=== PATIENT | female | born 1945 | race Caucasian/White ===

== ENCOUNTER → 2024-04-28 | Outpatient (CLI) | payer MEDICARE ==
[2024-04-28 18:48] LABS: Basophils # (A) 0.02 X 10*3/uL (0.00-0.10); Basophils % (A) 0.4 %; Eosinophils # (A) 0.19 X 10*3/uL (0.04-0.35); Eosinophils % (A) 3.5 %; HCT 34.5 % (37.2-46.3); HGB 11.3 g/dL (12.0-15.0); Lymphocytes # (A) 0.94 X 10*3/uL (0.90-5.00); Lymphocytes % (A) 17.5 %; MCH 32.4 pg (27.0-32.0); MCHC 32.8 g/dL (32.0-37.0); MCV 98.9 FL (80.0-97.0); Mean Platelet Volume 9.4 FL (9.5-12.2); Monocytes # (A) 0.69 X 10*3/uL (0.20-1.00); Monocytes % (A) 12.8 %; NRBC Per 100 WBC 0 X 10*3/uL (0.00-0.01); Neutrophils # (A) 3.51 X 10*3/uL (1.80-7.70); Neutrophils % (A) 65.4 %; Platelet Count 290 X 10*3/uL (140-440); RBC 3.49 X 10*6/uL (4.10-5.20); RDW 13.8 % (11.5-14.5); WBC 5.37 X 10*3/uL (4.50-10.00)
[2024-04-28 20:19] LABS: % Iron Saturation 23.92 (12.00-45.00); ALT 13 U/L (8-44); AST 21 U/L (13-35); Albumin 4.3 g/dL (3.8-4.9); Albumin/Globulin Ratio 1.23 Ratio (1.60-3.17); Alkaline Phosphatase 72 U/L (41-126); BUN/Creat Ratio 20.15 Ratio (12.00-20.00); Blood Urea Nitrogen 26.2 mg/dL (9.0-27.0); Calcium 9.9 mg/dL (8.7-10.3); Carbon Dioxide 24.1 mmol/L (21.6-31.8); Chloride 98 mmol/L (96-109); Globulin 3.5 g/dL (1.6-3.3); Glucose 113 mg/dL (70-110); Iron 83 UG/DL (50-170); Potassium 4.3 mmol/L (3.5-5.5); Sodium 135 mmol/L (135-145); Total Bilirubin 0.3 mg/dL (0.3-1.2); Total Iron Binding Capacity 347 UG/DL (228-460); Total Protein 7.8 g/dL (6.2-8.2)
== END | disposition home or self-care (01) ==
LOC: LABWHC1 11:27
PROVIDERS: ATTEND Family Medicine
DX: Z01.812 Encounter for preprocedural laboratory examination (principal); D64.9 Anemia, unspecified; I10 Essential (primary) hypertension
CPT/HCPCS: 36415; 80053; 82607; 82728; 82746; 83540; 83550; 85025

== ENCOUNTER 2024-05-11 15:58 | Inpatient (IN) | payer MEDICARE ==
--- NOTE | 2024-05-11 16:52 | P.HPOR ---
History of Present Illness H&P Date: 05/11/24 This is an 78-year-old female who presented in the office today for evaluation of the left hip after a fall at home today. Patient is status post left total hip arthroplasty with direct anterior approach on 05/07/[address] Ilan Guido. Patient states that she "blacked out" in the restroom earlier today in her home. Patient states that she had discomfort in the hip and could not bear any weight. X-rays done in the office today revealed dislocation of the left total hip arthroplasty. Patient was transported from our office to the emergency room via EMS. Patient's past medical history is significant for hypertension, Sjogren's and breast cancer. Patient denies any numbness, tingling, chest pain, headache or light-headedness. Past Medical History Past Medical History: Cancer, Hypertension Additional Past Medical History / Comment(s): Shogren's disease, breast cancer History of Any Multi-Drug Resistant Organisms: None Reported Past Surgical History: Joint Replacement Additional Past Surgical History / Comment(s): L hip replacement 2024. lumpectomy Past Psychological History: No Psychological Hx Reported Smoking Status: Former smoker Past Alcohol Use History: Occasional Medications and Allergies Allergies Allergy/AdvReac Type Severity Reaction Status Date / Time No Known Allergies Allergy Verified 05/11/24 16:11 Physical Examination On exam patient is resting comfortably in bed in no acute distress. Patient is alert and oriented 3. Left lower extremity: On inspection the left lower extremity is shortened and externally rotated. Skin is intact. The left lower extremity is warm and well perfused. Neurovascular and circulatory status are intact. Exams of the right lower extremity, bilateral upper extremities, head and neck are within normal limits. Assessment and Plan (1) Dislocation of hip, left, closed Status: Acute Code(s): S73.005A - UNSPECIFIED DISLOCATION OF LEFT HIP, INITIAL ENCOUNTER SNOMED Code(s): 758060666 (2) S/P total left hip arthroplasty Status: Acute Code(s): Z96.642 - PRESENCE OF LEFT ARTIFICIAL HIP JOINT SNOMED Code(s): 937313904076 (3) Dislocation of internal left hip prosthesis Status: Acute Code(s): T84.021A - DISLOCATION OF INTERNAL LEFT HIP PROSTHESIS, INIT ENCNTR SNOMED Code(s): 42709735591624280 Plan: 1. Patient is to be NPO after midnight. 2. Continue bedrest and pain control. 3. Appreciate input from internal medicine. 4. Planning for closed reduction, possible open reduction left total hip on 05/12/2024 pending medical clearance and patient consent.
[2024-05-11] MEDS ORDERED: NALOXONE 0.4 MG/ML 1 ML VIAL IV PRN (16:58)
[2024-05-11 17:03] LABS: Basophils % (A) 0 %; Eosinophils % (A) 0 %; HCT 30.9 % (34.0-46.0); HGB 10.1 gm/dL (11.4-16.0); Lymphocytes # (A) 0.5 k/uL (1.0-4.8); Lymphocytes % (A) 5 %; MCH 32.3 pg (25.0-35.0); MCHC 32.8 g/dL (31.0-37.0); MCV 98.5 fL (80.0-100.0); Monocytes # (A) 0.6 k/uL (0-1.0); Monocytes % (A) 7 %; Neutrophils # (A) 7.8 k/uL (1.3-7.7); Neutrophils % (A) 86 %; Platelet Count 343 k/uL (150-450); RBC 3.14 m/uL (3.80-5.40); RDW 12.8 % (11.5-15.5); WBC 9.1 k/uL (3.8-10.6)
--- NOTE | 2024-05-11 17:04 | ED ---
General Adult HPI - General Chief complaint: Fall Stated complaint: Fall-L hip injury Time Seen by Provider: 05/11/24 16:12 Source: patient, EMS Mode of arrival: EMS Limitations: no limitations - History of Present Illness Initial comments: Dictation was produced using [employer] dictation software. please excuse any grammatical, word or spelling errors. Chief Complaint: 78-year-old female presents to the emergency department from Ortho office for left hip dislocation History of Present Illness: Patient is 78-year-old female she fell and dislocated her left hip. Patient states that she must of passed out. She went to Ortho office and was told to come to the ER to be directly admitted for operative hip relocation. Last week she just had her hip replaced by Dr. Guido. The ROS documented in this emergency department record has been reviewed and confirmed by me. Those systems with pertinent positive or negative responses have been documented in the HPI. All other systems are other negative and/or noncontributory. - Related Data Allergies Allergy/AdvReac Type Severity Reaction Status Date / Time No Known Allergies Allergy Verified 05/11/24 16:11 Review of Systems ROS Statement: Those systems with pertinent positive or pertinent negative responses have been documented in the HPI. ROS Other: All systems not noted in ROS Statement are negative. Past Medical History Past Medical History: Cancer, Hypertension Additional Past Medical History / Comment(s): Shogren's disease, breast cancer History of Any Multi-Drug Resistant Organisms: None Reported Past Surgical History: Joint Replacement Additional Past Surgical History / Comment(s): L hip replacement 2024. lumpectomy Past Psychological History: No Psychological Hx Reported Smoking Status: Former smoker Past Alcohol Use History: Occasional General Exam - General Exam Comments Initial Comments: PHYSICAL EXAM: General Impression: Alert and oriented x3, not in acute distress HEENT: Normocephalic atraumatic, extra-ocular movements intact, pupils equal and reactive to light bilaterally, mucous membranes moist. Cardiovascular: Heart regular rate and rhythm Chest: Able to complete full sentences, no retractions, no tachypnea Abdomen: abdomen soft, non-tender, non-distended, no organomegaly Musculoskeletal: Pulses present and equal in all extremities, no peripheral edema short left lower extremity, palpatory tenderness to the left hip Motor: no focal deficits noted Neurological: CN II-XII grossly intact, no focal motor or sensory deficits noted Skin: Intact with no visualized rashes Psych: Normal affect and mood Limitations: no limitations Course Vital Signs 05/11/24 16:07 Temperature 98.4 F Pulse Rate 61 Respiratory 18 Rate Blood Pressure 107/67 O2 Sat by Pulse 98 Oximetry Medical Decision Making - Medical Decision Making Was pt. sent in by a medical professional or institution (, [facility], MAILROOM ASSISTANT, urgent care, hospital, or jail...) When possible be specific @ -No Did you speak to anyone other than the patient for history (EMS, parent, family, police, friend...)? What history was obtained from this source @ -No Did you review nursing and triage notes (agree or disagree)? Why? @ -I reviewed and agree with nursing and triage notes Were old charts reviewed (outside hosp., previous admission, EMS record, old EKG, old radiological studies, urgent care reports/EKG's, jail records)? Report findings @ -No old charts were reviewed Differential Diagnosis (chest pain, altered mental status, abdominal pain women, abdominal pain men, vaginal bleeding, musculoskeletal, weakness, fever, dyspnea, syncope, headache, dizziness, GI bleed, back pain, seizure, CVA, palpatations, mental health)? @ -Differential Syncope: Valvular disease, hypertrophic cardiomyopathy, pulmonary embolism, tamponade, tachycardia, bradycardia, [place], hypovolemia, hemorrhage, dissection, anemia, intracranial hemorrhage, seizure, hypoglycemia, carbon monoxide poisoning, this is not meant to be an all-inclusive list. EKG interpreted by me (3pts min.). @ -None done X-rays interpreted by me (1pt min.). @ -None done CT interpreted by me (1pt min.). @ -None done U/S interpreted by me (1pt. min.). @ -None done What testing was considered but not performed or refused? (CT, X-rays, U/S, labs)? Why? @ -None What meds were considered but not given or refused? Why? @ -None Was smoking cessation discussed for >3mins.? @ -No Were there social determinants of health that impacted care today? How? (Homelessness, low income, unemployed, alcoholism, drug addiction, transportation, low edu. Level, literacy, decrease access to med. care, detention, rehab)? @ -No Was there de-escalation of care discussed even if they declined (Discuss DNR or withdrawal of care, Hospice)? DNR status @ -No What co-morbidities impacted this encounter? (DM, HTN, Smoking, COPD, CAD, Cancer, CVA, ARF, Chemo, Hep., AIDS, mental health diagnosis, sleep apnea, morbid obesity)? @ -None Was patient admitted / discharged? Hospital course, mention meds given and route, prescriptions, significant lab abnormalities, going to OR and other pertinent info. @ -78-year-old female sent in from Ortho office for admission. Plan is for patient to have operative left hip relocation. Patient recently had left hip total arthroplasty. Vital signs are stable. Pending labs and imaging. Patient admitted Did you discuss the management of the patient with other professionals (professionals i.e. , PA, MAILROOM ASSISTANT, lab, RT, psych nurse, oncology social worker, embedded software design engineer, teacher, catapult and arresting gear officer, protective services case worker)? Give summary @ -No Was critical care preformed (if so, how long)? @ -No Undiagnosed new problem with uncertain prognosis? @ -No Drug Therapy requiring intensive monitoring for toxicity (Heparin, Nitro, Insulin, Cardizem)? @ -No Were any procedures done? @ -No Diagnosis/symptom? Acute, or Chronic, or Acute on Chronic? Uncomplicated (without systemic symptoms) or Complicated (systemic symptoms)? @ -Prosthetic left hip dislocation Side effects of treatment? @ -No Exacerbation, Progression, or Severe Exacerbation? @ -No Poses a threat to life or bodily function? How? (Chest pain, [place], [place], pneumonia, PE, COPD, DKA, ARF, appy, cholecystitis, CVA, Diverticulitis, Homicidal, Suicidal, threat to staff... and all critical care pts) @ -yes Disposition Clinical Impression: Hip dislocation, left Disposition: ADMITTED IP TO [facility] Condition: Fair Referrals: None,Stated [Primary Care Provider] - 1-2 days Decision Time: 17:03
--- NOTE | 2024-05-11 17:07 | XR ---
EXAMINATION TYPE: XR Hip Limited LT DATE OF EXAM: 05/11/2024 4:59 PM COMPARISON: None. CLINICAL INDICATION: Female, 78 years old with history of injury, pain TECHNIQUE: AP view(s) obtained. FINDINGS: There is dislocation of the left femoral prosthesis from the acetabular component. No acute fractures are identified. Recent postsurgical air is noted in the proximal thigh. IMPRESSION: 1. Dislocation of the femoral prosthesis from the acetabular component. 2. No acute fractures. [facility], , 05/11/2024 5:05 PM
[2024-05-11 17:15] LABS: ALT 32 U/L (4-34); AST 46 U/L (14-36); African American GFR (CKD) 58 (>60 ml/min/1.73 sqM); Albumin 3.6 g/dL (3.5-5.0); Alkaline Phosphatase 97 U/L (38-126); Anion Gap 14 mmol/L; Blood Urea Nitrogen 30 mg/dL (7-17); Calcium 9.2 mg/dL (8.4-10.2); Carbon Dioxide 26 mmol/L (22-30); Chloride 90 mmol/L (98-107); Glucose 143 mg/dL (74-99); Non-African American GFR(CKD) 50 (>60 ml/min/1.73 sqM); Potassium 3.9 mmol/L (3.5-5.1); Sodium 130 mmol/L (137-145); Total Bilirubin 0.5 mg/dL (0.2-1.3); Total Protein 6.9 g/dL (6.3-8.2)
[2024-05-11] MEDS: DILTIAZEM 125 MG in SODIUM CHLORIDE 0.9% 100 ML IV SCH (17:46)
[2024-05-11] MEDS: HEPARIN SODIUM 1,000 UN/ML (10ML VL) IV ONE (17:54)
[2024-05-11] MEDS: HEPARIN SOD,PORK IN 0.45% NACL 25,000 UNIT in 0.45% NACL 1 250ML.BAG IV SCH (17:55)
[2024-05-11] MEDS: DILTIAZEM DRIP BOLUS FROM BAG 1 MG SOLN IV ONE (17:59)
[2024-05-11] MEDS: METOPROLOL TARTRATE 25 MG TAB PO SCH (18:34)
[2024-05-11] MEDS: MORPHINE SULFATE 4 MG/ML SYRINGE IVP PRN (19:57)
--- NOTE | 2024-05-11 21:01 | CT ---
EXAMINATION TYPE: CT brain wo con DATE OF EXAM: 05/11/2024 8:34 PM COMPARISON: None. CLINICAL INDICATION: Female, 78 years old with history of fall, syncope, Fall/syncope TECHNIQUE: CT of the brain is performed utilizing 3 mm thick sections through the posterior fossa and 3 mm thick sections through the remaining calvarium. Study is performed within 24 hours of arrival to the hospital. Contrast used: mL of , (none if empty) CT DLP: 1131.4 mGycm, Automated exposure control for dose reduction was used. FINDINGS: No abnormal hyperdensity is present to suggest an acute intracranial hemorrhage. No mass lesion is evident. No acute infarcts are evident. Periventricular white matter hypodensity is present, likely on the bas is of chronic white matter ischemic changes. Ventricles and sulci are appropriate for the patient age. Paranasal sinuses and mastoid air cells within the [id number] are clear. IMPRESSION: 1. No acute intracranial process. Follow up MRI can be performed as clinically indicated. 2. Chronic appearing periventricular white matter ischemic-type changes [facility], , 05/11/2024 8:59 PM
[2024-05-11] MEDS: SODIUM CHLORIDE 0.9% 1,000 ML IV SCH (22:08)
[2024-05-12] MEDS: HEPARIN SODIUM 1,000 UN/ML (10ML VL) IV PRN (02:03)
[2024-05-12] MEDS: ASPIRIN 81 MG PO SCH (09:23)
[2024-05-12] MEDS ORDERED: DOCUSATE 100 MG CAP PO PRN (09:30)
[2024-05-12 09:39] LABS: HCT 29.2 % (34.0-46.0); HGB 9.3 gm/dL (11.4-16.0); Hypochromasia Slight; MCH 32.3 pg (25.0-35.0); MCHC 31.9 g/dL (31.0-37.0); MCV 101.4 fL (80.0-100.0); Mean Platelet Volume 7.7; Platelet Count 351 k/uL (150-450); RBC 2.88 m/uL (3.80-5.40); RDW 12.8 % (11.5-15.5); WBC 9.5 k/uL (3.8-10.6)
[2024-05-12 09:59] LABS: ALT 77 U/L (4-34); AST 99 U/L (14-36); African American GFR (CKD) 59 (>60 ml/min/1.73 sqM); Albumin 3.1 g/dL (3.5-5.0); Alkaline Phosphatase 297 U/L (38-126); Anion Gap 10 mmol/L; Blood Urea Nitrogen 25 mg/dL (7-17); Calcium 8.6 mg/dL (8.4-10.2); Carbon Dioxide 26 mmol/L (22-30); Chloride 92 mmol/L (98-107); Glucose 108 mg/dL (74-99); Non-African American GFR(CKD) 51 (>60 ml/min/1.73 sqM); Potassium 3.9 mmol/L (3.5-5.1); Sodium 128 mmol/L (137-145); Total Bilirubin 0.8 mg/dL (0.2-1.3); Total Protein 6.1 g/dL (6.3-8.2)
[2024-05-12] MEDS: hydroCHLOROthiazide 12.5 MG CAP PO SCH (10:32)
[2024-05-12] MEDS: cycloSPORINE 0.05% OPHTH 0.4 ML DROPERETTE BOTH EYES SCH (10:32)
[2024-05-12] MEDS: LOSARTAN 50 MG TAB PO SCH (10:32)
[2024-05-12] MEDS: METOPROLOL TARTRATE 25 MG TAB PO STA (11:52)
--- NOTE | 2024-05-12 12:33 | P.CRDCN ---
History of Present Illness History of present illness: HISTORY OF PRESENT ILLNESS: This is a 78-year-old female with a past medical history significant for hypertension, rheumatoid arthritis, and recent hip replacement. Patient follows in the office with Dr. Stallings. We have been asked to see the patient in consultation for atrial fibrillation with RVR. Patient examined at the bedside in the emergency room. Patient is status post left total hip arthroplasty on 05/07/[address] Guido. Patient states that she was at home using the ba throom. She states that she was sitting on the toilet and tried to get up and then she blacked out and woke up on the floor. She does report feeling dizzy prior to this happening. She denied having any palpitations. Denied any chest pain or shortness of breath. The patient does report that she thinks her pain pills have been contributing to some of her symptoms recently. Patient presented to the emergency room for further evaluation. Patient was found to be in atrial fibrillation with RVR. Patient was started on IV heparin and IV Cardizem. She denies a known history of atrial fibrillation. She remains in atrial fibrillation at the time of examination with a heart rate in the 90s. Her IV Cardizem is infusing at 15 mg an hour. DIAGNOSTICS: - EKG reveals A-fib with RVR. - Laboratory data: WBC 9.5. Hemoglobin 9.3. Platelet count 251. Sodium 128. Potassium 3.9. BUN 25. Creatinine 1.04. Magnesium 2.0. Troponin 0.202. 0.249. 0.356. - Current home cardiac medications include amlodipine 5 mg at night, losartanhydrochlorothiazide 100-12.5 mg daily, metoprolol tartrate 50 mg daily. - Most recent echocardiogram obtained in January 2022 revealed ejection fraction 55%, mild concentric LVH, moderate pulmonary hypertension, mild right ventricular enlargement, aortic valve sclerosis - Patient underwent Lexiscan stress test in June 2023 which was negative for ischemia REVIEW OF SYSTEMS: At the time of my exam: CONSTITUTIONAL: Denies fever or chills. HEENT: Denies blurred vision, vision changes, or eye pain. Denies hemoptysis CARDIOVASCULAR: Denies chest pain. Denies orthopnea. Denies PND. Denies palpitations RESPIRATORY: Denies shortness of breath. GASTROINTESTINAL: Denies abdominal pain. Denies nausea or vomiting. HEMATOLOGIC: Denies bleeding disorders. GENITOURINARY: Denies any blood in urine. SKIN: Denies pruitis. Denies rash. PHYSICAL EXAM: VITAL SIGNS: Reviewed. GENERAL: Well-developed in no acute distress. HEENT: Head is normocephalic. Pupils are equal, round. Sclerae anicteric. Mucous membranes of the mouth are moist. Neck supple. No JVD or thyromegaly LUNGS: Respirations even and unlabored. Lungs essentially clear to auscultation bilaterally. HEART: Irregular rate and rhythm. S1 and S2 heard. ABDOMEN: Soft. Nondistended. Nontender. EXTREMITIES: Normal range of motion. No clubbing or cyanosis. Peripheral pulses intact. No lower extremity edema NEUROLOGIC: Awake and alert. Oriented x 3. ASSESSMENT: Syncope New onset atrial fibrillation with RVR, exact duration unknown Elevated troponins, likely type II IL secondary to oxygen supply/demand mismatch Hyponatremia Left hip dislocation Status post left total hip arthroplasty, 05/07/2024 Hypertension History of rheumatoid arthritis Moderate pulmonary hypertension PLAN: Obtain 2D echo to assess cardiac structure and function TSH checked and within normal limits Continue IV heparin. Postoperatively, patient will need to be transitioned to oral anticoagulation Continue IV Cardizem for rate control. Wean as heart rate will tolerate to maintain heart rate less than 100 Decrease losartan to 50 mg daily Increase metoprolol to tartrate to 50 mg twice a day Continue telemetry monitoring Patient is scheduled to undergo closed reduction possible open reduction of left total hip today with orthopedics There are no absolute contraindications for patient to proceed from a cardiac standpoint Further recommendations pending patient course Nurse practitioner note has been reviewed by physician. Signing provider agrees with the documented findings, assessment, and plan of care documented by RN MILITARY as a scribe. Past Medical History Past Medical History: Cancer, Hypertension Additional Past Medical History / Comment(s): Shogren's disease, breast cancer History of Any Multi-Drug Resistant Organisms: None Reported Past Surgical History: Joint Replacement Additional Past Surgical History / Comment(s): L hip replacement 2024. lumpectomy Past Psychological History: No Psychological Hx Reported Smoking Status: Former smoker Past Alcohol Use History: Occasional Medications and Allergies Home Medications Medication Instructions Recorded Confirmed Type Docusate [Colace] 100 mg PO BID PRN 05/11/24 05/11/24 History HYDROcodone/APAP 7.5-325MG [[place] 1 - 2 tab PO Q6H PRN MDD 6 tablets 05/11/24 05/11/24 History 7.5-325] Losartan/Hydrochlorothiazide 1 tab PO DAILY 05/11/24 05/11/24 History [Hyzaar 100-12.5 Tablet] Metoprolol Tartrate [Lopressor] 50 mg PO DAILY 05/11/24 05/11/24 History Pilocarpine [Salagen] 10 mg PO QAM 05/11/24 05/11/24 History Pilocarpine [Salagen] 15 mg PO HS 05/11/24 05/11/24 History amLODIPine [Norvasc] 5 mg PO HS 05/11/24 05/11/24 History cycloSPORINE 0.05% OPHTH SOLN 1 drop BOTH EYES BID 05/11/24 05/11/24 History [Restasis] Allergies Allergy/AdvReac Type Severity Reaction Status Date / Time No Known Allergies Allergy Verified 05/11/24 17:37 Physical Exam Vitals: Vital Signs Temp Pulse Resp BP Pulse Ox 05/12/24 11:11 93 18 126/57 100 05/12/24 08:00 113 H 20 117/72 94 L 05/12/24 06:00 98.1 F 114 H 20 112/53 95 05/12/24 02:00 98 20 125/58 100 05/12/24 00:30 96 20 135/60 95 05/11/24 23:18 76 18 101/54 97 05/11/24 20:00 99 18 102/75 98 05/11/24 18:26 144 H 18 123/69 98 05/11/24 18:00 158 H 18 107/85 05/11/24 16:07 98.4 F 61 18 107/67 98 Intake and Output 05/11/24 05/12/24 05/12/24 22:59 06:59 14:59 Intake Total 5.833 152.453 125 Balance 5.833 152.453 125 Intake: Intake, IV Titration 5.833 152.453 125 Amount Diltiazem 125 mg In 5.833 97 125 Sodium Chloride 0.9% 100 ml @ 10 MG/HR 10 mls/hr IV .[id number] [facility] Rx#: [id number] Heparin Sod,Pork in 0.45% 55.453 NaCl 25,000 unit In 0.45 % NaCl 1 250ml.bag @ 12 UNITS/KG/HR 6.804 mls/hr IV .Q24H [facility] Rx#: [id number] Other: Weight 56.699 kg Results 05/12/24 06:49 05/12/24 06:49 Cardiac Enzymes 05/11/24 05/11/24 05/11/24 Range/Units 16:47 17:17 20:00 AST 46 H (14-36) U/L Troponin I 0.202 H* 0.249 H* (0.000-0.034) ng/mL 05/12/24 05/12/24 Range/Units 00:09 06:49 AST 99 H (14-36) U/L Troponin I 0.356 H* (0.000-0.034) ng/mL Coagulation 05/12/24 05/12/24 Range/Units 00:09 06:49 APTT 28.0 45.4 H (22.0-30.0) sec CBC 05/11/24 05/12/24 Range/Units 16:47 06:49 WBC 9.1 9.5 (3.8-10.6) k/uL RBC 3.14 L 2.88 L (3.80-5.40) m/uL Hgb 10.1 L 9.3 L (11.4-16.0) gm/dL Hct 30.9 L 29.2 L (34.0-46.0) % Plt Count 343 351 (150-450) k/uL Comprehensive Metabolic Panel 05/11/24 05/12/24 Range/Units 16:47 06:49 Sodium 130 L 128 L (137-145) mmol/L Potassium 3.9 3.9 (3.5-5.1) mmol/L Chloride 90 L 92 L (98-107) mmol/L Carbon Dioxide 26 26 (22-30) mmol/L BUN 30 H 25 H (7-17) mg/dL Creatinine 1.06 H 1.04 (0.52-1.04) mg/dL Glucose 143 H 108 H (74-99) mg/dL Calcium 9.2 8.6 (8.4-10.2) mg/dL AST 46 H 99 H (14-36) U/L ALT 32 77 H (4-34) U/L Alkaline Phosphatase 97 297 H (38-126) U/L Total Protein 6.9 6.1 L (6.3-8.2) g/dL Albumin 3.6 3.1 L (3.5-5.0) g/dL Current Medications Generic Name Dose Route Start Last Admin Trade Name Freq PRN Reason Stop Dose Admin Amlodipine Besylate 5 mg 05/12/24 21:00 Amlodipine 5 Mg Tab PO HS MAGDY Aspirin 81 mg 05/12/24 09:30 05/12/24 09:23 Aspirin 81 Mg PO Not Given DAILY MAGDY Cyclosporine 1 drops 05/12/24 09:00 05/12/24 10:32 Cyclosporine 0.05% Ophth 0.4 Ml Droperette BOTH EYES Not Given BID MAGDY Docusate Sodium 100 mg 05/12/24 09:30 Docusate 100 Mg Cap PO BID PRN Constipation Heparin Sodium (Porcine) 0 unit 05/11/24 17:16 05/12/24 02:03 Heparin Sodium 1,000 Un/Ml (10ml Vl) IV 2,834.5 unit PER PROTOCOL PRN Administration Low PTT Protocol Hydrochlorothiazide 12.5 mg 05/12/24 09:00 05/12/24 10:32 Hydrochlorothiazide 12.5 Mg Cap PO 12.5 mg DAILY MAGDY Administration Sodium Chloride 1,000 mls @ 20 mls/hr 05/11/24 17:00 05/11/24 22:08 Saline 0.9% IV 20 mls/hr .Q24H MAGDY Administration Diltiazem HCl 125 mg/ Sodium 125 mls @ 10 mls/hr 05/11/24 17:15 05/12/24 10:30 Chloride IV 15 mg/hr .[id number] MAGDY 15 mls/hr Administration 10 MG/HR Heparin Sodium/Sodium Chloride 250 mls @ 6.804 mls/hr 05/11/24 17:30 05/12/24 02:04 25,000 unit/ Sodium Chloride IV 15 units/kg/hr .Q24H MAGDY 8.505 mls/hr Titration Protocol 12 UNITS/KG/HR Losartan Potassium 50 mg 05/13/24 09:00 Losartan 50 Mg Tab PO DAILY [facility] Metoprolol Tartrate 50 mg 05/12/24 21:00 Metoprolol Tartrate 50 Mg Tab PO BID [facility] Morphine Sulfate 4 mg 05/11/24 19:50 05/12/24 08:26 Morphine Sulfate 4 Mg/Ml Syringe IVP 4 mg Q4HR PRN Administration Pain Naloxone HCl 0.2 mg 05/11/24 16:58 Naloxone 0.4 Mg/Ml 1 Ml Vial IV Q2M PRN Opioid Reversal Intake and Output 05/11/24 05/12/24 05/12/24 22:59 06:59 14:59 Intake Total 5.833 152.453 125 Balance 5.833 152.453 125 Intake: Intake, IV Titration 5.833 152.453 125 Amount Diltiazem 125 mg In 5.833 97 125 Sodium Chloride 0.9% 100 ml @ 10 MG/HR 10 mls/hr IV .[id number] [facility] Rx#: [id number] Heparin Sod,Pork in 0.45% 55.453 NaCl 25,000 unit In 0.45 % NaCl 1 250ml.bag @ 12 UNITS/KG/HR 6.804 mls/hr IV .Q24H [facility] Rx#: [id number] Other: Weight 56.699 kg 05/12/24 06:49 05/12/24 06:49
--- NOTE | 2024-05-12 13:24 | P.CONS ---
History of Present Illness - Reason for Consult Consult date: 05/12/24 Medical Clearance/Medical Management Requesting physician: Ilan Guido - History of Present Illness History of Presenting Illness: Patient is a very pleasant 78-year-old female with a past medical history of hypertension, breast cancer status post lumpectomy, Sjogren's disease, and recent left total hip arthroplasty on 05/07/[address] Melendez. She presented to the emergency department secondary to fall/syncopal episode. Patient reports she got up to use the restroom and upon standing became dizzy/lightheaded resulting in her blacking out/syncopal episode falling to the floor onto her left hip. She denies having any headache, changes in vision or hearing, chest pain, palpitations, shortness of breath, cognitive complaints. Patient reports severe pain left hip and lower extremity and is stated above admits to dizziness/lightheadedness prior to syncopal episode/fall. Upon arrival to our facility, patient underwent evaluation in the emergency department. X-ray left hip was completed revealing a dislocation of the femoral prosthesis from the acetabular component with no acute fractures. Vital signs upon arrival show blood pressure 107/67, heart rate 61, respiratory rate 18, temp 98.4 F, and SpO2 of 98% on room air. Shortly after arrival patient was found to be tachycardic with heart rate in 150s. EKG was completed showing atrial fibrillation with RVR at 159 bpm with T wave inversion in inferior lateral leads I, II, III, aVL, aVF, and V4 through V6. CT brain was negative for acute intracranial process showing chronic appearing periventricular white matter ischemic changes. Labs were completed and reviewed. CBC showing normocytic anemia with hemoglobin of 10.1. BMP showing mild hyponatremia with sodium of 130, chloride of 90, BUN 30, creatinine 1.06, and GFR 50. Blood glucose was 143. Liver profile showing slightly elevated AST of 46 otherwise normal findings. Troponin was elevated at 0.202 trended resulting at 0.202, 0.249, and 0.356. Patient was started on Cardizem infusion and heparin infusion. She was admitted to orthopedic surgery team and we were consulted for medical clearance followed by medical management throughout hospitalization. Cardiology was consulted secondary to new onset atrial fibrillation with RVR and syncope. Review of systems: Pertinent positives and negatives as discussed in HPI, a complete review of systems was performed and all other systems are negative. Physical exam: Vital signs reviewed and stable. General: Nontoxic, no distress and appears stated age. Derm: Skin warm and dry, normal coloration for ethnicity. Head: Atraumatic, normocephalic and symmetric. Eyes: EOM's intact, no lid lag, and anicteric sclera Mouth: no lip lesions, mucus membranes moist Cardiovascular: Irregularly irregular with normal S1S2, no murmur, positive posterior tibial pulses bilaterally, and cap refill < 2 seconds. Lungs: Respirations even, regular, and unlabored on room air. Lungs CTA bilaterally, no rhonchi, no rales, no wheezing, and no accessory muscle usage. Abdominal: soft, nontender to palpation, no guarding, no appreciable organomegaly Ext:. No gross muscle atrophy, no edema, no contractures. Sensation intact. Movement of toes intact. Left lower extremity positive shortening with lateral rotation. Neuro: Speech clear, face symmetrical and CN II-XII grossly intact with no noted focal neuro deficits Psych: Alert and oriented to person, place, time, and situation. Appropriate and pleasant affect. Assessment and Plan of Care: Dislocation of the femoral prosthesis from the acetabular component Status post left total hip arthroplasty on 05/07/2024 -METS score > 4. -NSQIP score showing patient at a below average risk for serious complication at 5.3% with average risk being 6%, average risk of cardiac complication at 0.8%, and an average risk of at 1.1% with average risk of 1.1%. -Discussed with orthopedic surgery, patient will require cardiac clearance prior to proceeding with planned surgical intervention. -If patient receives cardiac clearance may proceed from medical perspective with planned closed reduction and internal rotation of left femoral prosthesis from the acetabular component. New onset atrial fibrillation with RVR NSTEMI, likely type II secondary to RVR Syncopal episode Microcytic anemia Transaminitis, likely reactive secondary to above Hyponatremia Hypertension -Cardiology consulted for evaluation and surgical clearance -Order placed for echocardiogram -Continue Cardizem infusion at 10 mg/h and titrate up to 15 mg/h for goal heart rate of 80-100 -Telemetry monitoring. -Continue low intensity heparin infusion with close monitoring of PTT for goal therapeutic range of 45 to 79 seconds. -Patient started on aspirin 81 mg daily and to continue metoprolol titrate 50 mg daily along with losartan 100 mg daily. -Hold hydrochlorothiazide secondary to hyponatremia. -Continue close monitoring of sodium level, hemoglobin, and liver enzymes with repeat a.m. labs. Additional orders may be placed pending these results. History of breast cancer -Patient is status postlumpectomy, recommend continuation of yearly cancer scre enings. Data and imaging reviewed: As stated above in HPI Thank you for allowing us to participate in the care of this pleasant patient. Do not hesitate to contact us with questions. Someone can be reached from the [facility] hospitalist group all hours of the day at [phone] or via [facility]. Patient was seen independently by Nurse Practitioner. This document was prepared using Rol[employer] dictation software. Please allow for errors in pension consultant while rare they do occur. Anival Escalante NP rendered care for this patient independently, reviewed the findings and plan as documented in the note above and agree with plan. I did not physically speak with or examine the patient on this date. Past Medical History Past Medical History: Cancer, Hypertension Additional Past Medical History / Comment(s): Shogren's disease, breast cancer History of Any Multi-Drug Resistant Organisms: None Reported Past Surgical History: Joint Replacement Additional Past Surgical History / Comment(s): L hip replacement 2024. lumpectomy Past Psychological History: No Psychological Hx Reported Smoking Status: Former smoker Past Alcohol Use History: Occasional Medications and Allergies Home Medications Medication Instructions Recorded Confirmed Type Docusate [Colace] 100 mg PO BID PRN 05/11/24 05/11/24 History HYDROcodone/APAP 7.5-325MG [Bronson 1 - 2 tab PO Q6H PRN MDD 6 tablets 05/11/24 05/11/24 History 7.5-325] Losartan/Hydrochlorothiazide 1 tab PO DAILY 05/11/24 05/11/24 History [Hyzaar 100-12.5 Tablet] Metoprolol Tartrate [Lopressor] 50 mg PO DAILY 05/11/24 05/11/24 History Pilocarpine [Salagen] 10 mg PO QAM 05/11/24 05/11/24 History Pilocarpine [Salagen] 15 mg PO HS 05/11/24 05/11/24 History amLODIPine [Norvasc] 5 mg PO HS 05/11/24 05/11/24 History cycloSPORINE 0.05% OPHTH SOLN 1 drop BOTH EYES BID 05/11/24 05/11/24 History [Restasis] Allergies Allergy/AdvReac Type Severity Reaction Status Date / Time No Known Allergies Allergy Verified 05/11/24 17:37 Physical Exam Vitals: Vital Signs Temp Pulse Resp BP Pulse Ox 05/12/24 08:00 113 H 20 117/72 94 L 05/12/24 06:00 98.1 F 114 H 20 112/53 95 05/12/24 02:00 98 20 125/58 100 05/12/24 00:30 96 20 135/60 95 05/11/24 23:18 76 18 101/54 97 05/11/24 20:00 99 18 102/75 98 05/11/24 18:26 144 H 18 123/69 98 05/11/24 18:00 158 H 18 107/85 05/11/24 16:07 98.4 F 61 18 107/67 98 Intake and Output 05/11/24 05/12/24 05/12/24 22:59 06:59 14:59 Intake Total 5.833 152.453 Balance 5.833 152.453 Intake: Intake, IV Titration 5.833 152.453 Amount Diltiazem 125 mg In 5.833 97 Sodium Chloride 0.9% 100 ml @ 10 MG/HR 10 mls/hr IV .[id number] MAGDY Rx#: [id number] Heparin Sod,Pork in 0.45% 55.453 NaCl 25,000 unit In 0.45 % NaCl 1 250ml.bag @ 12 UNITS/KG/HR 6.804 mls/hr IV .Q24H MAGDY Rx#: [id number] Other: Weight 56.699 kg Results CBC & Chem 7: 05/12/24 06:49 05/12/24 06:49 Labs: Abnormal Lab Results - Last 24 Hours (Table) 05/11/24 05/11/24 05/11/24 Range/Units 16:47 16:47 17:17 RBC 3.14 L (3.80-5.40) m/uL Hgb 10.1 L (11.4-16.0) gm/dL Hct 30.9 L (34.0-46.0) % Neutrophils # 7.8 H (1.3-7.7) k/uL Lymphocytes # 0.5 L (1.0-4.8) k/uL APTT (22.0-30.0) sec Sodium 130 L (137-145) mmol/L Chloride 90 L (98-107) mmol/L BUN 30 H (7-17) mg/dL Creatinine 1.06 H (0.52-1.04) mg/dL Glucose 143 H (74-99) mg/dL AST 46 H (14-36) U/L Troponin I 0.202 H* (0.000-0.034) ng/mL 05/11/24 05/12/24 05/12/24 Range/Units 20:00 00:09 06:49 RBC (3.80-5.40) m/uL Hgb (11.4-16.0) gm/dL Hct (34.0-46.0) % Neutrophils # (1.3-7.7) k/uL Lymphocytes # (1.0-4.8) k/uL APTT 45.4 H (22.0-30.0) sec Sodium (137-145) mmol/L Chloride (98-107) mmol/L BUN (7-17) mg/dL Creatinine (0.52-1.04) mg/dL Glucose (74-99) mg/dL AST (14-36) U/L Troponin I 0.249 H* 0.356 H* (0.000-0.034) ng/mL
[2024-05-12] MEDS ORDERED: MAGNESIUM HYDROXIDE 2,400 MG/30 ML CUP PO PRN (15:54)
[2024-05-12] MEDS ORDERED: NALOXONE 0.4 MG/ML 1 ML VIAL IV PRN (15:54)
[2024-05-12] MEDS ORDERED: HYDROmorphone 0.5 MG/0.5 ML SYRINGE IVP PRN ×3 (15:54)
[2024-05-12] MEDS ORDERED: ONDANSETRON 4 MG/2 ML VIAL IVP PRN (15:54)
[2024-05-12] MEDS ORDERED: HYDROcodone/APAP 5-325MG 1 EACH TAB PO PRN ×2 (15:58)
[2024-05-12] MEDS ORDERED: KETAMINE HCL IN 0.9 % NACL 50 MG/5 ML SYRINGE ONE (17:17)
[2024-05-12] MEDS ORDERED: SUCCINYLCHOLINE CHLORIDE 200 MG/10 ML VIAL IV ONE (17:17)
[2024-05-12] MEDS ORDERED: WATER FOR INJECTION, STERILE 10 ML VIAL IV ONE (17:17)
[2024-05-12] MEDS ORDERED: PHENYLEPHRINE-0.9% NACL SYG 1,000 MCG/10 ML SYRINGE ONE (17:17)
[2024-05-12] MEDS ORDERED: ceFAZolin 1 GM/50 ML BAG (PMX) ONE (17:17)
[2024-05-12] MEDS ORDERED: PROPOFOL 10 MG/ML 20 ML VIAL IV ONE (17:17)
[2024-05-12] MEDS ORDERED: fentaNYL (PF) 50 MCG/ML 2 ML AMP ONE (17:17)
[2024-05-12] MEDS ORDERED: ePHEDrine 50 MG/ML 1 ML VIAL ONE (17:17)
[2024-05-12] MEDS: LACTATED RINGERS 1,000 ML IV ONE (17:21)
--- NOTE | 2024-05-12 18:24 | P.OP ---
Date of Procedure: 05/12/24 Preoperative Diagnosis: Dislocation left total hip arthroplasty Postoperative Diagnosis: Dislocation left total hip arthroplasty Procedure(s) Performed: 1. Attempted closed reduction left total hip arthroplasty 2. Open reduction left totoal hip arthroplasty with revision to dual-mobilty liner Implants: [employer] OR30, 38 mm ID, 50 mm OD, Oxinium dual mobility liner [employer] OR30, 22 mm ID, 38 mm OD, XLPE Dual mobility insert [employer] Oxinium femoral head 22 m, +0 All components were press-fit. The articulation is Oxinium on polyethylene. Anesthesia: GETA Surgeon: Ilan Guido [employer] Teacher #1: Iqra Ann Estimated Blood Loss (ml): 100 Pathology: none sent Condition: stable Disposition: PACU Indications for Procedure: This is an 78-year-old female that had a left total hip arthroplasty with a direct anterior approach. Last . On Saturday morning, she experienced an episode of dizziness and passed out, and when she awoke, she had extreme pain in the left hip. She came to the office and x-rays were obtained. It showed a dislocated left total hip arthroplasty. Patient was brought to the hospital by EMS in an emergency room was found to have elevated troponins and changes on her EKG. Patient was evaluated by cardiology and cleared for the closed possible open reduction of her left total hip arthroplasty. Informed consent was obtained. Operative Findings: The operative findings are consistent with a closed dislocation of the left total hip arthroplasty. The hip was incarcerated within the soft tissues necessitated an open reduction. Because of the risk of redislocation, the hip was revised to a dual mobility liner. Description of Procedure: The patient was seen in the preoperative area and the surgical options were discussed with the patient and her family. Informed consent was obtained for closed possible open reduction of left total hip arthroplasty. There is also discussed with the patient and her family that if an open reduction is required, I will most likely convert her to a dual mobility hip liner in order to increase her stability. Informed consent was obtained and the patient was brought to the operating room. A general anesthetic was administered by the anesthesia department and patient was placed on the Ashley table. Using fluoroscopic guidance, a close reduction of the left hip was then attempted. Close reduction was unable to be achieved, and the decision to proceed with an open reduction with a conversion total layer liner was reached. The patient was given preoperative antibiotics intravenously. A general anesthetic was administered by the anesthesia department. The patient was then placed on the Ashley table with the bony prominences well-padded. The hip area was then prepped with a ChloraPrep solution and draped in the usual sterile fashion. A universal timeout was then performed, which confirmed the patient's name, surgical site, ALLERGIES, and procedure being performed on the consent. Next the incision site was located at 1 cm distal and 4 cm lateral to the anterior superior iliac spine, utilizing the prior incision. The skin and subcutaneous tissues were sharply incised. Incision was carefully dissected down to the fascia overlying the tensor fascia baudilio muscle. This fascia was then incised in line with the muscle fibers. Care was taken to stay laterally in order to avoid injuring the lateral femoral cutaneous nerve. Next, using blunt finger dissection, the tensor fascia baudilio muscle was dissected off its investing fascia. The muscle was then carefully retracted laterally with a cobra retractor over the lateral neck of the femur. The proximal femur was then visualized. the femoral head was then removed with a osteotome and a mallet. The femoral stem was inspected and found to be well fixed. Attention was then turned to the acetabulum. The acetabulum was exposed. The polyethylene liner was then removed from the acetabular component with the appropriate tool. The acetabulum was inspected and found to be well fixed. The dual mobility insert was then inserted into the existing acetabular liner with component locking being confirmed. Attention was then directed to the femur. the proximal femur was then reexposed. The appropriate dual mobility head and liner was inserted on the femoral neck and impacted. Component locking was then confirmed.. Final implants were then impacted and the hip was again reduced. Final fluoroscopic x-rays confirmed that the components were in anatomic position. The leg lengths and offset were measured and were found to coincide with the trial measurements. The hip was also taken through range of motion, and found to be stable. The hip was then copiously irrigated with antibiotic solution with pulsatile lavage. The hip was then irrigated with Irrisept solution. The fascia was then closed with 2-0 strata fix suture. The subcutaneous tissue was closed with 3-0 Vicryl. The subcuticular tissue was closed with 3-0 moncryl suture. The skin was then closed with Exofin skin glue. After the glue and dried, and Optifoam silver impregnated dressing was applied. The patient was then transferred to the recovery room in stable condition. The assistant food service director SANDRA King was required due to the complexity of surgery, and the need for skilled rn surgical pcu for positioning, draping, exposure, retraction, and closure of the wound.
[2024-05-12] MEDS: IV FLUID CONTINUATION 1,000 ML IV ONE ×2 (18:41→20:04)
--- NOTE | 2024-05-12 18:43 | FL ---
EXAMINATION TYPE: FL guidance operating room, XR Hip Limited LT DATE OF EXAM: 05/12/2024 6:25 PM COMPARISON: Pre Operative Images if available both CT/MRI or plain film CLINICAL INDICATION: Female, 78 years old with history of Closed Red Left Hip; TECHNIQUE: FL guidance operating room, XR Hip Limited LT, multiple fluoroscopic images provided for p rocedure. DAP: 0.8942 mGym2 Gycm2 uGym2 cGycm2 or equivalent. FINDINGS: Fluoroscopic images during internal fixation/arthroplasty demonstrate hardware in appropriate positio n. Hardware appears intact. No immediate complication identified. IMPRESSION: 1. No evidence for intraoperative complication. 2. Please see the operative/procedural note for further details. [facility], , 05/12/2024 6:41 PM
[2024-05-12] MEDS: HYDROmorphone 0.5 MG/0.5 ML SYRINGE IVP PRN (19:00)
[2024-05-12] MEDS: HYDROmorphone 0.5 MG/0.5 ML SYRINGE IVP ONE (19:00)
--- NOTE | 2024-05-12 20:12 | XR ---
EXAMINATION TYPE: XR Hip Limited LT DATE OF EXAM: 05/12/2024 8:00 PM COMPARISON: 05/11/2024 CLINICAL INDICATION: Female, 78 years old with history of postop; PHH, pain TECHNIQUE: XR Hip Limited LT; Frontal view FINDINGS: Post arthroplasty changes, hardware is intact, alignment is appropriate. No evidence of fra cture. No evidence of any acute osseous pathology or joint dislocation. IMPRESSION: Hip arthroplasty with hardware intact and in appropriate alignment. No acute fracture. [facility], , 05/12/2024 8:09 PM
[2024-05-12] MEDS: METOPROLOL TARTRATE 50 MG TAB PO SCH (21:06)
[2024-05-12] MEDS: SENNOSIDES-DOCUSATE SODIUM 1 EACH TAB PO SCH (21:06)
[2024-05-12] MEDS: amLODIPine 5 MG TAB PO SCH (21:06)
[2024-05-12] MEDS: SODIUM CHLORIDE 0.9% 1,000 ML IV SCH (21:50)
--- NOTE | 2024-05-13 07:53 | CA ---
Transthoracic Echo Report Name: Marta Merritt Age: 78 Gender: F : 1945 Exam Date: 05/12/2024 15:32 Exam Location: [facility] Ht (in): 63 Wt (lb): 125 Ordering Physician: Anival Escalante Attending/Referring Phys: Bus Transportation Manager Lluvia Villanueva RDCS Procedure CPT: Indications: elevated troponins, atrial fib Cardiac Hx: Technical Quality: Fair Contrast 1: Total Dose (mL): Contrast 2: Total Dose (mL): MEASUREMENTS (Male / Female) Normal Values 2D ECHO LV Diastolic Diameter PLAX 4.2 cm 4.2 - 5.9 / 3.9 - 5.3 cm LV Systolic Diameter PLAX 3.1 cm IVS Diastolic Thickness 1.0 cm 0.6 - 1.0 / 0.6 - 0.9 cm LVPW Diastolic Thickness 1.0 cm 0.6 - 1.0 / 0.6 - 0.9 cm LV Relative Wall Thickness 0.5 LVOT Diameter 1.9 cm Aortic Root Diameter 2.4 cm LV Diastolic Volume MOD BP 59.1 cm??? 67 - 155 / 56 - 104 cm??? LV Systolic Volume MOD BP 20.6 cm??? 22 - 58 / 19 - 49 cm??? LV Ejection Fraction MOD BP 65.1 % >= 55 % LV Cardiac Index MOD BP 2200.1 cm???/min???m??? LV Diastolic Volume MOD 4C 60.0 cm??? LV Systolic Volume MOD 4C 20.1 cm??? LV Ejection Fraction MOD 4C 66.5 % LV Cardiac Index MOD 4C 2280.8 cm???/min???m??? LV Diastolic Length 4C 7.2 cm LV Systolic Length 4C 5.9 cm LV Diastolic Volume MOD 2C 55.5 cm??? LV Systolic Volume MOD 2C 20.7 cm??? LV Ejection Fraction MOD 2C 62.6 % LV Cardiac Index MOD 2C 1986.3 cm???/min???m??? LV Diastolic Length 2C 6.8 cm LV Systolic Length 2C 5.8 cm Ascending Aorta Diameter 3.0 cm DOPPLER AV Peak Velocity 252.8 cm/s AV Peak Gradient 25.6 mmHg AV Mean Velocity 161.7 cm/s AV Mean Gradient 12.4 mmHg AV Velocity Time Integral 35.4 cm LVOT Peak Velocity 160.4 cm/s LVOT Peak Gradient 10.3 mmHg LVOT Velocity Time Integral 23.6 cm LVOT Stroke Volume 63.8 cm??? LVOT Stroke Volume Index 40.3 ml/m??? LVOT Cardiac Index 3648.6 cm???/min???m??? AV Area Cont Eq vti 1.8 cm??? AV Area Cont Eq pk 1.7 cm??? MV Peak Velocity 179.0 cm/s MV Peak Gradient 12.8 mmHg MV Mean Velocity 104.3 cm/s MV Mean Gradient 5.4 mmHg MV Velocity Time Integral 30.5 cm TR Peak Velocity 315.2 cm/s TR Peak Gradient 39.7 mmHg Right Atrial Pressure 20.0 mmHg Pulmonary Artery Systolic Pressu 59.7 mmHg Right Ventricular Systolic Press 59.7 mmHg PV Peak Velocity 99.1 cm/s PV Peak Gradient 3.9 mmHg FINDINGS Left Ventricle Left ventricular ejection fraction is estimated at 60-65 %. Mildly increased posterior wall thickness. Left ventricular cavity size normal. No obvious regional wall motion abnormalities. Right Ventricle Normal right ventricular size and function. Severe pulmonary hypertension. Right Atrium Normal right atrial size. Left Atrium Normal left atrial size. Mitral Valve Structurally normal mitral valve. No evidence for mitral valve prolapse. Moderate mitral stenosis. Trace to mild mitral regurgitation. Aortic Valve Trileaflet aortic valve. Aortic valve sclerosis. Mild aortic stenosis. No aortic regurgitation. Tricuspid Valve Structurally normal tricuspid valve. [id number] tricuspid regurgitation. Pulmonic Valve Structurally normal pulmonic valve. No pulmonic stenosis. Mild pulmonic regurgitation. Pericardium No pericardial effusion. Aorta Normal size aortic root and proximal ascending aorta. CONCLUSIONS Normal biventricular systolic function Thickened mitral valve apparatus with moderate mitral stenosis Severe pulmonary hypertension. Aortic sclerosis with mild stenosis with no insufficiency Previewed by: Dr. Gregory Restrepo MD (Electronically Signed) Final Date: 13 May 2024 07:53
[2024-05-13] MEDS: LOSARTAN 50 MG TAB PO SCH (08:44)
[2024-05-13 09:18] LABS: Basophils % (A) 0 %; Eosinophils % (A) 0 %; HCT 25.7 % (34.0-46.0); HGB 8.4 gm/dL (11.4-16.0); Lymphocytes # (A) 0.6 k/uL (1.0-4.8); Lymphocytes % (A) 8 %; MCH 31.7 pg (25.0-35.0); MCHC 32.5 g/dL (31.0-37.0); MCV 97.6 fL (80.0-100.0); Mean Platelet Volume 7.6; Monocytes # (A) 0.6 k/uL (0-1.0); Monocytes % (A) 7 %; Neutrophils # (A) 6.9 k/uL (1.3-7.7); Neutrophils % (A) 83 %; Platelet Count 377 k/uL (150-450); RBC 2.64 m/uL (3.80-5.40); WBC 8.3 k/uL (3.8-10.6)
[2024-05-13 10:04] LABS: ALT 61 U/L (4-34); AST 113 U/L (14-36); African American GFR (CKD) 65 (>60 ml/min/1.73 sqM); Albumin 2.6 g/dL (3.5-5.0); Alkaline Phosphatase 297 U/L (38-126); Anion Gap 9 mmol/L; Blood Urea Nitrogen 26 mg/dL (7-17); Calcium 7.4 mg/dL (8.4-10.2); Carbon Dioxide 24 mmol/L (22-30); Chloride 94 mmol/L (98-107); Glucose 121 mg/dL (74-99); Magnesium 1.9 mg/dL (1.6-2.3); Non-African American GFR(CKD) 56 (>60 ml/min/1.73 sqM); Potassium 3.6 mmol/L (3.5-5.1); Sodium 127 mmol/L (137-145); Total Bilirubin 0.6 mg/dL (0.2-1.3); Total Protein 5.4 g/dL (6.3-8.2)
--- NOTE | 2024-05-13 10:45 | P.PN ---
Subjective Progress Note Date: 05/13/24 This is an 78-year-old female who is status post open reduction left total hip arthroplasty with revision to dual mobility liner. This is postoperative day #1 and patient is seen and evaluated at bedside today. Patient states that her pain is well-controlled this morning and she was able to get up to a chair with physical therapy today. Patient denies any new complaints today. Objective - Vital Signs Vital signs: Vital Signs Temp 98.3 F 05/13/24 08:42 Pulse 124 H 05/13/24 08:59 Resp 18 05/13/24 08:59 BP 108/56 05/13/24 08:42 Pulse Ox 94 L 05/13/24 08:42 FiO2 Intake & Output 05/12/24 05/13/24 05/13/24 18:59 06:59 18:59 Intake Total 1246.532 675.36 52.655 Output Total 800 400 Balance 446.532 275.36 52.655 Weight 56.699 kg 68 kg Intake: IV 900 630 Sodium Chloride 0.9% 1, 480 000 ml @ 60 mls/hr IV . [id number] MAGDY Rx#:[id number] Intake, IV Titration 346.532 45.36 52.655 Amount Diltiazem 125 mg In 250 Sodium Chloride 0.9% 100 ml @ 10 MG/HR 10 mls/hr IV .[id number] MAGDY Rx#: [id number] Heparin Sod,Pork in 0.45% 96.532 45.36 52.655 NaCl 25,000 unit In 0.45 % NaCl 1 250ml.bag @ 12 UNITS/KG/HR 6.804 mls/hr IV .Q24H MAGDY Rx#: [id number] Output: Urine 700 400 Uretheral (Gibson) 700 Estimated Blood Loss 100 Other: Voiding Method Indwelling Catheter Indwelling Catheter - Exam Vital signs are stable. Patient is in no acute distress and is alert and oriented 3. Calf is soft and nontender to palpation. Dressing is clean, dry, and intact. Patient has full foot and ankle motion without pain or difficulty. Sensation intact. Neurovascular status and circulatory status are intact. - Labs CBC & Chem 7: 05/13/24 09:05 05/13/24 09:05 Labs: Abnormal Lab Results - Last 24 Hours (Table) 05/13/24 05/13/24 05/13/24 Range/Units 01:52 09:05 09:05 RBC 2.64 L (3.80-5.40) m/uL Hgb 8.4 L (11.4-16.0) gm/dL Hct 25.7 L (34.0-46.0) % Lymphocytes # 0.6 L (1.0-4.8) k/uL APTT 32.2 H (22.0-30.0) sec Sodium 127 L (137-145) mmol/L Chloride 94 L (98-107) mmol/L BUN 26 H (7-17) mg/dL Glucose 121 H (74-99) mg/dL Calcium 7.4 L (8.4-10.2) mg/dL AST 113 H (14-36) U/L ALT 61 H (4-34) U/L Alkaline Phosphatase 297 H (38-126) U/L Total Protein 5.4 L (6.3-8.2) g/dL Albumin 2.6 L (3.5-5.0) g/dL 05/13/24 Range/Units 09:05 RBC (3.80-5.40) m/uL Hgb (11.4-16.0) gm/dL Hct (34.0-46.0) % Lymphocytes # (1.0-4.8) k/uL APTT 36.3 H (22.0-30.0) sec Sodium (137-145) mmol/L Chloride (98-107) mmol/L BUN (7-17) mg/dL Glucose (74-99) mg/dL Calcium (8.4-10.2) mg/dL AST (14-36) U/L ALT (4-34) U/L Alkaline Phosphatase (38-126) U/L Total Protein (6.3-8.2) g/dL Albumin (3.5-5.0) g/dL Assessment and Plan Assessment: Status post open reduction left total hip arthroplasty with revision to a dual mobility liner. (1) Dislocation of hip, left, closed Current Visit: Yes Status: Acute Code(s): S73.005A - UNSPECIFIED DISLOCATION OF LEFT HIP, INITIAL ENCOUNTER SNOMED Code(s): 504149067 (2) S/P total left hip arthroplasty Current Visit: Yes Status: Acute Code(s): Z96.642 - PRESENCE OF LEFT ARTIFICIAL HIP JOINT SNOMED Code(s): 559661403005 (3) Dislocation of internal left hip prosthesis Current Visit: Yes Status: Acute Code(s): T84.021A - DISLOCATION OF INTERNAL LEFT HIP PROSTHESIS, INIT ENCNTR SNOMED Code(s): 26472104045883735 Plan: Continue routine postop care and pain control. Continue anticoagulation per internal medicine. Weightbearing as tolerated with a walker. Leave dressing in place for 7 days. Appreciate input from internal medicine and cardiology. Anticipate discharge home with home care once cleared medically.
[2024-05-13] MEDS: DILTIAZEM ORAL 30 MG TAB PO SCH (13:03)
[2024-05-13] MEDS: APIXABAN 5 MG TAB PO SCH (13:03)
--- NOTE | 2024-05-13 13:34 | P.PN ---
Subjective HISTORY OF PRESENT ILLNESS: This is a 78-year-old female with a past medical history significant for hypertension, rheumatoid arthritis, and recent hip replacement. Patient follows in the office with Dr. Stallings. We have been asked to see the patient in consultation for atrial fibrillation with RVR. Patient examined at the bedside in the emergency room. Patient is status post left total hip arthroplasty on 05/07/[address] Guido. Patient states that she was at home using the bathroom. She states that she was sitting on the toilet and tried to get up and then she blacked out and woke up on the floor. She does report feeling dizzy p rior to this happening. She denied having any palpitations. Denied any chest pain or shortness of breath. The patient does report that she thinks her pain pills have been contributing to some of her symptoms recently. Patient presented to the emergency room for further evaluation. Patient was found to be in atrial fibrillation with RVR. Patient was started on IV heparin and IV Cardizem. She denies a known history of atrial fibrillation. She remains in atrial fibrillation at the time of examination with a heart rate in the 90s. Her IV Cardizem is infusing at 15 mg an hour. DIAGNOSTICS: - EKG reveals A-fib with RVR. - Laboratory data: WBC 9.5. Hemoglobin 9.3. Platelet count 251. Sodium 128. Potassium 3.9. BUN 25. Creatinine 1.04. Magnesium 2.0. Troponin 0.202. 0.249. 0.356. - Current home cardiac medications include amlodipine 5 mg at night, losartanhydrochlorothiazide 100-12.5 mg daily, metoprolol tartrate 50 mg daily. - Most recent echocardiogram obtained in January 2022 revealed ejection fraction 55%, mild concentric LVH, moderate pulmonary hypertension, mild right ventricular enlargement, aortic valve sclerosis - Patient underwent Lexiscan stress test in June 2023 which was negative for ischemia 05/13/2024 Patient examined this morning at the bedside. Patient is status post open reduction left total hip arthroplasty with revision with orthopedics. Postop day #1. Patient denies chest pain or pressure. She denies shortness of breath. Telemetry reveals atrial fibrillation with RVR. Patient remains on IV heparin. She is also on IV Cardizem at 10 mg an hour. Echocardiogram completed revealing ejection fraction 60 to 65%, severe pulmonary hypertension, trace to mild MR, mild aortic stenosis, mild to moderate tricuspid regurgitation. PHYSICAL EXAM: VITAL SIGNS: Reviewed. GENERAL: Well-developed in no acute distress. HEENT: Head is normocephalic. Pupils are equal, round. Sclerae anicteric. Mucous membranes of the mouth are moist. Neck supple. No JVD or thyromegaly LUNGS: Respirations even and unlabored. Lungs essentially clear to auscultation bilaterally. HEART: Irregular rate and rhythm. S1 and S2 heard. ABDOMEN: Soft. Nondistended. Nontender. EXTREMITIES: Normal range of motion. No clubbing or cyanosis. Peripheral pulses intact. No lower extremity edema NEUROLOGIC: Awake and alert. Oriented x 3. ASSESSMENT: Syncope New onset atrial fibrillation with RVR, exact duration unknown Elevated troponins, likely type II [place] secondary to oxygen supply/demand mismatch Hyponatremia Left hip dislocation Status post left total hip arthroplasty, 05/07/2024 Hypertension History of rheumatoid arthritis Moderate pulmonary hypertension PLAN: Discontinue IV heparin. Begin Eliquis 5 mg twice a day. Discontinue aspirin Discontinue amlodipine Discontinue losartan Increase metoprolol to tartrate to 75 mg twice a day Add oral Cardizem 30 mg 3 times daily Continue telemetry monitoring Further recommendations pending patient course Nurse practitioner note has been reviewed by physician. Signing provider agrees with the documented findings, assessment, and plan of care documented by [employer] MUSCLE NURSE as a scribe. Objective - Vital Signs Vital signs: Vital Signs Temp 98.3 F 05/13/24 08:42 Pulse 124 H 05/13/24 08:42 Resp 18 05/13/24 08:42 BP 108/56 05/13/24 08:42 Pulse Ox 94 L 05/13/24 08:42 FiO2 Intake & Output 05/12/24 05/13/24 05/13/24 18:59 06:59 18:59 Intake Total 1246.532 675.36 Output Total 800 400 Balance 446.532 275.36 Weight 56.699 kg 68 kg Intake: IV 900 630 Sodium Chloride 0.9% 1, 480 000 ml @ 60 mls/hr IV . [id number] [facility] Rx#:[id number] Intake, IV Titration 346.532 45.36 Amount Diltiazem 125 mg In 250 Sodium Chloride 0.9% 100 ml @ 10 MG/HR 10 mls/hr IV .[id number] [facility] Rx#: [id number] Heparin Sod,Pork in 0.45% 96.532 45.36 NaCl 25,000 unit In 0.45 % NaCl 1 250ml.bag @ 12 UNITS/KG/HR 6.804 mls/hr IV .Q24H [facility] Rx#: [id number] Output: Urine 700 400 Uretheral (Gibson) 700 Estimated Blood Loss 100 Other: Voiding Method Indwelling Catheter - Labs CBC & Chem 7: 05/13/24 09:05 05/13/24 09:05 Labs: Abnormal Lab Results - Last 24 Hours (Table) 05/12/24 05/12/24 05/13/24 Range/Units 06:49 06:49 01:52 RBC 2.88 L (3.80-5.40) m/uL Hgb 9.3 L (11.4-16.0) gm/dL Hct 29.2 L (34.0-46.0) % MCV 101.4 H (80.0-100.0) fL APTT 32.2 H (22.0-30.0) sec Sodium 128 L (137-145) mmol/L Chloride 92 L (98-107) mmol/L BUN 25 H (7-17) mg/dL Glucose 108 H (74-99) mg/dL AST 99 H (14-36) U/L ALT 77 H (4-34) U/L Alkaline Phosphatase 297 H (38-126) U/L Total Protein 6.1 L (6.3-8.2) g/dL Albumin 3.1 L (3.5-5.0) g/dL
--- NOTE | 2024-05-13 16:58 | P.PN ---
Subjective Progress Note Date: 05/13/24 Hospital course: Patient is a very pleasant 78-year-old female with a past medical history of hypertension, breast cancer status post lumpectomy, Sjogren's disease, and recent left total hip arthroplasty on 05/07/[address] Melendez. She presented to the emergency department secondary to fall/syncopal episode. Patient reports she got up to use the restroom and upon standing became dizzy/lightheaded resulting in her blacking out/syncopal episode falling to the floor onto her left hip. She denies having any headache, changes in vision or hearing, chest pain, palpitations, shortness of breath, cognitive complaints. Patient reports severe pain left hip and lower extremity and is stated above admits to dizziness/lightheadedness prior to syncopal episode/fall. Upon arrival to our facility, patient underwent evaluation in the emergency department. X-ray left hip was completed revealing a dislocation of the femoral prosthesis from the acetabular component with no acute fractures. Vital signs upon arrival show blood pressure 107/67, heart rate 61, respiratory rate 18, temp 98.4 F, and SpO2 of 98% on room air. Shortly after arrival patient was found to be tachycardic with heart rate in 150s. EKG was completed showing atrial fibrillation with RVR at 159 bpm with T wave inversion in inferior lateral leads I, II, III, aVL, aVF, and V4 through V6. CT brain was negative for acute intracranial process showing chronic appearing periventricular white matter ischemic changes. Labs were completed and reviewed. CBC showing normocytic anemia with hemoglobin of 10.1. BMP showing mild hyponatremia with sodium of 130, chloride of 90, BUN 30, creatinine 1.06, and GFR 50. Blood glucose was 143. Liver profile showing slightly elevated AST of 46 otherwise normal findings. Troponin was elevated at 0.202 trended resulting at 0.202, 0.249, and 0.356. Patient was started on Cardizem infusion and heparin infusion. She was admitted to orthopedic surgery team and we were consulted for medical clearance followed by medical management throughout hospitalization. Cardiology was consulted secondary to new onset atrial fibrillation with RVR and syncope. Physical exam: Patient seen and fully evaluated at bedside this morning. She was sitting up in the chair visiting with her at bedside. She reports mild to moderate postoperative pain left hip is denies any complaints. She continues to deny having headache, lightheadedness, dizziness, chest pain, palpitations, shortness of or experiencing any numbness/tingling/weakness in her extremities. Vital signs reviewed and stable. General: Nontoxic, no distress and appears stated age. Derm: Skin warm and dry, normal coloration for ethnicity. Head: Atraumatic, normocephalic and symmetric. Eyes: EOM's intact, no lid lag, and anicteric sclera Mouth: no lip lesions, mucus membranes moist Cardiovascular: Irregularly irregular with normal S1S2, no murmur, positive posterior tibial pulses bilaterally, and cap refill < 2 seconds. Lungs: Respirations even, regular, and unlabored on room air. Lungs CTA bilaterally, no rhonchi, no rales, no wheezing, and no accessory muscle usage. Abdominal: soft, nontender to palpation, no guarding, no appreciable organomegaly Ext:. No gross muscle atrophy, no edema, no contractures. Movement and sensation intact. Neuro: Speech clear, face symmetrical and CN II-XII grossly intact with no noted focal neuro deficits Psych: Alert and oriented to person, place, time, and situation. Appropriate and pleasant affect. Assessment and Plan of Care: New onset atrial fibrillation with RVR NSTEMI, likely type II secondary to RVR Syncopal episode Microcytic anemia Transaminitis, likely reactive secondary to above Hyponatremia Hypertension -Cardiology following, discontinued heparin starting patient on Eliquis 5 mg twice daily and discontinuing aspirin, amlodipine, and losartan and increase met oprolol to tartrate to 75 mg twice daily. -Echocardiogram completed showing a preserved EF of 60 to 65% with thickened mitral valve apparatus with moderate mitral stenosis and severe pulmonary hypertension, aortic sclerosis with mild stenosis. -Patient was weaned off of Cardizem infusion and started on oral Cardizem 30 mg 3 times daily. -Telemetry monitoring. -Continue close monitoring of sodium level, hemoglobin, and liver enzymes with repeat a.m. labs. Additional orders may be placed pending these results. Dislocation of the femoral prosthesis from the acetabular component, status post open reduction of left total hip arthroplasty with revision to dual mobility liner Status post recent left total hip arthroplasty on 05/07/2024 -Management per primary admitting orthopedic surgery team including pain management, advancement of activity, weightbearing, and PT/OT. History of breast cancer -Patient is status postlumpectomy, recommend continuation of yearly cancer screenings. Data and imaging reviewed: Echocardiogram completed showing a preserved EF of 60 to 65% with thickened mitral valve apparatus with moderate mitral stenosis and severe pulmonary hyper tension, aortic sclerosis with mild stenosis. Vital signs reviewed. Blood pressure 108/56, heart rate 124, respiratory rate 18, temp 98.3 F, and SpO2 of 94% on 2 L. Morning labs reviewed. CBC showing acute on chronic normocytic anemia with hemoglobin of 8.4. BMP showing sodium 127, chloride 94, BUN 26 blood glucose 121. Magnesium 1.9. TSH was normal findings at 0.615. Thank you for allowing us to participate in the care of this pleasant patient. Do not hesitate to contact us with questions. Someone can be reached from the [facility] hospitalist group all hours of the day at [phone] or via [employer]. Patient was seen independently by Nurse Practitioner. This document was prepared using [employer] dictation software. Please allow for errors in auto locator while rare they do occur. Anival Escalante NP rendered care for this patient independently, reviewed the findin gs and plan as documented in the note above and agree with plan. I did not physically speak with or examine the patient on this date. Objective - Vital Signs Vital signs: Vital Signs Temp 98.3 F 05/13/24 08:42 Pulse 124 H 05/13/24 08:42 Resp 18 05/13/24 08:42 BP 108/56 05/13/24 08:42 Pulse Ox 94 L 05/13/24 08:42 FiO2 Intake & Output 05/12/24 05/13/24 05/13/24 18:59 06:59 18:59 Intake Total 1246.532 675.36 Output Total 800 400 Balance 446.532 275.36 Weight 56.699 kg 68 kg Intake: IV 900 630 Sodium Chloride 0.9% 1, 480 000 ml @ 60 mls/hr IV . [id number] [facility] Rx#:[id number] Intake, IV Titration 346.532 45.36 Amount Diltiazem 125 mg In 250 Sodium Chloride 0.9% 100 ml @ 10 MG/HR 10 mls/hr IV .[id number] [facility] Rx#: [id number] Heparin Sod,Pork in 0.45% 96.532 45.36 NaCl 25,000 unit In 0.45 % NaCl 1 250ml.bag @ 12 UNITS/KG/HR 6.804 mls/hr IV .Q24H [facility] Rx#: [id number] Output: Urine 700 400 Uretheral (Gibson) 700 Estimated Blood Loss 100 Other: Voiding Method Indwelling Catheter - Labs CBC & Chem 7: 05/13/24 09:05 05/13/24 09:05 Labs: Abnormal Lab Results - Last 24 Hours (Table) 05/12/24 05/12/24 05/13/24 Range/Units 06:49 06:49 01:52 RBC 2.88 L (3.80-5.40) m/uL Hgb 9.3 L (11.4-16.0) gm/dL Hct 29.2 L (34.0-46.0) % MCV 101.4 H (80.0-100.0) fL APTT 32.2 H (22.0-30.0) sec Sodium 128 L (137-145) mmol/L Chloride 92 L (98-107) mmol/L BUN 25 H (7-17) mg/dL Glucose 108 H (74-99) mg/dL AST 99 H (14-36) U/L ALT 77 H (4-34) U/L Alkaline Phosphatase 297 H (38-126) U/L Total Protein 6.1 L (6.3-8.2) g/dL Albumin 3.1 L (3.5-5.0) g/dL
[2024-05-13] MEDS: METOPROLOL TARTRATE 50 MG TAB PO SCH (20:25)
[2024-05-14 06:21] LABS: HGB 8.1 gm/dL (11.4-16.0); MCH 33.4 pg (25.0-35.0); MCHC 33.9 g/dL (31.0-37.0); MCV 98.7 fL (80.0-100.0); Mean Platelet Volume 6.9; Platelet Count 362 k/uL (150-450); RBC 2.43 m/uL (3.80-5.40); RDW 12.8 % (11.5-15.5); WBC 8.3 k/uL (3.8-10.6)
[2024-05-14 06:52] LABS: ALT 29 U/L (4-34); AST 52 U/L (14-36); African American GFR (CKD) 69 (>60 ml/min/1.73 sqM); Albumin 2.4 g/dL (3.5-5.0); Alkaline Phosphatase 223 U/L (38-126); Anion Gap 6 mmol/L; Blood Urea Nitrogen 22 mg/dL (7-17); Calcium 7.3 mg/dL (8.4-10.2); Carbon Dioxide 24 mmol/L (22-30); Chloride 96 mmol/L (98-107); Glucose 94 mg/dL (74-99); Non-African American GFR(CKD) 60 (>60 ml/min/1.73 sqM); Potassium 3.6 mmol/L (3.5-5.1); Sodium 126 mmol/L (137-145); Total Bilirubin 0.5 mg/dL (0.2-1.3); Total Protein 4.9 g/dL (6.3-8.2)
[2024-05-14] MEDS ORDERED: LOSARTAN 25 MG TAB PO SCH (09:00)
[2024-05-14 09:03] LABS: NT-Pro-B-Type Natriuretic Pept 5070 pg/mL
[2024-05-14] MEDS: DILTIAZEM ORAL 30 MG TAB PO STA (10:18)
--- NOTE | 2024-05-14 11:30 | P.PN ---
Subjective HISTORY OF PRESENT ILLNESS: This is a 78-year-old female with a past medical history significant for hypertension, rheumatoid arthritis, and recent hip replacement. Patient follows in the office with Dr. Stallings. We have been asked to see the patient in consultation for atrial fibrillation with RVR. Patient examined at the bedside in the emergency room. Patient is status post left total hip arthroplasty on 05/07/[address] Guido. Patient states that she was at home using the bathroom. She states that she was sitting on the toilet and tried to get up and then she blacked out and woke up on the floor. She does report feeling dizzy p rior to this happening. She denied having any palpitations. Denied any chest pain or shortness of breath. The patient does report that she thinks her pain pills have been contributing to some of her symptoms recently. Patient presented to the emergency room for further evaluation. Patient was found to be in atrial fibrillation with RVR. Patient was started on IV heparin and IV Cardizem. She denies a known history of atrial fibrillation. She remains in atrial fibrillation at the time of examination with a heart rate in the 90s. Her IV Cardizem is infusing at 15 mg an hour. DIAGNOSTICS: - EKG reveals A-fib with RVR. - Laboratory data: WBC 9.5. Hemoglobin 9.3. Platelet count 251. Sodium 128. Potassium 3.9. BUN 25. Creatinine 1.04. Magnesium 2.0. Troponin 0.202. 0.249. 0.356. - Current home cardiac medications include amlodipine 5 mg at night, losartanhydrochlorothiazide 100-12.5 mg daily, metoprolol tartrate 50 mg daily. - Most recent echocardiogram obtained in January 2022 revealed ejection fraction 55%, mild concentric LVH, moderate pulmonary hypertension, mild right ventricular enlargement, aortic valve sclerosis - Patient underwent Lexiscan stress test in June 2023 which was negative for ischemia 05/13/2024 Patient examined this morning at the bedside. Patient is status post open reduction left total hip arthroplasty with revision with orthopedics. Postop day #1. Patient denies chest pain or pressure. She denies shortness of breath. Telemetry reveals atrial fibrillation with RVR. Patient remains on IV heparin. She is also on IV Cardizem at 10 mg an hour. Echocardiogram completed revealing ejection fraction 60 to 65%, severe pulmonary hypertension, trace to mild MR, mild aortic stenosis, mild to moderate tricuspid regurgitation. 05/14/2024 Patient examined this morning the bedside. Patient currently denies chest pain or pressure. She denies shortness of breath. Telemetry reveals atrial fibrillation with heart rate between . Blood pressure stable. Patient states she has not been out of bed yet this morning. PHYSICAL EXAM: VITAL SIGNS: Reviewed. GENERAL: Well-developed in no acute distress. HEENT: Head is normocephalic. Pupils are equal, round. Sclerae anicteric. Mucous membranes of the mouth are moist. Neck supple. No JVD or thyromegaly LUNGS: Respirations even and unlabored. Lungs essentially clear to auscultation bilaterally. HEART: Tachycardic. Irregular rate and rhythm. S1 and S2 heard. ABDOMEN: Soft. Nondistended. Nontender. EXTREMITIES: Normal range of motion. No clubbing or cyanosis. Peripheral puls es intact. No lower extremity edema NEUROLOGIC: Awake and alert. Oriented x 3. ASSESSMENT: Syncope New onset atrial fibrillation with RVR, exact duration unknown Elevated troponins, likely type II [place] secondary to oxygen supply/demand mismatch Hyponatremia Left hip dislocation Status post left total hip arthroplasty, 05/07/2024 Hypertension History of rheumatoid arthritis Moderate pulmonary hypertension PLAN: Continue anticoagulation with Eliquis Continue current dose of metoprolol 75 mg twice a day Increase oral Cardizem to 60 mg 3 times a day Continue telemetry monitoring Increase activity as tolerated. Patient needs to be OOB today. Discontinue Gibson catheter Further recommendations pending patient course Nurse practitioner note has been reviewed by physician. Signing provider agrees with the documented findings, assessment, and plan of care documented by TODDLER NANNY as a scribe. Objective - Vital Signs Vital signs: Vital Signs Temp 98.1 F 05/14/24 08:15 Pulse 129 H 05/14/24 08:15 Resp 17 05/14/24 08:15 BP 113/56 05/14/24 08:15 Pulse Ox 95 05/14/24 08:15 FiO2 Intake & Output 05/13/24 05/14/24 05/14/24 18:59 06:59 18:59 Intake Total 52.655 480 Output Total 650 1000 Balance -597.345 -520 Weight 68 kg Intake: IV 480 Sodium Chloride 0.9% 1, 480 000 ml @ 60 mls/hr IV . [id number] [facility] Rx#:[id number] Intake, IV Titration 52.655 Amount Heparin Sod,Pork in 0.45% 52.655 NaCl 25,000 unit In 0.45 % NaCl 1 250ml.bag @ 12 UNITS/KG/HR 6.804 mls/hr IV .Q24H [facility] Rx#: [id number] Output: Urine 650 1000 Other: Voiding Method Indwelling Catheter Indwelling Catheter Indwelling Catheter - Labs CBC & Chem 7: 05/14/24 05:20 05/14/24 05:20 Labs: Abnormal Lab Results - Last 24 Hours (Table) 05/14/24 05/14/24 Range/Units 05:20 05:20 RBC 2.43 L (3.80-5.40) m/uL Hgb 8.1 L (11.4-16.0) gm/dL Hct 24.0 L (34.0-46.0) % Sodium 126 L (137-145) mmol/L Chloride 96 L (98-107) mmol/L BUN 22 H (7-17) mg/dL Calcium 7.3 L (8.4-10.2) mg/dL AST 52 H (14-36) U/L Alkaline Phosphatase 223 H (38-126) U/L Total Protein 4.9 L (6.3-8.2) g/dL Albumin 2.4 L (3.5-5.0) g/dL
--- NOTE | 2024-05-14 11:58 | P.PN ---
Subjective Progress Note Date: 05/14/24 This is an 78-year-old female who is status post open reduction left total hip arthroplasty with revision to dual mobility liner. This is postoperative day #2 and patient is seen and evaluated at bedside today. Patient states that her pain is well-controlled this morning and she was able to get up to a chair with physical therapy today. Patient denies any new complaints today. Objective - Vital Signs Vital signs: Vital Signs Temp 98.4 F 05/14/24 11:56 Pulse 118 H 05/14/24 11:56 Resp 17 05/14/24 11:56 BP 133/55 05/14/24 11:56 Pulse Ox 97 05/14/24 11:56 FiO2 Intake & Output 05/13/24 05/14/24 05/14/24 18:59 06:59 18:59 Intake Total 52.655 480 Output Total 650 1000 Balance -597.345 -520 Weight 68 kg Intake: IV 480 Sodium Chloride 0.9% 1, 480 000 ml @ 60 mls/hr IV . [id number] [facility] Rx#:[id number] Intake, IV Titration 52.655 Amount Heparin Sod,Pork in 0.45% 52.655 NaCl 25,000 unit In 0.45 % NaCl 1 250ml.bag @ 12 UNITS/KG/HR 6.804 mls/hr IV .Q24H [facility] Rx#: [id number] Output: Urine 650 1000 Other: Voiding Method Indwelling Catheter Indwelling Catheter Indwelling Catheter - Exam Vital signs are stable. Patient is in no acute distress and is alert and oriented 3. Calf is soft and nontender to palpation. Dressing is clean, dry, and intact. Patient has full foot and ankle motion without pain or difficulty. Sensation intact. Neurovascular status and circulatory status are intact. - Labs CBC & Chem 7: 05/14/24 05:20 05/14/24 05:20 Labs: Abnormal Lab Results - Last 24 Hours (Table) 05/14/24 05/14/24 Range/Units 05:20 05:20 RBC 2.43 L (3.80-5.40) m/uL Hgb 8.1 L (11.4-16.0) gm/dL Hct 24.0 L (34.0-46.0) % Sodium 126 L (137-145) mmol/L Chloride 96 L (98-107) mmol/L BUN 22 H (7-17) mg/dL Calcium 7.3 L (8.4-10.2) mg/dL AST 52 H (14-36) U/L Alkaline Phosphatase 223 H (38-126) U/L Total Protein 4.9 L (6.3-8.2) g/dL Albumin 2.4 L (3.5-5.0) g/dL Assessment and Plan Assessment: Status post open reduction left total hip arthroplasty with revision to a dual mobility liner. (1) Dislocation of hip, left, closed Current Visit: Yes Status: Acute Code(s): S73.005A - UNSPECIFIED DISLOCATION OF LEFT HIP, INITIAL ENCOUNTER SNOMED Code(s): 093511732 (2) S/P total left hip arthroplasty Current Visit: Yes Status: Acute Code(s): Z96.642 - PRESENCE OF LEFT ARTIFICIAL HIP JOINT SNOMED Code(s): 789634511941 (3) Dislocation of internal left hip prosthesis Current Visit: Yes Status: Acute Code(s): T84.021A - DISLOCATION OF INTERNAL LEFT HIP PROSTHESIS, INIT ENCNTR SNOMED Code(s): 51195534557249371 Plan: Continue routine postop care and pain control. Continue anticoagulation per internal medicine. Weightbearing as tolerated with a walker. Leave dressing in place for 7 days. Appreciate input from internal medicine and cardiology. Anticipate discharge home with home care once cleared medically.
[2024-05-14] MEDS: METOPROLOL TARTRATE 50 MG TAB PO STA (13:47)
--- NOTE | 2024-05-14 15:37 | P.PN ---
Subjective Progress Note Date: 05/14/24 Hospital course: Patient is a very pleasant 78-year-old female with a past medical history of hypertension, breast cancer status post lumpectomy, Sjogren's disease, and recent left total hip arthroplasty on 05/07/[address] Melendez. She presented to the emergency department secondary to fall/syncopal episode. Patient reports she got up to use the restroom and upon standing became dizzy/lightheaded resulting in her blacking out/syncopal episode falling to the floor onto her left hip. She denies having any headache, changes in vision or hearing, chest pain, palpitations, shortness of breath, cognitive complaints. Patient reports severe pain left hip and lower extremity and is stated above admits to dizziness/lightheadedness prior to syncopal episode/fall. Upon arrival to our facility, patient underwent evaluation in the emergency department. X-ray left hip was completed revealing a dislocation of the femoral prosthesis from the acetabular component with no acute fractures. Vital signs upon arrival show blood pressure 107/67, heart rate 61, respiratory rate 18, temp 98.4 F, and SpO2 of 98% on room air. Shortly after arrival patient was found to be tachycardic with heart rate in 150s. EKG was completed showing atrial fibrillation with RVR at 159 bpm with T wave inversion in inferior lateral leads I, II, III, aVL, aVF, and V4 through V6. CT brain was negative for acute intracranial process showing chronic appearing periventricular white matter ischemic changes. Labs were completed and reviewed. CBC showing normocytic anemia with hemoglobin of 10.1. BMP showing mild hyponatremia with sodium of 130, chloride of 90, BUN 30, creatinine 1.06, and GFR 50. Blood glucose was 143. Liver profile showing slightly elevated AST of 46 otherwise normal findings. Troponin was elevated at 0.202 trended resulting at 0.202, 0.249, and 0.356. Patient was started on Cardizem infusion and heparin infusion. She was admitted to orthopedic surgery team and we were consulted for medical clearance followed by medical management throughout hospitalization. Cardiology was consulted secondary to new onset atrial fibrillation with RVR and syncope. Physical exam: Patient seen and fully evaluated at bedside this morning. She was sitting up in the chair visiting with at bedside. Patient reports she is feeling better than yesterday but still having a difficult time with ambulation. Patient remains in atrial fibrillation with rapid ventricular rate 120s. She continues to deny having any chest pain, palpitations, or shortness of breath this time. Vital signs reviewed and stable. General: Nontoxic, no distress and appears stated age. Derm: Skin warm and dry, normal coloration for ethnicity. Head: Atraumatic, normocephalic and symmetric. Eyes: EOM's intact, no lid lag, and anicteric sclera Mouth: no lip lesions, mucus membranes moist Cardiovascular: Irregularly irregular with normal S1S2, no murmur, positive posterior tibial pulses bilaterally, and cap refill < 2 seconds. Lungs: Respirations even, regular, and unlabored on room air. Lungs CTA sona aterally, no rhonchi, no rales, no wheezing, and no accessory muscle usage. Abdominal: soft, nontender to palpation, no guarding, no appreciable organomegaly Ext:. No gross muscle atrophy, no edema, no contractures. Movement and sensation intact. Neuro: Speech clear, face symmetrical and CN II-XII grossly intact with no noted focal neuro deficits Psych: Alert and oriented to person, place, time, and situation. Appropriate and pleasant affect. Assessment and Plan of Care: New onset atrial fibrillation with RVR NSTEMI, likely type II secondary to RVR Syncopal episode Microcytic anemia Transaminitis, likely reactive secondary to above and improving Hyponatremia Hypertension -Cardiology following, discussed plan of care with cardiac HEADING UP MACHINE OPERATOR. Cardizem to be increased to 60 mg 3 times daily. -Continue Cardizem 60 mg 3 times daily, Eliquis 5 mg twice daily, and metoprolol 75 mg twice daily -Echocardiogram completed showing a preserved EF of 60 to 65% with thickened mitral valve apparatus with moderate mitral stenosis and severe pulmonary hypertension, aortic sclerosis with mild stenosis.. -Telemetry monitoring. -Continue close monitoring of sodium level, hemoglobin, and liver enzymes with repeat a.m. labs. Additional orders may be placed pending these results. -Patient has been receiving normal saline at 60 cc/h, however sodium slightly worsening to 126 this morning. TSH was normal findings order placed for proBNP, osmolality, and serum osmolality. Additional orders to be placed based upon results. Dislocation of the femoral prosthesis from the acetabular component, status post open reduction of left total hip arthroplasty with revision to dual mobility liner Status post recent left total hip arthroplasty on 05/07/2024 -Management per primary admitting orthopedic surgery team including pain management, advancement of activity, weightbearing, and PT/OT. History of breast cancer -Patient is status post lumpectomy, recommend continuation of age-appropriate yearly cancer screenings. Data and imaging reviewed: Echocardiogram completed showing a preserved EF of 60 to 65% with thickened mitral valve apparatus with moderate mitral stenosis and severe pulmonary hypertension, aortic sclerosis with mild stenosis. Vital signs reviewed. Blood pressure 113/56, heart rate 129, respiratory rate 17, temp 98.1 F, and SpO2 of 95% on room air. Morning labs reviewed. CBC showing stable anemia with hemoglobin of 8.1. BMP showing sodium of 126, chloride 96, and anion gap of 22. Blood glucose is 94. Calcium 7.3 but corrected calcium of 8.6 with albumin of 2.4. Thank you for allowing us to participate in the care of this pleasant patient. Do not hesitate to contact us with questions. Someone can be reached from the [facility] all hours of the day at [phone] or via [employer]. Patient was seen independently by Nurse Practitioner. This document was prepared using [employer] dictation software. Please allow for errors in dealership general manager while rare they do occur. Anival Escalante NP rendered care for this patient independently, reviewed the findings and plan as documented in the note above and agree with plan. I did not physically speak with or examine the patient on this date. Objective - Vital Signs Vital signs: Vital Signs Temp 98.2 F 05/14/24 04:00 Pulse 137 H 05/14/24 04:00 Resp 16 05/14/24 04:00 BP 126/61 05/14/24 04:00 Pulse Ox 95 05/14/24 04:00 FiO2 Intake & Output 05/13/24 05/14/24 05/14/24 18:59 06:59 18:59 Intake Total 52.655 480 Output Total 650 1000 Balance -597.345 -520 Weight 68 kg Intake: IV 480 Sodium Chloride 0.9% 1, 480 000 ml @ 60 mls/hr IV . [id number] [facility] Rx#:[id number] Intake, IV Titration 52.655 Amount Heparin Sod,Pork in 0.45% 52.655 NaCl 25,000 unit In 0.45 % NaCl 1 250ml.bag @ 12 UNITS/KG/HR 6.804 mls/hr IV .Q24H [facility] Rx#: [id number] Output: Urine 650 1000 Other: Voiding Method Indwelling Catheter Indwelling Catheter - Labs CBC & Chem 7: 05/14/24 05:20 05/14/24 05:20 Labs: Abnormal Lab Results - Last 24 Hours (Table) 05/13/24 05/13/24 05/13/24 Range/Units 09:05 09:05 09:05 RBC 2.64 L (3.80-5.40) m/uL Hgb 8.4 L (11.4-16.0) gm/dL Hct 25.7 L (34.0-46.0) % Lymphocytes # 0.6 L (1.0-4.8) k/uL APTT 36.3 H (22.0-30.0) sec Sodium 127 L (137-145) mmol/L Chloride 94 L (98-107) mmol/L BUN 26 H (7-17) mg/dL Glucose 121 H (74-99) mg/dL Calcium 7.4 L (8.4-10.2) mg/dL AST 113 H (14-36) U/L ALT 61 H (4-34) U/L Alkaline Phosphatase 297 H (38-126) U/L Total Protein 5.4 L (6.3-8.2) g/dL Albumin 2.6 L (3.5-5.0) g/dL 05/14/24 05/14/24 Range/Units 05:20 05:20 RBC 2.43 L (3.80-5.40) m/uL Hgb 8.1 L (11.4-16.0) gm/dL Hct 24.0 L (34.0-46.0) % Lymphocytes # (1.0-4.8) k/uL APTT (22.0-30.0) sec Sodium 126 L (137-145) mmol/L Chloride 96 L (98-107) mmol/L BUN 22 H (7-17) mg/dL Glucose (74-99) mg/dL Calcium 7.3 L (8.4-10.2) mg/dL AST 52 H (14-36) U/L ALT (4-34) U/L Alkaline Phosphatase 223 H (38-126) U/L Total Protein 4.9 L (6.3-8.2) g/dL Albumin 2.4 L (3.5-5.0) g/dL
[2024-05-14] MEDS: FUROSEMIDE 10 MG/ML 2 ML VIAL IV ONE (16:34)
[2024-05-14] MEDS: DILTIAZEM ORAL 30 MG TAB PO SCH (16:34)
--- NOTE | 2024-05-14 18:36 | CDI ---
Documentation Clarification Form Date: 05/14/2024 05:54:23 PM From: Donna Cristina RN, CCDS Phone: [phone] Admit Date: 05/11/2024 04:58:00 PM Patient Name: Marta Merritt Visit Number: [id number] Discharge Date: ATTENTION: The Clinical Documentation Specialists (CDI) and [facility] Coding Staff appreciate your assistance in clarifying documentation. Please respond to the clarification below the line at the bottom and electronically sign. The CDI & [facility] Coding staff will review the response and follow-up if needed. Please note: Queries are made part of the Legal Health Record. If you have any questions, please contact the author of this message via ITS. Provider: Letitia Barroso Syncope is documented in the Cardiology consult and ongoing progress notes. Additional clarification regarding the etiology of the syncope is requested. History/risk factors: Cancer, Hypertension, rheumatoid arthritis, Clinical Indicators: 78-year-old female says she was sitting on the toilet and tried to get up and then she blacked out and woke up on the floor. Report felling dizzy prior. Reports that her she thinks her pain pills have been contributing to some of her symptoms recently. Labs: WBC 9.5, HGB 9.3, PLT 251, NA+128, K+ 3.9 BUN 25, Cr 1.04 MG+ 2.0. Troponin 0.202, 0.249. 0.356. CT Head: No acute intracranial process. Chronic appearing periventricular white matter ischemic-type changes 05/11 VS: (18:00) 107 158 18 92% RA 05/12 Echocardiogram: Left ventricular ejection fraction is estimated at 60-65 %. Severe pulmonary hypertension. 05/11 EKG: reveals A-fib with RVR at 159 BPM Treatment: Grain Operations Manager /Telemetry IV Heparin per orders IV Cardizem per orders Losartan 50 MG PO Daily, Metoprolol Tartrate 75 MG PO BID Please clarify the etiology of syncope, if known: [ ] Orthostatic Hypotension due to/type [ ] Arrhythmia, specify type [ ] Vasovagal [ ] Possible due to pain medication taken at home [ ] Other, please specify [ xx] Unable to determine (Template Last Revised: May 2020) MTDD
[2024-05-15 07:23] LABS: Basophils % (A) 0 %; Eosinophils % (A) 1 %; HCT 25.9 % (34.0-46.0); HGB 8.3 gm/dL (11.4-16.0); Hypochromasia Slight; Lymphocytes % (A) 10 %; MCH 31.6 pg (25.0-35.0); MCHC 32.2 g/dL (31.0-37.0); MCV 98.3 fL (80.0-100.0); Mean Platelet Volume 6.9; Monocytes # (A) 0.6 k/uL (0-1.0); Monocytes % (A) 7 %; Neutrophils # (A) 7.5 k/uL (1.3-7.7); Neutrophils % (A) 81 %; Platelet Count 478 k/uL (150-450); RBC 2.64 m/uL (3.80-5.40); RDW 12.8 % (11.5-15.5); WBC 9.3 k/uL (3.8-10.6)
[2024-05-15 07:42] LABS: ALT 26 U/L (4-34); AST 43 U/L (14-36); African American GFR (CKD) 71 (>60 ml/min/1.73 sqM); Albumin 2.6 g/dL (3.5-5.0); Alkaline Phosphatase 195 U/L (38-126); Anion Gap 9 mmol/L; Blood Urea Nitrogen 25 mg/dL (7-17); Calcium 7.6 mg/dL (8.4-10.2); Carbon Dioxide 25 mmol/L (22-30); Chloride 93 mmol/L (98-107); Glucose 100 mg/dL (74-99); Magnesium 1.9 mg/dL (1.6-2.3); Non-African American GFR(CKD) 61 (>60 ml/min/1.73 sqM); Potassium 3.7 mmol/L (3.5-5.1); Sodium 127 mmol/L (137-145); Total Bilirubin 0.7 mg/dL (0.2-1.3); Total Protein 5.4 g/dL (6.3-8.2)
--- NOTE | 2024-05-15 08:27 | P.PN ---
Subjective Progress Note Date: 05/15/24 Principal diagnosis: Left hip dislocation. Status post revision total left hip arthroplasty. Recent SC. Atrial fibrillation. This is an 78-year-old female who is status post open reduction left total hip arthroplasty with revision to dual mobility liner. This is postoperative day #3 and patient is seen and evaluated at bedside today. Patient states that her pain is well-controlled this morning and she was able to get up to a chair with physical therapy today. Patient denies any new complaints today. She states that she feels her heart fluttering. Her heart rate was up through the night but is improving. Objective - Vital Signs Vital signs: Vital Signs Temp 98.1 F 05/14/24 20:00 Pulse 108 H 05/15/24 03:10 Resp 16 05/15/24 03:10 BP 142/72 05/15/24 03:10 Pulse Ox 99 05/15/24 03:10 FiO2 Intake & Output 05/14/24 05/15/24 05/15/24 18:59 06:59 18:59 Intake Total 480 540 Output Total 500 1 Balance -20 539 Weight 68 kg Intake: Oral 480 540 Output: Urine 500 1 Other: Voiding Method Bedside Commode Bedside Commode # Voids 2 - Exam This is a pleasant 78-year-old female in no acute distress. She is alert and oriented x 3. Exam of the left hip reveals that her dressing is clean, dry and intact. There is minimal soft tissue swelling. No erythema or ecchymosis. She has full foot and ankle motion bilaterally. Neurovascular status to the lower extremities is intact. - Labs CBC & Chem 7: 05/15/24 05:44 05/15/24 05:44 Labs: Abnormal Lab Results - Last 24 Hours (Table) 05/14/24 05/15/24 05/15/24 Range/Units 05:20 05:44 05:44 RBC 2.64 L (3.80-5.40) m/uL Hgb 8.3 L (11.4-16.0) gm/dL Hct 25.9 L (34.0-46.0) % Plt Count 478 H (150-450) k/uL Sodium 127 L (137-145) mmol/L Chloride 93 L (98-107) mmol/L BUN 25 H (7-17) mg/dL Glucose 100 H (74-99) mg/dL Osmolality 269 L (275-295) mOsm/kg Calcium 7.6 L (8.4-10.2) mg/dL AST 43 H (14-36) U/L Alkaline Phosphatase 195 H (38-126) U/L Total Protein 5.4 L (6.3-8.2) g/dL Albumin 2.6 L (3.5-5.0) g/dL Assessment and Plan (1) Atrial fibrillation Current Visit: Yes Status: Acute Code(s): I48.91 - UNSPECIFIED ATRIAL FIBRILLATION SNOMED Code(s): 71488800 (2) Dislocation of hip, left, closed Current Visit: Yes Status: Acute Code(s): S73.005A - UNSPECIFIED DISLOCATION OF LEFT HIP, INITIAL ENCOUNTER SNOMED Code(s): 631271318 (3) S/P total left hip arthroplasty Current Visit: Yes Status: Acute Code(s): Z96.642 - PRESENCE OF LEFT ARTIFICIAL HIP JOINT SNOMED Code(s): 094584445172 Plan: The clinical findings are discussed with the patient. She may be discharged to home when cleared with internal medicine and cardiology. We will continue to follow until discharge.
[2024-05-15] MEDS: METOPROLOL TARTRATE 50 MG TAB PO SCH (08:55)
--- NOTE | 2024-05-15 10:05 | P.PN ---
Subjective HISTORY OF PRESENT ILLNESS: This is a 78-year-old female with a past medical history significant for hypertension, rheumatoid arthritis, and recent hip replacement. Patient follows in the office with Dr. Stallings. We have been asked to see the patient in consultation for atrial fibrillation with RVR. Patient examined at the bedside in the emergency room. Patient is status post left total hip arthroplasty on 05/07/[address] Guido. Patient states that she was at home using the bathroom. She states that she was sitting on the toilet and tried to get up and then she blacked out and woke up on the floor. She does report feeling dizzy p rior to this happening. She denied having any palpitations. Denied any chest pain or shortness of breath. The patient does report that she thinks her pain pills have been contributing to some of her symptoms recently. Patient presented to the emergency room for further evaluation. Patient was found to be in atrial fibrillation with RVR. Patient was started on IV heparin and IV Cardizem. She denies a known history of atrial fibrillation. She remains in atrial fibrillation at the time of examination with a heart rate in the 90s. Her IV Cardizem is infusing at 15 mg an hour. DIAGNOSTICS: - EKG reveals A-fib with RVR. - Laboratory data: WBC 9.5. Hemoglobin 9.3. Platelet count 251. Sodium 128. Potassium 3.9. BUN 25. Creatinine 1.04. Magnesium 2.0. Troponin 0.202. 0.249. 0.356. - Current home cardiac medications include amlodipine 5 mg at night, losartanhydrochlorothiazide 100-12.5 mg daily, metoprolol tartrate 50 mg daily. - Most recent echocardiogram obtained in January 2022 revealed ejection fraction 55%, mild concentric LVH, moderate pulmonary hypertension, mild right ventricular enlargement, aortic valve sclerosis - Patient underwent Lexiscan stress test in June 2023 which was negative for ischemia 05/13/2024 Patient examined this morning at the bedside. Patient is status post open reduction left total hip arthroplasty with revision with orthopedics. Postop day #1. Patient denies chest pain or pressure. She denies shortness of breath. Telemetry reveals atrial fibrillation with RVR. Patient remains on IV heparin. She is also on IV Cardizem at 10 mg an hour. Echocardiogram completed revealing ejection fraction 60 to 65%, severe pulmonary hypertension, trace to mild MR, mild aortic stenosis, mild to moderate tricuspid regurgitation. 05/14/2024 Patient examined this morning the bedside. Patient currently denies chest pain or pressure. She denies shortness of breath. Telemetry reveals atrial fibrillation with heart rate between . Blood pressure stable. Patient states she has not been out of bed yet this morning. 05/15/2024 Patient examined this morning the bedside. Patient currently denies chest pain or pressure. She denies shortness of breath. Telemetry reveals atrial fibrillation with a heart rate in the [id number]. Blood pressure stable. PHYSICAL EXAM: VITAL SIGNS: Reviewed. GENERAL: Well-developed in no acute distress. HEENT: Head is normocephalic. Pupils are equal, round. Sclerae anicteric. Mucous membranes of the mouth are moist. Neck supple. No JVD or thyromegaly LUNGS: Respirations even and unlabored. Lungs essentially clear to auscultation bilaterally. HEART: Irregular rate and rhythm. S1 and S2 heard. ABDOMEN: Soft. Nondistended. Nontender. EXTREMITIES: Normal range of motion. No clubbing or cyanosis. Peripheral pulses intact. No lower extremity edema NEUROLOGIC: Awake and alert. Oriented x 3. ASSESSMENT: Syncope, possible vasovagal, also possibility of arrhythmia as she was noted to be in afib with rvr, exact etiology unknown New onset atrial fibrillation with RVR, exact duration unknown Elevated troponins, likely type II AR secondary to oxygen supply/demand mismatch Hyponatremia Left hip dislocation Status post left total hip arthroplasty, 05/07/2024 Hypertension History of rheumatoid arthritis Moderate pulmonary hypertension Elevated BNP, no clinical evidence of congestive heart failure PLAN: Continue anticoagulation with Eliquis Increase metoprolol to 100 mg twice a day Continue current dose of oral Cardizem Continue telemetry monitoring Increase activity as tolerated. Patient needs to be OOB today. Patient is stable for discharge home today from a cardiac standpoint Further recommendations pending patient course Nurse practitioner note has been reviewed by physician. Signing provider agrees with the documented findings, assessment, and plan of care documented by ACT TUTOR as a scribe. Objective - Vital Signs Vital signs: Vital Signs Temp 98.1 F 05/15/24 08:47 Pulse 94 05/15/24 08:47 Resp 16 05/15/24 08:47 BP 102/59 05/15/24 08:47 Pulse Ox 98 05/15/24 08:47 FiO2 Intake & Output 05/14/24 05/15/24 05/15/24 18:59 06:59 18:59 Intake Total 480 540 Output Total 500 1 Balance - 539 Weight 68 kg Intake: Oral 480 540 Output: Urine 500 1 Other: Voiding Method Bedside Commode Bedside Commode Bedside Commode # Voids 2 - Labs CBC & Chem 7: 05/15/24 05:44 05/15/24 05:44 Labs: Abnormal Lab Results - Last 24 Hours (Table) 05/14/24 05/15/24 05/15/24 Range/Units 05:20 05:44 05:44 RBC 2.64 L (3.80-5.40) m/uL Hgb 8.3 L (11.4-16.0) gm/dL Hct 25.9 L (34.0-46.0) % Plt Count 478 H (150-450) k/uL Sodium 127 L (137-145) mmol/L Chloride 93 L (98-107) mmol/L BUN 25 H (7-17) mg/dL Glucose 100 H (74-99) mg/dL Osmolality 269 L (275-295) mOsm/kg Calcium 7.6 L (8.4-10.2) mg/dL AST 43 H (14-36) U/L Alkaline Phosphatase 195 H (38-126) U/L Total Protein 5.4 L (6.3-8.2) g/dL Albumin 2.6 L (3.5-5.0) g/dL
[2024-05-15] MEDS: METOPROLOL TARTRATE 25 MG TAB PO STA (12:18)
--- NOTE | 2024-05-15 18:28 | P.PN ---
Subjective Progress Note Date: 05/15/24 Hospital course: Patient is a very pleasant 78-year-old female with a past medical history of hypertension, breast cancer status post lumpectomy, Sjogren's disease, and recent left total hip arthroplasty on 05/07/[address] Melendez. She presented to the emergency department secondary to fall/syncopal episode. Patient reports she got up to use the restroom and upon standing became dizzy/lightheaded resulting in her blacking out/syncopal episode falling to the floor onto her left hip. She denies having any headache, changes in vision or hearing, chest pain, palpitations, shortness of breath, cognitive complaints. Patient reports severe pain left hip and lower extremity and is stated above admits to dizziness/lightheadedness prior to syncopal episode/fall. Upon arrival to our facility, patient underwent evaluation in the emergency department. X-ray left hip was completed revealing a dislocation of the femoral prosthesis from the acetabular component with no acute fractures. Vital signs upon arrival show blood pressure 107/67, heart rate 61, respiratory rate 18, temp 98.4 F, and SpO2 of 98% on room air. Shortly after arrival patient was found to be tachycardic with heart rate in 150s. EKG was completed showing atrial fibrillation with RVR at 159 bpm with T wave inversion in inferior lateral leads I, II, III, aVL, aVF, and V4 through V6. CT brain was negative for acute intracranial process showing chronic appearing periventricular white matter ischemic changes. Labs were completed and reviewed. CBC showing normocytic anemia with hemoglobin of 10.1. BMP showing mild hyponatremia with sodium of 130, chloride of 90, BUN 30, creatinine 1.06, and GFR 50. Blood glucose was 143. Liver profile showing slightly elevated AST of 46 otherwise normal findings. Troponin was elevated at 0.202 trended resulting at 0.202, 0.249, and 0.356. Patient was started on Cardizem infusion and heparin infusion. She was admitted to orthopedic surgery team and we were consulted for medical clearance followed by medical management throughout hospitalization. Cardiology was consulted secondary to new onset atrial fibrillation with RVR and syncope. Echocardiogram completed showing a preserved EF of 60 to 65% with thickened mitral valve apparatus with moderate mitral stenosis and severe pulmonary hypertension, aortic sclerosis with mild stenosis. Physical exam: Patient seen and fully evaluated at bedside this morning. She was sitting up in the chair visiting with at bedside. Patient reports she is feeling better today. States she is still having difficulties with ambulation but looking forward to going home. Her family has ordered home care supplies for he r including raised toilet seat and everything will be delivered tomorrow. Patient remains in atrial fibrillation with RVR at this time ranging 120s to 140s. Cardiology made medication changes. Vital signs reviewed and stable. General: Nontoxic, no distress and appears stated age. Derm: Skin warm and dry, normal coloration for ethnicity. Head: Atraumatic, normocephalic and symmetric. Eyes: EOM's intact, no lid lag, and anicteric sclera Mouth: no lip lesions, mucus membranes moist Cardiovascular: Irregularly irregular with normal S1S2, no murmur, positive posterior tibial pulses bilaterally, and cap refill < 2 seconds. Lungs: Respirations even, regular, and unlabored on room air. Lungs CTA bilaterally, no rhonchi, no rales, no wheezing, and no accessory muscle usage. Abdominal: soft, nontender to palpation, no guarding, no appreciable organomegaly Ext:. No gross muscle atrophy, no edema, no contractures. Movement and sensation intact. Neuro: Speech clear, face symmetrical and CN II-XII grossly intact with no noted focal neuro deficits Psych: Alert and oriented to person, place, time, and situation. Appropriate and pleasant affect. Assessment and Plan of Care: New onset atrial fibrillation with RVR NSTEMI, likely type II secondary to RVR Syncopal episode Microcytic anemia Transaminitis, likely reactive secondary to above and improving Hyponatremia Hypertension -Cardiology following, discussed plan of care with cardiac WORKPLACE TRAINER AND ASSESSOR. Metoprolol increased to 100 mg twice daily Cardizem 60 mg 3 times daily -Continue Cardizem 60 mg 3 times daily, Eliquis 5 mg twice daily, and metoprolol 100 mg twice daily -Echocardiogram completed showing a preserved EF of 60 to 65% with thickened mitral valve apparatus with moderate mitral stenosis and severe pulmonary hypertension, aortic sclerosis with mild stenosis.. -Telemetry monitoring. -Continue close monitoring of sodium level, hemoglobin, and liver enzymes with repeat a.m. labs. Additional orders may be placed pending these results. -Sodium improved from 126-127 after stopping IV fluids and single dose of Lasix 20 mg IVP will administer and repeat morning labs. Dislocation of the femoral prosthesis from the acetabular component, status post open reduction of left total hip arthroplasty with revision to dual mobility liner Status post recent left total hip arthroplasty on 05/07/2024 -Management per primary admitting orthopedic surgery team including pain management, advancement of activity, weightbearing, and PT/OT. History of breast cancer -Patient is status post lumpectomy, recommend continuation of age-appropriate yearly cancer screenings. Data and imaging reviewed: Echocardiogram completed showing a preserved EF of 60 to 65% with thickened mitral valve apparatus with moderate mitral stenosis and severe pulmonary hypertension, aortic sclerosis with mild stenosis. Vital signs reviewed. Blood pressure 102/59, heart rate 94, respiratory rate 16, temp 98.1 F, and SpO2 of 98% on room air. Morning labs reviewed. CBC showing stable normocytic anemia with hemoglobin of 8.3 and mild thrombocytosis with platelet count of 478. BMP showing hyponatremia with sodium of 127, chloride 93, and elevated BUN of 25. Liver profile continues to show improvement of transaminitis with AST of 43, ALT of 26, and alkaline phosphatase of 195. Thank you for allowing us to participate in the care of this pleasant patient. Do not hesitate to contact us with questions. Someone can be reached from the [facility] all hours of the day at [phone] or via [employer]. Patient was seen independently by Nurse Practitioner. This document was prepared using [employer] dictation software. Please allow for errors in semiconductor processing technician while rare they do occur. Anival Escalante NP rendered care for this patient independently, reviewed the findings and plan as documented in the note above and agree with plan. I did not physically speak with or examine the patient on this date. Objective - Vital Signs Vital signs: Vital Signs Temp 98.1 F 05/15/24 08:47 Pulse 94 05/15/24 08:47 Resp 16 05/15/24 08:47 BP 102/59 05/15/24 08:47 Pulse Ox 98 05/15/24 08:47 FiO2 Intake & Output 05/14/24 05/15/24 05/15/24 18:59 06:59 18:59 Intake Total 480 540 Output Total 500 1 Balance -20 539 Weight 68 kg Intake: Oral 480 540 Output: Urine 500 1 Other: Voiding Method Bedside Commode Bedside Commode # Voids 2 - Labs CBC & Chem 7: 05/15/24 05:44 05/15/24 05:44 Labs: Abnormal Lab Results - Last 24 Hours (Table) 05/14/24 05/15/24 05/15/24 Range/Units 05:20 05:44 05:44 RBC 2.64 L (3.80-5.40) m/uL Hgb 8.3 L (11.4-16.0) gm/dL Hct 25.9 L (34.0-46.0) % Plt Count 478 H (150-450) k/uL Sodium 127 L (137-145) mmol/L Chloride 93 L (98-107) mmol/L BUN 25 H (7-17) mg/dL Glucose 100 H (74-99) mg/dL Osmolality 269 L (275-295) mOsm/kg Calcium 7.6 L (8.4-10.2) mg/dL AST 43 H (14-36) U/L Alkaline Phosphatase 195 H (38-126) U/L Total Protein 5.4 L (6.3-8.2) g/dL Albumin 2.6 L (3.5-5.0) g/dL
[2024-05-15] MEDS: FUROSEMIDE 10 MG/ML 2 ML VIAL IV ONE (18:51)
[2024-05-15 20:50] VITALS: TEMP 98.2
[2024-05-16 07:27] LABS: HCT 25.5 % (34.0-46.0); HGB 8.2 gm/dL (11.4-16.0); Hypochromasia Slight; MCH 31.9 pg (25.0-35.0); MCHC 32.2 g/dL (31.0-37.0); MCV 98.8 fL (80.0-100.0); Mean Platelet Volume 7.1; Platelet Count 518 k/uL (150-450); RBC 2.58 m/uL (3.80-5.40); RDW 12.8 % (11.5-15.5); WBC 8.8 k/uL (3.8-10.6)
[2024-05-16 07:43] LABS: ALT 25 U/L (4-34); AST 41 U/L (14-36); African American GFR (CKD) 78 (>60 ml/min/1.73 sqM); Albumin 2.7 g/dL (3.5-5.0); Alkaline Phosphatase 166 U/L (38-126); Anion Gap 7 mmol/L; Blood Urea Nitrogen 20 mg/dL (7-17); Calcium 8.1 mg/dL (8.4-10.2); Carbon Dioxide 26 mmol/L (22-30); Chloride 96 mmol/L (98-107); Glucose 103 mg/dL (74-99); Non-African American GFR(CKD) 68 (>60 ml/min/1.73 sqM); Potassium 3.4 mmol/L (3.5-5.1); Sodium 129 mmol/L (137-145); Total Bilirubin 0.7 mg/dL (0.2-1.3); Total Protein 5.6 g/dL (6.3-8.2)
[2024-05-16 08:01] VITALS: BP 137/62; RESP 18
[2024-05-16] MEDS: ACETAMINOPHEN TAB 325 MG TAB PO PRN (08:27)
--- NOTE | 2024-05-16 10:14 | P.DS ---
Providers Date of admission: 05/11/24 16:58 Expected date of discharge: 05/16/24 Attending physician: Ilan Guido Consults: 05/11/24 16:21 Consult Physician Routine Consulting Provider: Tiffnaie Chun Consult Reason/Comments: medical management Do you want consulting provider notified?: Yes 05/11/24 17:11 Consult Physician Routine Consulting Provider: Gregory Restrepo Consult Reason/Comments: afib rvr new onset, syncope Do you want consulting provider notified?: Yes Primary care physician: Stated None - Discharge Diagnosis(es) (1) Atrial fibrillation Current Visit: Yes Status: Acute (2) Dislocation of hip, left, closed Current Visit: Yes Status: Acute (3) S/P total left hip arthroplasty Current Visit: Yes Status: Acute Hospital Course: This is an 78-year-old female who presented in the office today for evaluation of the left hip after a fall at home. Patient is status post left total hip arthroplasty with direct anterior approach on 05/07/[address] Ilan Guido. Patient states that she "blacked out" in the restroom in her home. Patient states that she had discomfort in the hip and could not bear any weight. X-rays done in the office revealed dislocation of the left total hip arthroplasty. Patient was transported from our office to the emergency room via EMS. Patient's past medical history is significant for hypertension, Sjogren's and breast cancer. Patient denies any numbness, tingling, chest pain, headache or light-headedness. On admission to the hospital she was found to have had a recent GA and is in new onset atrial fibrillation. The patient was taken to surgery on 05/12/2024 for revision total left hip arthroplasty. The patient is being followed by cardiology. She continues to have elevated heart rate with new onset A-fib. She is stable from an orthopedic standpoint. She may be discharged to home today if cleared by internal medicine and cardiology. Please see med rec for accurate list of home medications. Patient Condition at Discharge: Fair Plan - Discharge Summary Discharge Rx Participant: Yes New Discharge Prescriptions: No Action HYDROcodone/APAP 7.5-325MG [[place] 7.5-325] 1 - 2 tab PO Q6H PRN MDD 6 tablets PRN Reason: Pain Losartan/Hydrochlorothiazide [Hyzaar 100-12.5 Tablet] 1 tab PO DAILY Pilocarpine [Salagen] 10 mg PO QAM Pilocarpine [Salagen] 15 mg PO HS amLODIPine [Norvasc] 5 mg PO HS cycloSPORINE 0.05% OPHTH SOLN [Restasis] 1 drop BOTH EYES BID Docusate [Colace] 100 mg PO BID PRN PRN Reason: Constipation Metoprolol Tartrate [Lopressor] 50 mg PO DAILY Discharge Medication List Docusate [Colace] 100 mg PO BID PRN 05/11/24 [History] HYDROcodone/APAP 7.5-325MG [[place] 7.5-325] 1 - 2 tab PO Q6H PRN MDD 6 tablets 05/11/24 [History] Losartan/Hydrochlorothiazide [Hyzaar 100-12.5 Tablet] 1 tab PO DAILY 05/11/24 [History] Metoprolol Tartrate [Lopressor] 50 mg PO DAILY 05/11/24 [History] Pilocarpine [Salagen] 10 mg PO QAM 05/11/24 [History] Pilocarpine [Salagen] 15 mg PO HS 05/11/24 [History] amLODIPine [Norvasc] 5 mg PO HS 05/11/24 [History] cycloSPORINE 0.05% OPHTH SOLN [Restasis] 1 drop BOTH EYES BID 05/11/24 [History] Follow up Appointment(s)/Referral(s): Macey Stallings MD [STAFF PHYSICIAN] - 1 Week Robin Baires MD [STAFF PHYSICIAN] - 1 Week Medical Team,The [NON-STAFF] - As Needed Ilan Guido DO [Doctor of Osteopathic Medicine] - 10 Days Activity/Diet/Wound Care/Special Instructions: May bear weight as tolerated with walker. Follow-up with Dr. Ilan Guido in 10 days. Discharge Disposition: HOME WITH HOME HEALTH SERVICES
[2024-05-16] MEDS: POTASSIUM CHLORIDE ER 20 MEQ TAB.ER PO STA (11:06)
[2024-05-16] MEDS: AMIODARONE 200 MG TAB PO SCH (11:06)
[2024-05-16 11:11] VITALS: PULSE 102
--- NOTE | 2024-05-16 12:53 | P.PN ---
Subjective HISTORY OF PRESENT ILLNESS: This is a 78-year-old female with a past medical history significant for hypertension, rheumatoid arthritis, and recent hip replacement. Patient follows in the office with Dr. Stallings. We have been asked to see the patient in consultation for atrial fibrillation with RVR. Patient examined at the bedside in the emergency room. Patient is status post left total hip arthroplasty on 05/07/[address] Guido. Patient states that she was at home using the bathroom. She states that she was sitting on the toilet and tried to get up and then she blacked out and woke up on the floor. She does report feeling dizzy p rior to this happening. She denied having any palpitations. Denied any chest pain or shortness of breath. The patient does report that she thinks her pain pills have been contributing to some of her symptoms recently. Patient presented to the emergency room for further evaluation. Patient was found to be in atrial fibrillation with RVR. Patient was started on IV heparin and IV Cardizem. She denies a known history of atrial fibrillation. She remains in atrial fibrillation at the time of examination with a heart rate in the 90s. Her IV Cardizem is infusing at 15 mg an hour. DIAGNOSTICS: - EKG reveals A-fib with RVR. - Laboratory data: WBC 9.5. Hemoglobin 9.3. Platelet count 251. Sodium 128. Potassium 3.9. BUN 25. Creatinine 1.04. Magnesium 2.0. Troponin 0.202. 0.249. 0.356. - Current home cardiac medications include amlodipine 5 mg at night, losartanhydrochlorothiazide 100-12.5 mg daily, metoprolol tartrate 50 mg daily. - Most recent echocardiogram obtained in January 2022 revealed ejection fraction 55%, mild concentric LVH, moderate pulmonary hypertension, mild right ventricular enlargement, aortic valve sclerosis - Patient underwent Lexiscan stress test in June 2023 which was negative for ischemia 05/13/2024 Patient examined this morning at the bedside. Patient is status post open reduction left total hip arthroplasty with revision with orthopedics. Postop day #1. Patient denies chest pain or pressure. She denies shortness of breath. Telemetry reveals atrial fibrillation with RVR. Patient remains on IV heparin. She is also on IV Cardizem at 10 mg an hour. Echocardiogram completed revealing ejection fraction 60 to 65%, severe pulmonary hypertension, trace to mild MR, mild aortic stenosis, mild to moderate tricuspid regurgitation. 05/14/2024 Patient examined this morning the bedside. Patient currently denies chest pain or pressure. She denies shortness of breath. Telemetry reveals atrial fibrillation with heart rate between . Blood pressure stable. Patient states she has not been out of bed yet this morning. 05/15/2024 Patient examined this morning the bedside. Patient currently denies chest pain or pressure. She denies shortness of breath. Telemetry reveals atrial fibrillation with a heart rate in the [id number]. Blood pressure stable. 05/16/2024 Patient examined this morning the bedside. Patient currently denies chest pain or pressure. She denies shortness of breath. Telemetry reveals atrial fibrillation with a heart rate in the 120ss. Blood pressure stable. PHYSICAL EXAM: VITAL SIGNS: Reviewed. GENERAL: Well-developed in no acute distress. HEENT: Head is normocephalic. Pupils are equal, round. Sclerae anicteric. Mucous membranes of the mouth are moist. Neck supple. No JVD or thyromegaly LUNGS: Respirations even and unlabored. Lungs essentially clear to auscultation bilaterally. HEART: Irregular rate and rhythm. S1 and S2 heard. ABDOMEN: Soft. Nondistended. Nontender. EXTREMITIES: Normal range of motion. No clubbing or cyanosis. Peripheral pulses intact. No lower extremity edema NEUROLOGIC: Awake and alert. Oriented x 3. ASSESSMENT: Syncope, possible vasovagal, also possibility of arrhythmia as she was noted to be in afib with rvr, exact etiology unknown New onset atrial fibrillation with RVR, exact duration unknown Elevated troponins, likely type II AR secondary to oxygen supply/demand mismatch Hyponatremia Left hip dislocation Status post left total hip arthroplasty, 05/07/2024 Hypertension History of rheumatoid arthritis Moderate pulmonary hypertension Elevated BNP, no clinical evidence of congestive heart failure PLAN: Continue anticoagulation with Eliquis Continue current dose of metoprolol and Cardizem Add oral amiodarone 200 mg twice a day Patient is stable for discharge home today from a cardiac standpoint Further recommendations pending patient course Nurse practitioner note has been reviewed by physician. Signing provider agrees with the documented findings, assessment, and plan of care documented by MACHINE ROPE MAKER as a scribe. Objective - Vital Signs Vital signs: Vital Signs Temp 98.2 F 05/16/24 08:00 Pulse 102 H 05/16/24 11:10 Resp 18 05/16/24 08:00 BP 137/62 05/16/24 08:00 Pulse Ox 100 05/16/24 08:00 FiO2 Intake & Output 05/15/24 05/16/24 05/16/24 18:59 06:59 18:59 Intake Total 835 Balance 835 Weight 67.5 kg Intake: Oral 835 Other: Voiding Method Toilet Toilet # Voids 2 1 1 - Labs CBC & Chem 7: 05/16/24 07:00 05/16/24 07:00 Labs: Abnormal Lab Results - Last 24 Hours (Table) 05/16/24 05/16/24 Range/Units 07:00 07:00 RBC 2.58 L (3.80-5.40) m/uL Hgb 8.2 L (11.4-16.0) gm/dL Hct 25.5 L (34.0-46.0) % Plt Count 518 H (150-450) k/uL Sodium 129 L (137-145) mmol/L Potassium 3.4 L (3.5-5.1) mmol/L Chloride 96 L (98-107) mmol/L BUN 20 H (7-17) mg/dL Glucose 103 H (74-99) mg/dL Calcium 8.1 L (8.4-10.2) mg/dL AST 41 H (14-36) U/L Alkaline Phosphatase 166 H (38-126) U/L Total Protein 5.6 L (6.3-8.2) g/dL Albumin 2.7 L (3.5-5.0) g/dL
--- NOTE | 2024-05-16 13:59 | P.PN ---
Subjective Progress Note Date: 05/16/24 Hospital course: Patient is a very pleasant 78-year-old female with a past medical history of hypertension, breast cancer status post lumpectomy, Sjogren's disease, and recent left total hip arthroplasty on 05/07/[address] Melendez. She presented to the emergency department secondary to fall/syncopal episode. Patient reports she got up to use the restroom and upon standing became dizzy/lightheaded resulting in her blacking out/syncopal episode falling to the floor onto her left hip. She denies having any headache, changes in vision or hearing, chest pain, palpitations, shortness of breath, cognitive complaints. Patient reports severe pain left hip and lower extremity and is stated above admits to dizziness/lightheadedness prior to syncopal episode/fall. Upon arrival to our facility, patient underwent evaluation in the emergency department. X-ray left hip was completed revealing a dislocation of the femoral prosthesis from the acetabular component with no acute fractures. Vital signs upon arrival show blood pressure 107/67, heart rate 61, respiratory rate 18, temp 98.4 F, and SpO2 of 98% on room air. Shortly after arrival patient was found to be tachycardic with heart rate in 150s. EKG was completed showing atrial fibrillation with RVR at 159 bpm with T wave inversion in inferior lateral leads I, II, III, aVL, aVF, and V4 through V6. CT brain was negative for acute intracranial process showing chronic appearing periventricular white matter ischemic changes. Labs were completed and reviewed. CBC showing normocytic anemia with hemoglobin of 10.1. BMP showing mild hyponatremia with sodium of 130, chloride of 90, BUN 30, creatinine 1.06, and GFR 50. Blood glucose was 143. Liver profile showing slightly elevated AST of 46 otherwise normal findings. Troponin was elevated at 0.202 trended resulting at 0.202, 0.249, and 0.356. Patient was started on Cardizem infusion and heparin infusion. She was admitted to orthopedic surgery team and we were consulted for medical clearance followed by medical management throughout hospitalization. Cardiology was consulted secondary to new onset atrial fibrillation with RVR and syncope. Echocardiogram completed showing a preserved EF of 60 to 65% with thickened mitral valve apparatus with moderate mitral stenosis and severe pulmonary hypertension, aortic sclerosis with mild stenosis. Physical exam: Patient seen and fully evaluated at bedside this morning. She was sitting up in the chair and again visiting with at bedside. Patient reports she is feeling better today and hoping to get to go home. She continues to have heart rate 120s, cardiology starting her on amiodarone and if heart rates controlled she will be cleared for discharge. Vital signs reviewed and stable. General: Nontoxic, no distress and appears stated age. Derm: Skin warm and dry, normal coloration for ethnicity. Head: Atraumatic, normocephalic and symmetric. Eyes: EOM's intact, no lid lag, and anicteric sclera Mouth: no lip lesions, mucus membranes moist Cardiovascular: Irregularly irregular with normal S1S2, no murmur, positive posterior tibial pulses bilaterally, and cap refill < 2 seconds. Lungs: Respirations even, regular, and unlabored on room air. Lungs CTA bilaterally, no rhonchi, no rales, no wheezing, and no accessory muscle usage. Abdominal: soft, nontender to palpation, no guarding, no appreciable organomegaly Ext:. No gross muscle atrophy, no edema, no contractures. Movement and sensation intact. Neuro: Speech clear, face symmetrical and CN II-XII grossly intact with no noted focal neuro deficits Psych: Alert and oriented to person, place, time, and situation. Appropriate and pleasant affect. Assessment and Plan of Care: New onset atrial fibrillation with RVR NSTEMI, likely type II secondary to RVR Syncopal episode Microcytic anemia, stable Thrombocytosis, likely reactive Transaminitis, likely reactive secondary to above and improving Hyponatremia improving Hypertension -Cardiology following, discussed plan of care with cardiac FINANCIAL ADMINISTRATIVE ASSISTANT. Stating patient to continue metoprolol 100 mg twice daily, Cardizem 60 mg 3 times daily and amiodarone 200 mg twice daily., Cardiology clearing patient from their perspective for discharge. -Echocardiogram completed showing a preserved EF of 60 to 65% with thickened mitral valve apparatus with moderate mitral stenosis and severe pulmonary hypertension, aortic sclerosis with mild stenosis.. -Telemetry monitoring. Dislocation of the femoral prosthesis from the acetabular component, status post open reduction of left total hip arthroplasty with revision to dual mobility liner Status post recent left total hip arthroplasty on 05/07/2024 -Management per primary admitting orthopedic surgery team including pain manag ement, advancement of activity, weightbearing, and PT/OT. History of breast cancer -Patient is status post lumpectomy, recommend continuation of age-appropriate yearly cancer screenings. Data and imaging reviewed: Vital signs reviewed. Blood pressure 130/58, heart rate 121, respiratory rate 16, temp 98.2 F, and SpO2 of 90% on room air. Morning labs reviewed. CBC showing stable normocytic anemia with hemoglobin of 8.2 and slightly worsened thrombocytosis with platelet count of 518. BMP showing improvement of sodium to 129, slightly low potassium of 3.4 and orders placed for K-Dur 40 mEq p.o. x 1 dose. Blood glucose 103. Magnesium 2.0 and liver function shows continued improvement with of 41, ALT 25 and alkaline phosphatase of 166. Thank you for allowing us to participate in the care of this pleasant patient. Do not hesitate to contact us with questions. Someone can be reached from the [facility] hospitalist group all hours of the day at [phone] or via U-NOTE. Patient was seen independently by Nurse Practitioner. This document was prepared using [employer] dictation software. Please allow for errors in senior net architect while rare they do occur. Anival Escalante NP rendered care for this patient independently, reviewed the findings and plan as documented in the note above and agree with plan. I did not physically speak with or examine the patient on this date. . Objective - Vital Signs Vital signs: Vital Signs Temp 98.2 F 05/16/24 08:00 Pulse 165 H 05/16/24 08:00 Resp 18 05/16/24 08:00 BP 137/62 05/16/24 08:00 Pulse Ox 100 05/16/24 08:00 FiO2 Intake & Output 05/15/24 05/16/24 05/16/24 18:59 06:59 18:59 Intake Total 835 Balance 835 Weight 67.5 kg Intake: Oral 835 Other: Voiding Method Toilet Toilet # Voids 2 1 1 - Labs CBC & Chem 7: 05/16/24 07:00 05/16/24 07:00 Labs: Abnormal Lab Results - Last 24 Hours (Table) 05/16/24 05/16/24 Range/Units 07:00 07:00 RBC 2.58 L (3.80-5.40) m/uL Hgb 8.2 L (11.4-16.0) gm/dL Hct 25.5 L (34.0-46.0) % Plt Count 518 H (150-450) k/uL Sodium 129 L (137-145) mmol/L Potassium 3.4 L (3.5-5.1) mmol/L Chloride 96 L (98-107) mmol/L BUN 20 H (7-17) mg/dL Glucose 103 H (74-99) mg/dL Calcium 8.1 L (8.4-10.2) mg/dL AST 41 H (14-36) U/L Alkaline Phosphatase 166 H (38-126) U/L Total Protein 5.6 L (6.3-8.2) g/dL Albumin 2.7 L (3.5-5.0) g/dL
== END 2024-05-16 14:37 | disposition home health service (06) | DRG 466 ==
LOC: EC 15:58 → 3SCARD 16:58
PROVIDERS: ADMIT Orthopaedic Surgery; ATTEND Orthopaedic Surgery
PROC: 0SUE09Z Supplement Left Hip Joint, Acetabular Surface with Liner, Open Approach (ICD-10-PCS; principal; 2024-05-12 08:35)
PROC: 0SPB09Z Removal of Liner from Left Hip Joint, Open Approach (ICD-10-PCS; principal; 2024-05-12 08:35)
DX: T84.021A Dislocation of internal left hip prosthesis, initial encounter (principal); I21.A1 Myocardial infarction type 2; I27.20 Pulmonary hypertension, unspecified; M06.9 Rheumatoid arthritis, unspecified; I10 Essential (primary) hypertension; D64.9 Anemia, unspecified; I08.3 Combined rheumatic disorders of mitral, aortic and tricuspid valves; E87.1 Hypo-osmolality and hyponatremia; I48.91 Unspecified atrial fibrillation; R00.0 Tachycardia, unspecified; R74.01 Elevation of levels of liver transaminase levels; W18.30XA Fall on same level, unspecified, initial encounter; Y79.2 Prosthetic and other implants, materials and accessory orthopedic devices associated with adverse incidents; Y92.009 Unspecified place in unspecified non-institutional (private) residence as the place of occurrence of the external cause; M35.00 Sjogren syndrome, unspecified; Z79.899 Other long term (current) drug therapy; Z85.3 Personal history of malignant neoplasm of breast; Z87.891 Personal history of nicotine dependence
CPT/HCPCS: 36415; 70450; 73501; 80053; 83735; 83880; 83930; 83935; 84443; 84484; 85025; 85027; 85730; 93005; 93306; 96365; 96366; 96368; 96375; 96376; 99285

== ENCOUNTER 2024-06-07 22:12 | Inpatient (IN) | payer MEDICARE ==
--- NOTE | 2024-06-07 22:39 | ED ---
General Adult HPI - General Chief complaint: Shortness of Breath Stated complaint: SOB Time Seen by Provider: 06/07/24 22:18 Source: patient, EMS, RN notes reviewed, old records reviewed Mode of arrival: EMS - History of Present Illness Initial comments: 79-year-old female with progressive dyspnea over the past several days. Patient reports bilateral lower extremity swelling. She is 1 month postop left total hip. She had an issue with atrial fibrillation during this admission and was started on Eliquis. She has been compliant with her medication. She denies current diuretics denies history of CHF. Denies chest pain. Denies fever. Denies cough - Related Data Home Medications Medication Instructions Recorded Confirmed Docusate [Colace] 100 mg PO BID PRN 05/11/24 05/11/24 HYDROcodone/APAP 7.5-325MG [[place] 1 - 2 tab PO Q6H PRN MDD 6 tablets 05/11/24 05/11/24 7.5-325] cycloSPORINE 0.05% OPHTH SOLN 1 drop BOTH EYES BID 05/11/24 05/11/24 [Restasis] Previous Rx's Medication Instructions Recorded Amiodarone [Cordarone] 200 mg PO BID 30 Days #60 tab 05/16/24 Apixaban [Eliquis] 5 mg PO BID 30 Days #60 tab 05/16/24 Diltiazem Oral [Cardizem*] 60 mg PO TID 30 Days #180 tab 05/16/24 Metoprolol Tartrate [Lopressor] 100 mg PO BID 30 Days #120 tab 05/16/24 Allergies Allergy/AdvReac Type Severity Reaction Status Date / Time No Known Allergies Allergy Verified 06/07/24 22:22 Review of Systems ROS Statement: Those systems with pertinent positive or pertinent negative responses have been documented in the HPI. ROS Other: All systems not noted in ROS Statement are negative. Past Medical History Past Medical History: Cancer, Hypertension Additional Past Medical History / Comment(s): Shogren's disease, breast cancer History of Any Multi-Drug Resistant Organisms: None Reported Past Surgical History: Joint Replacement Additional Past Surgical History / Comment(s): L hip replacement 2024. lumpectomy Past Anesthesia/Blood Transfusion Reactions: No Reported Reaction Past Psychological History: No Psychological Hx Reported Smoking Status: Former smoker Past Alcohol Use History: Occasional Past Drug Use History: None Reported General Exam General appearance: alert, in no apparent distress Head exam: Present: atraumatic, normocephalic Eye exam: Present: normal appearance, PERRL ENT exam: Present: normal exam Neck exam: Present: normal inspection Respiratory exam: Present: rales, decreased breath sounds Cardiovascular Exam: Present: regular rate, normal rhythm, JVD GI/Abdominal exam: Present: soft. Absent: distended, tenderness Extremities exam: Present: pedal edema Neurological exam: Present: alert, oriented X3, CN II-XII intact. Absent: motor sensory deficit Psychiatric exam: Present: normal affect, normal mood Skin exam: Present: warm, dry, intact. Absent: cyanosis, diaphoretic Course Vital Signs 06/07/24 06/07/24 06/07/24 22:15 22:20 23:22 Temperature 98.0 F Pulse Rate 61 Respiratory 18 18 16 Rate Blood Pressure 172/74 166/64 O2 Sat by Pulse 93 L 94 L Oximetry 06/08/24 00:35 Temperature Pulse Rate 70 Respiratory 18 Rate Blood Pressure 161/61 O2 Sat by Pulse 96 Oximetry Medical Decision Making - Medical Decision Making Was pt. sent in by a medical professional or institution (, PA, BOILER FITTER, urgent care, hospital, or [facility]...) When possible be specific @ -No Did you speak to anyone other than the patient for history (EMS, parent, family, police, friend...)? What history was obtained from this source @ -No Did you review nursing and triage notes (agree or disagree)? Why? @ -I reviewed and agree with nursing and triage notes Were old charts reviewed (outside hosp., previous admission, EMS record, old EKG, old radiological studies, urgent care reports/EKG's, [facility] records)? Report findings @ -No old charts were reviewed Differential Dyspnea: Coronary syndrome, arrhythmia, tamponade, asthma, COPD, pulmonary embolism, pneumonia, pneumothorax, pulmonary effusion, anaphylaxis, diabetic ketoacidosis, flailed chest, pulmonary contusion, diaphragmatic rupture, anemia, neuromuscular, this is not meant to be an all-inclusive list. EKG interpreted by me (3pts min.). @EKG: Sinus rhythm T wave inversion in lead III, no ST segment elevation, ventricular rate of 65, IN interval 144, QRS duration 78, QTc 420 X-rays interpreted by me (1pt min.). @X-ray showing CHF with right-sided pleural effusion CT interpreted by me (1pt min.). @ -None done U/S interpreted by me (1pt. min.). @ -None done What testing was considered but not performed or refused? (CT, X-rays, U/S, labs)? Why? @ -None What meds were considered but not given or refused? Why? @ -None Did you discuss the management of the patient with other professionals (professionals i.e. , PA, BOILER FITTER, lab, RT, psych nurse, social research assistant, parachute supervisor, teacher, digital controls technical officer, counter caser)? Give summary @ -EMH Was smoking cessation discussed for >3mins.? @ -No Was critical care preformed (if so, how long)? @ -No Were there social determinants of health that impacted care today? How? (Homelessness, low income, unemployed, alcoholism, drug addiction, transportation, low edu. Level, literacy, decrease access to med. care, group home, rehab)? @ -No Was there de-escalation of care discussed even if they declined (Discuss DNR or withdrawal of care, Hospice)? DNR status @ -No What co-morbidities impacted this encounter? (DM, HTN, Smoking, COPD, CAD, Cancer, CVA, ARF, Chemo, Hep., AIDS, mental health diagnosis, sleep apnea, mor bid obesity)? @ -[Atrial fibrillation Was patient admitted / discharged? Hospital course, mention meds given and route, prescriptions, significant lab abnormalities, going to OR and other pertinent info. @ -79-year-old female with increased dyspnea, weight gain, bilateral lower extremity edema. Chest x-ray consistent with CHF with pulmonary vascular congestion and effusion. Elevated BNP at 8000. Negative troponin, she is anemic but this is improved from prior. Patient is in sinus rhythm. She will be admitted for IV diuresis. Cardiology placed on consult. Undiagnosed new problem with uncertain prognosis? @ -No Drug Therapy requiring intensive monitoring for toxicity (Heparin, Nitro, Insulin, Cardizem)? @ -No Were any procedures done? @ -No Diagnosis/symptom? @ -CHF, hypoxia Acute, or Chronic, or Acute on Chronic? @ -[Acute Uncomplicated (without systemic symptoms) or Complicated (systemic symptoms)? @ -Default Side effects of treatment? @ -No Exacerbation, Progression, or Severe Exacerbation? @ -No Poses a threat to life or bodily function? How? (Chest pain, USA, GA, pneumonia, PE, COPD, DKA, ARF, appy, cholecystitis, CVA, Diverticulitis, Homicidal, Suicidal, threat to staff... and all critical care pts) @ -[Yes, CHF, respiratory failure - Lab Data Result diagrams: 06/07/24 22:36 06/07/24 22:36 Lab Results 06/07/24 06/07/24 06/07/24 Range/Units 22:36 22:36 22:36 WBC 4.4 (3.8-10.6) k/uL RBC 3.44 L (3.80-5.40) m/uL Hgb 10.4 L (11.4-16.0) gm/dL Hct 35.6 (34.0-46.0) % MCV 103.5 H (80.0-100.0) fL MCH 30.3 (25.0-35.0) pg MCHC 29.2 L (31.0-37.0) g/dL RDW 17.6 H (11.5-15.5) % Plt Count 361 (150-450) k/uL MPV 7.3 Neutrophils % (Manual) 72 % Band Neuts % (Manual) 6 % Lymphocytes % (Manual) 14 % Monocytes % (Manual) 8 % Metamyelocytes % 1 % Neutrophils # (Manual) 3.40 (1.3-7.7) k/uL Lymphocytes # (Manual) 0.62 L (1.0-4.8) k/uL Monocytes # (Manual) 0.35 (0-1.0) k/uL Metamyelocytes # (Man) 0.04 H (0) k/uL Nucleated RBCs 1 H (0-0) /100 WBC Manual Slide Review Performed Hypochromasia Marked Poikilocytosis Slight Anisocytosis Slight Macrocytosis Moderate PT 11.7 (10.0-12.5) sec INR 1.1 (<1.2) APTT 23.0 (22.0-30.0) sec Sodium 135 L (137-145) mmol/L Potassium 4.1 (3.5-5.1) mmol/L Chloride 101 (98-107) mmol/L Carbon Dioxide 26 (22-30) mmol/L Anion Gap 8 mmol/L BUN 17 (7-17) mg/dL Creatinine 0.72 (0.52-1.04) mg/dL Est GFR (CKD-EPI)AfAm >90 (>60 ml/min/1.73 sqM) Est GFR (CKD-EPI)NonAf 80 (>60 ml/min/1.73 sqM) Glucose 114 H (74-99) mg/dL Calcium 8.8 (8.4-10.2) mg/dL Total Bilirubin 0.5 (0.2-1.3) mg/dL AST 33 (14-36) U/L ALT 16 (4-34) U/L Alkaline Phosphatase 208 H (38-126) U/L Troponin I (0.000-0.034) ng/mL NT-Pro-B Natriuret Pep 8130 pg/mL Total Protein 7.1 (6.3-8.2) g/dL Albumin 3.7 (3.5-5.0) g/dL 06/07/24 Range/Units 22:36 WBC (3.8-10.6) k/uL RBC (3.80-5.40) m/uL Hgb (11.4-16.0) gm/dL Hct (34.0-46.0) % MCV (80.0-100.0) fL MCH (25.0-35.0) pg MCHC (31.0-37.0) g/dL RDW (11.5-15.5) % Plt Count (150-450) k/uL MPV Neutrophils % (Manual) % Band Neuts % (Manual) % Lymphocytes % (Manual) % Monocytes % (Manual) % Metamyelocytes % % Neutrophils # (Manual) (1.3-7.7) k/uL Lymphocytes # (Manual) (1.0-4.8) k/uL Monocytes # (Manual) (0-1.0) k/uL Metamyelocytes # (Man) (0) k/uL Nucleated RBCs (0-0) /100 WBC Manual Slide Review Hypochromasia Poikilocytosis Anisocytosis Macrocytosis PT (10.0-12.5) sec INR (<1.2) APTT (22.0-30.0) sec Sodium (137-145) mmol/L Potassium (3.5-5.1) mmol/L Chloride (98-107) mmol/L Carbon Dioxide (22-30) mmol/L Anion Gap mmol/L BUN (7-17) mg/dL Creatinine (0.52-1.04) mg/dL Est GFR (CKD-EPI)AfAm (>60 ml/min/1.73 sqM) Est GFR (CKD-EPI)NonAf (>60 ml/min/1.73 sqM) Glucose (74-99) mg/dL Calcium (8.4-10.2) mg/dL Total Bilirubin (0.2-1.3) mg/dL AST (14-36) U/L ALT (4-34) U/L Alkaline Phosphatase (38-126) U/L Troponin I 0.024 (0.000-0.034) ng/mL NT-Pro-B Natriuret Pep pg/mL Total Protein (6.3-8.2) g/dL Albumin (3.5-5.0) g/dL Disposition Clinical Impression: Congestive heart failure Disposition: ADMITTED IP TO THIS HOSP Condition: Stable Is patient prescribed a controlled substance at d/c from ED?: No Referrals: Nonstaff,Physician [Primary Care Provider] - 1-2 days Time of Disposition: 01:01
[2024-06-07 23:01] LABS: INR 1.1 (<1.2); Prothrombin Time 11.7 sec (10.0-12.5)
[2024-06-07 23:15] LABS: Anisocytosis Slight; HCT 35.6 % (34.0-46.0); HGB 10.4 gm/dL (11.4-16.0); Hypochromasia Marked; MCH 30.3 pg (25.0-35.0); MCHC 29.2 g/dL (31.0-37.0); MCV 103.5 fL (80.0-100.0); Macrocytosis Moderate; Mean Platelet Volume 7.3; Platelet Count 361 k/uL (150-450); Poikilocytosis Slight; RBC 3.44 m/uL (3.80-5.40); RDW 17.6 % (11.5-15.5); WBC 4.4 k/uL (3.8-10.6)
[2024-06-07 23:36] LABS: ALT 16 U/L (4-34); African American GFR (CKD) >90 (>60 ml/min/1.73 sqM); Albumin 3.7 g/dL (3.5-5.0); Anion Gap 8 mmol/L; Blood Urea Nitrogen 17 mg/dL (7-17); Calcium 8.8 mg/dL (8.4-10.2); Carbon Dioxide 26 mmol/L (22-30); Chloride 101 mmol/L (98-107); Glucose 114 mg/dL (74-99); Non-African American GFR(CKD) 80 (>60 ml/min/1.73 sqM); Sodium 135 mmol/L (137-145); Total Bilirubin 0.5 mg/dL (0.2-1.3); Total Protein 7.1 g/dL (6.3-8.2)
[2024-06-07 23:44] LABS: NT-Pro-B-Type Natriuretic Pept 8130 pg/mL
[2024-06-07 23:47] LABS: Band Neutrophils % 6 %; Lymphocytes # (M) 0.62 k/uL (1.0-4.8); Metamyelocytes # (M) 0.04 k/uL (0); Metamyelocytes % 1 %; Monocytes # (M) 0.35 k/uL (0-1.0); Neutrophils % (M) 72 %; Nucleated Red Blood Cells 1 /100 WBC (0-0); Total Cells Counted 200
[2024-06-07 23:58] LABS: AST 33 U/L (14-36); Alkaline Phosphatase 208 U/L (38-126); Potassium 4.1 mmol/L (3.5-5.1)
[2024-06-08] MEDS: FUROSEMIDE 10 MG/ML 4 ML VIAL IV STA (00:33)
[2024-06-08] MEDS ORDERED: ACETAMINOPHEN TAB 325 MG TAB PO PRN (00:57)
[2024-06-08] MEDS ORDERED: NALOXONE 0.4 MG/ML 1 ML VIAL IV PRN (00:57)
--- NOTE | 2024-06-08 01:05 | XR ---
EXAM: XR Chest, 2 Views CLINICAL HISTORY: difficulty breathing TECHNIQUE: Frontal and lateral views of the chest. COMPARISON: No relevant prior studies available. FINDINGS: Lungs: Small to moderate amount of diffuse airspace opacities throughout both lungs, more on the right. Pleural space: Small to moderate pleural effusions, more on the right. Mediastinum: Unremarkable. Normal mediastinal contour. Bones/joints: No acute findings. Soft tissues: Clustered surgical clips over right breast. IMPRESSION: 1. Lung findings suggest asymmetrical edema versus pneumonia, worse on the right.. 2. Small to moderate pleural effusions, more on the right.
[2024-06-08] MEDS ORDERED: DEXTROSE 50% SYRINGE 50 ML IVP PRN ×2 (08:15)
[2024-06-08] MEDS ORDERED: METOPROLOL TARTRATE 50 MG TAB PO SCH (09:00)
[2024-06-08] MEDS ORDERED: METOPROLOL TARTRATE 25 MG TAB PO SCH (09:00)
--- NOTE | 2024-06-08 09:13 | P.HPIM ---
History of Present Illness H&P Date: 06/08/24 Chief Complaint: Shortness of breath Patient is a 79-year-old female with a history of A-fib on Eliquis, hypertension, breast cancer status post lumpectomy, Sjogren's disease and recent left total hip arthroplasty on 05/07/[address] Melendez presented to ER on 06/07/2024 for progressively worsening dyspnea since 1 week. Patient reports exertional dyspnea since 1 week associated with bilateral leg swelling, orthopnea and PND. Patient had recent follow-up with orthopedic Dr. Melendez and cardiology Dr. Stallings. Patient denies chest pain, abdominal pain, nausea, vomiting, diarrhea or constipation, fever, chills, numbness/weakness/tingling in upper or lower extremities. Patient denies any recent travel or upper respiratory tract infection. Patient is given stat dose of IV Lasix in the ER which has helped alleviate respiratory distress somewhat. At the time of interview, patient is on oxygen therapy with 2 L via nasal cannula and denies any shortness of breath with no chest pain. Initial evaluation in the ER shows WBC 4.4, hemoglobin 10.4, MCV 103.5, sodium 135, potassium 4.1, chloride 101, bicarb 26, BUN 17, creatinine 0.72, glucose 114, ALP 208, AST 33, ALT 16, NT proBNP 8130. D-dimer 2.76 mg/L Chest x-ray done in the ER shows moderate bilateral pleural effusions with diffuse airspace opacities. EKG done in the ER shows sinus rhythm with occasional supraventricular premature complexes with heart rate of 65 bpm, MD interval 144 ms, QRS duration 78 ms, QTc duration 420 ms. Normal R wave progression. No ST to T wave changes noted. Vital signs on arrival shows 98.0 F, pulse rate 61, respiratory 18, blood pressure 172/74, oxygen saturation 93% on room air. Subsequent vital signs show pulse rate 66, respiratory rate 18, blood pressure 1 5462, oxygen saturation 97% on 2 L via nasal cannula. Review of systems: Pertinent positives and negatives as discussed in HPI, a complete review of systems was performed and all other systems are negative. Social history: Tobacco: Non-smoker Alcohol: Nondrinker Physical examination: Vital signs reviewed General: non toxic, no distress, appears at stated age, normal weight Derm: no unusual rashes/lesions, warm Head: atraumatic, normocephalic, symmetric Eyes: EOMI, no lid lag, anicteric sclera, pupils equal round reactive to light ENT: Nose and ears atraumatic Neck: No cervical lymphadenopathy, trachea midline, supple Mouth: no lip lesion, mucus membranes moist Cardiovascular: S1S2 reg, no murmur, positive dorsalis pedis pulse bilateral, 2+ bilateral lower extremity edema Lungs: Bibasilar crackles noted, no wheezing, no use of accessory muscles. Abdominal: soft, nontender to palpation, no guarding Ext: muscle strength 5 out of 5 in all 4 extremities grossly, no gross muscle atrophy, no contractures, Neuro: CN II-XI grossly intact, no gross focal neuro deficits Psych: Alert, oriented, appropriate affect Assessment/Plan: This is a Patient is a 79-year-old female with a history of A-fib on Eliquis, hypertension, breast cancer status post lumpectomy, Sjogren's disease and recent left total hip arthroplasty on 05/07/[address] Melendez presented to ER on 06/07/2024 for progressively worsening dyspnea since 1 week. . Case was discussed with the Emergency Room provider and decision was made to admit the patient for congestive heart failure. Labs and images: Laboratory evaluation in the ER shows WBC 4.4, hemoglobin 10.4, MCV 103.5, s odium 135, potassium 4.1, chloride 101, bicarb 26, BUN 17, creatinine 0.72, glucose 114, ALP 208, AST 33, ALT 16, NT proBNP 8130. Chest x-ray done in the ER shows moderate bilateral pleural effusions with diffuse airspace opacities. EKG done in the ER shows sinus rhythm with occasional supraventricular premature complexes with heart rate of 65 bpm, MD interval 144 ms, QRS duration 78 ms, QTc duration 420 ms. Normal R wave progression. No ST to T wave changes noted. Active problems: #Acute diastolic congestive heart failure Oxygen therapy as needed IV Lasix 40 mg every 12 hours Echo done on 05/12/2024 shows LVEF 60 to 65%. Moderate mitral stenosis with severe pulmonary hypertension. Consult cardiology Initiate GDMT: Metoprolol 25 mg twice daily, consider adding of ARNI, SGLT2i, and MRA I's and O's and daily weights Fluid restriction to 1500 mL/day Lipid panel TSH 0.615 on 05/12/2024 #Elevated D-dimer, rule out PE Order CTPA Continue with Eliquis #Elevated alkaline phosphatase Order GGT Consider right upper quadrant ultrasound if GGT is increased #Hyperglycemia Accu-Cheks and sliding scale insulin HbA1c Monitor for hypoglycemia #Macrocytic anemia Vitamin B12 579 and folate 40 on 04/28/2024 Continue monitor Chronic conditions: Hypertension: Resume Norvasc 5 mg p.o. at bedtime Atrial fibrillation: Resume Eliquis 5 mg twice daily and metoprolol Order CBC and BMP tomorrow a.m. DVT prophylaxis: Eliquis 5 mg p.o. twice daily GI prophylaxis: None F: None E: Replete as needed N: Heart healthy diet A: Ambulatory at baseline The patient is admitted with an anticipated less than than 2 midnight stay for evaluation of CHF CODE STATUS: Full code Discussed with: Patient Anticipated discharge place: Pending clinical course Dictation was produced using [employer] dictation software. Please excuse any grammatical, word or spelling errors. Past Medical History Past Medical History: Cancer, Hypertension Additional Past Medical History / Comment(s): Shogren's disease, breast cancer History of Any Multi-Drug Resistant Organisms: None Reported Past Surgical History: Joint Replacement Additional Past Surgical History / Comment(s): L hip replacement 2024. lumpectomy Past Anesthesia/Blood Transfusion Reactions: No Reported Reaction Past Psychological History: No Psychological Hx Reported Smoking Status: Former smoker Past Alcohol Use History: Occasional Past Drug Use History: None Reported Medications and Allergies Home Medications Medication Instructions Recorded Confirmed Type cycloSPORINE 0.05% OPHTH SOLN 1 drop BOTH EYES BID 05/11/24 06/08/24 History [Restasis] Apixaban [Eliquis] 5 mg PO BID 30 Days #60 tab 05/16/24 06/08/24 Rx Metoprolol Tartrate [Lopressor] 100 mg PO BID 30 Days #120 tab 05/16/24 06/08/24 Rx Acetaminophen/Diphenhydramine 2 tab PO HS 06/08/24 06/08/24 History [Tylenol PM 500-25mg] Amiodarone [Cordarone] 200 mg PO DAILY 06/08/24 06/08/24 History amLODIPine [Norvasc] 5 mg PO HS 06/08/24 06/08/24 History Allergies Allergy/AdvReac Type Severity Reaction Status Date / Time No Known Allergies Allergy Verified 06/08/24 06:44 Physical Exam Vitals: Vital Signs Temp Pulse Resp BP Pulse Ox 06/08/24 05:50 66 18 154/62 97 06/08/24 03:43 72 18 159/69 96 06/08/24 02:05 69 16 149/61 97 06/08/24 00:35 70 18 161/61 96 06/07/24 23:22 61 16 166/64 94 L 06/07/24 22:20 18 06/07/24 22:15 98.0 F 18 172/74 93 L Intake and Output 06/07/24 06/08/24 06/08/24 22:59 06:59 14:59 Intake Total 350 Output Total 3200 Balance -2850 Intake: Oral 350 Output: Urine 3200 Other: Weight 61.235 kg Results CBC & Chem 7: 06/07/24 22:36 06/07/24 22:36 Labs: Abnormal Lab Results - Last 24 Hours (Table) 06/07/24 06/07/24 Range/Units 22:36 22:36 RBC 3.44 L (3.80-5.40) m/uL Hgb 10.4 L (11.4-16.0) gm/dL MCV 103.5 H (80.0-100.0) fL MCHC 29.2 L (31.0-37.0) g/dL RDW 17.6 H (11.5-15.5) % Lymphocytes # (Manual) 0.62 L (1.0-4.8) k/uL Metamyelocytes # (Man) 0.04 H (0) k/uL Nucleated RBCs 1 H (0-0) /100 WBC Sodium 135 L (137-145) mmol/L Glucose 114 H (74-99) mg/dL Alkaline Phosphatase 208 H (38-126) U/L
[2024-06-08] MEDS: METOPROLOL TARTRATE 25 MG TAB PO SCH (09:45)
[2024-06-08] MEDS: APIXABAN 5 MG TAB PO SCH (09:45)
[2024-06-08] MEDS: FUROSEMIDE 10 MG/ML 4 ML VIAL IV SCH (09:46)
[2024-06-08] MEDS: cycloSPORINE 0.05% OPHTH 0.4 ML DROPERETTE BOTH EYES SCH (10:16)
[2024-06-08 11:41] LABS: Glucose,Whole Blood 117 mg/dL (70-110)
[2024-06-08] MEDS: INSULIN LISPRO (HumaLOG) 100 UNIT/ML 10 mL VL SQ SCH (11:41)
--- NOTE | 2024-06-08 12:10 | US ---
EXAMINATION TYPE: US venous doppler duplex LE BI DATE OF EXAM: 06/08/2024 10:44 AM COMPARISON: NONE CLINICAL INDICATION: Female, 79 years old with history of edema post hip surgery; edema in both legs since left hip surgery a month ago. No hx of DVT. On blood thinners., Pain TECHNIQUE: The lower extremity deep venous system is examined utilizing real time linear array sonog maisha with graded compression, color doppler sonography, and spectral doppler. SIDE PERFORMED: Bilateral FINDINGS: VESSELS IMAGED: Common Femoral Vein Deep Femoral Vein Greater Saphenous Vein * Femoral Vein Popliteal Vein Small Saphenous Vein * Proximal Calf Veins (* superficial vessels) Right Leg: No evidence for DVT, Color Doppler imaging shows patency of the vessels. Spectral wavefor ms are within normal limits. Left Leg: No evidence for DVT, Color Doppler imaging shows patency of the vessels. Spectral waveform s are within normal limits. IMPRESSION: No ultrasound evidence for deep venous thrombosis. [facility], , 06/08/2024 12:08 PM
[2024-06-08] MEDS: AMIODARONE 200 MG TAB PO SCH (12:25)
[2024-06-08] MEDS: LOSARTAN-HCTZ 50-12.5 MG 1 EACH TAB PO SCH (12:25)
--- NOTE | 2024-06-08 13:15 | P.CRDCN ---
History of Present Illness Consult date: 06/08/24 Consult reason: congestive heart failure History of present illness: This is an 79-year-old female patient of Dr. MAAME Stallings with past medical history of hypertension, hyperlipidemia, Sjogren's disease, rheumatoid arthritis, RV enlargement secondary untreated sleep apnea. Patient had a recent syncopal episode when she was on the toilet landing on her left hip and required surgical intervention performed on 05/07/2024 followed by open reduction of dislocation of the same hip. During that hospitalization, patient was found to be in A-fib with RVR. She now presents to the hospital with difficulty breathing that has been going on for about 1 week. Patient had increasing difficulty with breathing as well as lower leg swelling. Patient has been started on IV Lasix. Patient was last seen in the office on 05/2024 at that time amiodarone was decreased to once daily dosing with plan to discontinue on her next visit. Cardizem was discontinued. Patient was scheduled for Lexiscan stress test which patient states is scheduled for this week in the office. -EKG: Sinus rhythm with PACs -Chest x-ray: Asymmetrical edema versus pneumonia, worse on the right. Small to moderate pleural effusions more on the right. -Laboratory studies: WBC 4.4, hemoglobin 10.4. D-dimer 2.76. Sodium 135, potassium 4.1, creatinine 0.72. -Home cardiac medications: Amiodarone 200 mg daily, amlodipine 5 mg at bedtime, Eliquis 5 mg twice daily, Lopressor 100 mg twice daily - Review Of Systems: At the time of my exam: CONSTITUTIONAL: Denies fever or chills. HEENT: Denies blurred vision, vision changes, or eye pain. Denies hemoptysis CARDIOVASCULAR: Denies chest pain. Denies orthopnea. Denies PND. Denies palpitations RESPIRATORY: Reports dyspnea on exertion, reports shortness of breath. GASTROINTESTINAL: Denies abdominal pain. Denies nausea or vomiting. HEMATOLOGIC: Denies bleeding disorders. GENITOURINARY: Denies any blood in urine. SKIN: Denies puritis. Denies rash. Physical examination: Gen: This is a 79-year-old female in no acute distress VS: reviewed HEENT: Head is atraumatic, normocephalic. Pupils equal, round. Sclerae is anicteric. NECK: Supple. No JVD. LUNGS: Clear to auscultation. No wheezes or rhonchi. No intercostal retract ions. HEART: Regular rate and rhythm. No murmur. ABDOMEN: Soft No tenderness. EXTREMITIES: Bilateral lower extremity edema. No calf tenderness. NEUROLOGICAL: Patient is awake, alert and oriented x3. Assessment: Acute diastolic heart failure Pulmonary hypertension Paroxysmal atrial fibrillation currently in sinus rhythm Hypertension Hyperlipidemia Sjogren's disease Rheumatoid arthritis RV enlargement secondary to untreated sleep apnea Recent left hip arthroplasty and open reduction of dislocated left hip in April Plan: Resume patient's home cardiac medications Continue IV Lasix 40 mg every 12 hours Monitor NITA, daily weights, electrolytes and renal function Discontinue amlodipine due to lower extremity edema Start patient on losartanhydrochlorothiazide 50-12.5 mg 1 daily Obtain limited 2-D echocardiogram to evaluate LV F and RVSP Further recommendations to follow based upon clinical course Thank you kindly for this consultation. Nurse practitioner note has been reviewed, I agree with documented findings and plan of care. Patient was seen and examined. Past Medical History Past Medical History: Cancer, Hypertension Additional Past Medical History / Comment(s): Shogren's disease, breast cancer History of Any Multi-Drug Resistant Organisms: None Reported Past Surgical History: Joint Replacement Additional Past Surgical History / Comment(s): L hip replacement 2024. lumpectomy Past Anesthesia/Blood Transfusion Reactions: No Reported Reaction Past Psychological History: No Psychological Hx Reported Smoking Status: Former smoker Past Alcohol Use History: Occasional Past Drug Use History: None Reported Medications and Allergies Home Medications Medication Instructions Recorded Confirmed Type cycloSPORINE 0.05% OPHTH SOLN 1 drop BOTH EYES BID 05/11/24 06/08/24 History [Restasis] Apixaban [Eliquis] 5 mg PO BID 30 Days #60 tab 05/16/24 06/08/24 Rx Metoprolol Tartrate [Lopressor] 100 mg PO BID 30 Days #120 tab 05/16/24 06/08/24 Rx Acetaminophen/Diphenhydramine 2 tab PO HS 06/08/24 06/08/24 History [Tylenol PM 500-25mg] Amiodarone [Cordarone] 200 mg PO DAILY 06/08/24 06/08/24 History amLODIPine [Norvasc] 5 mg PO HS 06/08/24 06/08/24 History Allergies Allergy/AdvReac Type Severity Reaction Status Date / Time No Known Allergies Allergy Verified 06/08/24 06:44 Physical Exam Vitals: Vital Signs Temp Pulse Resp BP Pulse Ox 06/08/24 09:00 77 20 145/59 99 06/08/24 05:50 66 18 154/62 97 06/08/24 03:43 72 18 159/69 96 06/08/24 02:05 69 16 149/61 97 06/08/24 00:35 70 18 161/61 96 06/07/24 23:22 61 16 166/64 94 L 06/07/24 22:20 18 06/07/24 22:15 98.0 F 18 172/74 93 L Intake and Output 06/07/24 06/08/24 06/08/24 22:59 06:59 14:59 Intake Total 350 Output Total 3200 Balance -2850 Intake: Oral 350 Output: Urine 3200 Other: Weight 61.235 kg Results 06/07/24 22:36 06/07/24 22:36 Cardiac Enzymes 06/07/24 06/07/24 Range/Units 22:36 22:36 AST 33 (14-36) U/L Troponin I 0.024 (0.000-0.034) ng/mL Coagulation 06/07/24 Range/Units 22:36 PT 11.7 (10.0-12.5) sec APTT 23.0 (22.0-30.0) sec CBC 06/07/24 Range/Units 22:36 WBC 4.4 (3.8-10.6) k/uL RBC 3.44 L (3.80-5.40) m/uL Hgb 10.4 L (11.4-16.0) gm/dL Hct 35.6 (34.0-46.0) % Plt Count 361 (150-450) k/uL Comprehensive Metabolic Panel 06/07/24 Range/Units 22:36 Sodium 135 L (137-145) mmol/L Potassium 4.1 (3.5-5.1) mmol/L Chloride 101 (98-107) mmol/L Carbon Dioxide 26 (22-30) mmol/L BUN 17 (7-17) mg/dL Creatinine 0.72 (0.52-1.04) mg/dL Glucose 114 H (74-99) mg/dL Calcium 8.8 (8.4-10.2) mg/dL AST 33 (14-36) U/L ALT 16 (4-34) U/L Alkaline Phosphatase 208 H (38-126) U/L Total Protein 7.1 (6.3-8.2) g/dL Albumin 3.7 (3.5-5.0) g/dL Current Medications Generic Name Dose Route Start Last Admin Trade Name Freq PRN Reason Stop Dose Admin Acetaminophen 650 mg 06/08/24 00:57 Acetaminophen Tab 325 Mg Tab PO Q6HR PRN Mild Pain or Fever > 100.5 Acetaminophen 1,000 mg 06/08/24 21:00 Acetaminophen Tab 500 Mg Tab PO HS MAGDY Amlodipine Besylate 5 mg 06/08/24 21:00 Amlodipine 5 Mg Tab PO HS MAGDY Apixaban 5 mg 06/08/24 09:00 06/08/24 09:45 Apixaban 5 Mg Tab PO 5 mg BID MAGDY Administration Protocol Cyclosporine 1 drops 06/08/24 09:00 06/08/24 10:16 Cyclosporine 0.05% Ophth 0.4 Ml Droperette BOTH EYES 1 drops BID MAGDY Administration Dextrose/Water 25 ml 06/08/24 08:15 Dextrose 50% Syringe 50 Ml IVP PER PROTOCOL PRN Hypoglycemia Protocol Dextrose/Water 50 ml 06/08/24 08:15 Dextrose 50% Syringe 50 Ml IVP PER PROTOCOL PRN Hypoglycemia Protocol Diphenhydramine HCl 50 mg 06/08/24 21:00 Diphenhydramine 25 Mg Cap PO HS MAGDY Furosemide 40 mg 06/08/24 09:00 06/08/24 09:46 Furosemide 10 Mg/Ml 4 Ml Vial IV 40 mg Q12HR MAGDY Administration Insulin Human Lispro 0 unit 06/08/24 12:30 Insulin Lispro (Humalog) 100 Unit/Ml 10 Ml Vl SQ ACHS MAGDY Protocol Metoprolol Tartrate 25 mg 06/08/24 09:00 06/08/24 09:45 Metoprolol Tartrate 25 Mg Tab PO 25 mg BID MAGDY Administration Naloxone HCl 0.2 mg 06/08/24 00:57 Naloxone 0.4 Mg/Ml 1 Ml Vial IV Q2M PRN Opioid Reversal Intake and Output 06/07/24 06/08/24 06/08/24 22:59 06:59 14:59 Intake Total 350 Output Total 3200 Balance -2850 Intake: Oral 350 Output: Urine 3200 Other: Weight 61.235 kg 06/07/24 22:36 06/07/24 22:36
[2024-06-08 15:07] LABS: Chol/HDL Ratio 1.89 Ratio; GGT 48 U/L (0-38); LDL Cholesterol,Calculated 63.9 mg/dL (0.0-131.0); VLDL Calculation 18.82 mg/dL (5.00-40.00)
--- NOTE | 2024-06-08 17:49 | CT ---
EXAMINATION TYPE: CT chest angio for PE DATE OF EXAM: 06/08/2024 5:25 PM COMPARISON: Chest radiograph from 06/07/2024 chest radiograph.1 CLINICAL INDICATION: Female, 79 years old with history of elevated D-Dimers; Hx of dyspnea; Elevated dimer, hx dyspnea TECHNIQUE/CONTRAST: CTA scan of the thorax is performed with IV Contrast, patient injected with 100 mL of Isovue 370, MIP images are created and reviewed these are created on a separate workstation.. CT DLP: 256.7 mGycm, Automated exposure control for dose reduction was used. FINDINGS: Lungs/Pleura: No pneumothorax. No focal consolidation. Small bowel left moderate pleural effusion. Th ere is associated atelectasis. Pulmonary vascular interlobular septal thickening. Airway: Large airways are patent. Heart: Cardiomegaly is demonstrated. Moderate to severe coronary artery calcifications present. Vasculature: There is no evidence for a filling defect within the pulmonary vasculature to suggest ac arely pulmonary embolism. The pulmonary artery is of normal size. Mediastinum: No gross evidence of adenopathy. Musculoskeletal: Moderate disc degeneration changes are present throughout the thoracolumbar spine se condary to osteophyte formation and facet joint arthropathy. Soft Tissues/lymph nodes: Unremarkable. Lower neck: No significant findings. Upper Abdomen: Bilateral renal cortical probable cyst. IMPRESSION: 1. No evidence of pulmonary embolism. 2. Cardiomegaly with Moderate right and small left pleural effusion with pulmonary vasculature conges tion correlate for congestive heart failure/volume overload. 3. Moderate to severe are coronary artery atherosclerosis. Follow up recommendations for incidental pulmonary nodules, if there are any, are per [employer] or [employer]. https://radiopaedia.org/articles/fxtrnudbxg-dprjkvk-bvueqmfav-jugwfs-ejkebnxfyfavgls-[email or web address]?lang=us [facility], , 06/08/2024 5:47 PM
[2024-06-08 18:09] LABS: Glucose,Whole Blood 156 mg/dL (70-110)
[2024-06-08] MEDS: METOPROLOL TARTRATE 50 MG TAB PO STA (18:45)
[2024-06-08] MEDS: ACETAMINOPHEN TAB 500 MG TAB PO SCH (20:38)
[2024-06-08] MEDS: diphenhydrAMINE 25 MG CAP PO SCH (20:40)
[2024-06-08] MEDS ORDERED: amLODIPine 5 MG TAB PO SCH (21:00)
[2024-06-08 21:42] LABS: Glucose,Whole Blood 116 mg/dL (70-110)
[2024-06-09 07:40] LABS: Glucose 90 mg/dL (74-99); Sodium 135 mmol/L (137-145)
[2024-06-09 07:41] LABS: African American GFR (CKD) 60 (>60 ml/min/1.73 sqM); Anion Gap 2 mmol/L; Blood Urea Nitrogen 13 mg/dL (7-17); Calcium 8.6 mg/dL (8.4-10.2); Carbon Dioxide 39 mmol/L (22-30); Chloride 94 mmol/L (98-107); Non-African American GFR(CKD) 52 (>60 ml/min/1.73 sqM); Potassium 4.1 mmol/L (3.5-5.1)
[2024-06-09 07:41] LABS: Glucose,Whole Blood 91 mg/dL (70-110)
[2024-06-09 07:58] LABS: Anisocytosis Slight; Basophils % (A) 0 %; Eosinophils # (A) 0.1 k/uL (0-0.7); Eosinophils % (A) 2 %; HCT 36.9 % (34.0-46.0); HGB 10.9 gm/dL (11.4-16.0); Hypochromasia Marked; Lymphocytes # (A) 0.6 k/uL (1.0-4.8); Lymphocytes % (A) 21 %; MCH 30.4 pg (25.0-35.0); MCHC 29.6 g/dL (31.0-37.0); MCV 102.6 fL (80.0-100.0); Macrocytosis Moderate; Mean Platelet Volume 7.2; Monocytes # (A) 0.3 k/uL (0-1.0); Monocytes % (A) 11 %; Neutrophils # (A) 1.9 k/uL (1.3-7.7); Neutrophils % (A) 63 %; Platelet Count 337 k/uL (150-450); RDW 17.5 % (11.5-15.5)
[2024-06-09] MEDS: METOPROLOL TARTRATE 50 MG TAB PO SCH (08:07)
[2024-06-09] MEDS: FUROSEMIDE 40 MG TAB PO SCH (08:07)
--- NOTE | 2024-06-09 08:11 | CA ---
Transthoracic Echo Report Name: Marta Merritt Age: 79 Gender: F : 1945 Exam Date: 06/08/2024 14:10 Exam Location: [facility] Ht (in): 64 Wt (lb): 135 Ordering Physician: Emma Storm Attending/Referring Phys: [id number], Emeterio Wire Drawing Setter Lluvia Villanueva RDCS Procedure CPT: Indications: LVF, RVSP Cardiac Hx: Limited for LVF and RVSP Technical Quality: Good Contrast 1: Total Dose (mL): Contrast 2: Total Dose (mL): MEASUREMENTS (Male / Female) Normal Values 2D ECHO LV Diastolic Diameter PLAX 4.3 cm 4.2 - 5.9 / 3.9 - 5.3 cm LV Systolic Diameter PLAX 2.8 cm IVS Diastolic Thickness 0.9 cm 0.6 - 1.0 / 0.6 - 0.9 cm LVPW Diastolic Thickness 0.8 cm 0.6 - 1.0 / 0.6 - 0.9 cm LV Relative Wall Thickness 0.4 LV Diastolic Volume MOD 4C 78.0 cm??? LV Systolic Volume MOD 4C 33.0 cm??? LV Ejection Fraction MOD 4C 57.7 % LV Cardiac Index MOD 4C 1941.2 cm???/min???m??? LV Diastolic Length 4C 7.1 cm LV Systolic Length 4C 6.0 cm LV Cardiac Index 4C AL 1921.3 cm???/min???m??? LV Diastolic Volume MOD 2C 68.3 cm??? LV Systolic Volume MOD 2C 27.5 cm??? LV Ejection Fraction MOD 2C 59.7 % LV Cardiac Index MOD 2C 1760.1 cm???/min???m??? LV Diastolic Length 2C 6.9 cm LV Systolic Length 2C 6.1 cm LV Cardiac Index 2C AL 1984.3 cm???/min???m??? DOPPLER TR Peak Velocity 429.3 cm/s TR Peak Gradient 73.7 mmHg Right Atrial Pressure 5.0 mmHg Pulmonary Artery Systolic Pressu 78.7 mmHg Right Ventricular Systolic Press 78.7 mmHg FINDINGS Left Ventricle Left ventricular ejection fraction is estimated at 55-60 %. Left ventricular cavity size normal. Left ventricular wall thickness normal. No obvious regional wall motion abnormalities. Right Ventricle Moderate to severe right ventricular dilatation with mildly reduced function at the apex. Severe pulmonary hypertension. Right Atrium Right atrial dilatation. Left Atrium Left atrial dilatation. Mitral Valve Mitral valve thickened. Mitral annular calcification. Aortic Valve Trileaflet aortic valve. Tricuspid Valve Structurally normal tricuspid valve. Moderate tricuspid regurgitation. Pulmonic Valve Structurally normal pulmonic valve. Pericardium No pericardial effusion. Aorta CONCLUSIONS LV size and systolic function is normal. Right ventricle is dilated with moderate to severe tricuspid regurgitation and moderate to severe pulmonary hypertension. Mitral valve leaflets do not show any significant restriction. No pericardial effusion Previewed by: Dr. Macey Stallings MD (Electronically Signed) Final Date: 09 June 2024 08:10
--- NOTE | 2024-06-09 11:39 | P.PN ---
Subjective HISTORY OF PRESENT ILLNESS: This is an 79-year-old female patient of Dr. MAAME Stallings with past medical history of hypertension, hyperlipidemia, Sjogren's disease, rheumatoid arthritis, RV enlargement secondary untreated sleep apnea. Patient had a recent syncopal episode when she was on the toilet landing on her left hip and required surgical intervention performed on 05/07/2024 followed by open reduction of dislocation of the same hip. During that hospitalization, patient was found to be in A-fib with RVR. She now presents to the hospital with difficulty breathing that has been going on for about 1 week. Patient had increasing difficulty with breathing as well as lower leg swelling. Patient has been started on IV Lasix. Patient was last seen in the office on 05/2024 at that time amiodarone was decreased to once daily dosing with plan to discontinue on her next visit. Cardizem was discontinued. Patient was scheduled for Lexiscan stress test which patient states is scheduled for this week in the office. -EKG: Sinus rhythm with PACs -Chest x-ray: Asymmetrical edema versus pneumonia, worse on the right. Small to moderate pleural effusions more on the right. -Laboratory studies: WBC 4.4, hemoglobin 10.4. D-dimer 2.76. Sodium 135, potassium 4.1, creatinine 0.72. -Home cardiac medications: Amiodarone 200 mg daily, amlodipine 5 mg at bedtime, Eliquis 5 mg twice daily, Lopressor 100 mg twice daily 06/09/2024 Patient examined this morning in the emergency room. Patient currently denies chest pain or pressure. She denies shortness of breath at the time of examination. Vital signs are stable. She is maintaining sinus mechanism. Echocardiogram completed revealing ejection fraction 55 to 60%, no obvious regional wall motion abnormalities, severe pulmonary hypertension, and moderate TR. Mitral valve leaflets do not show any significant restriction. PHYSICAL EXAM: VITAL SIGNS: Reviewed. GENERAL: Well-developed in no acute distress. NECK: Supple. No JVD or thyromegaly LUNGS: Respirations even and unlabored. Lungs essentially clear to auscultation bilaterally. HEART: Regular rate and rhythm. S1 and S2 heard. EXTREMITIES: Normal range of motion. No clubbing or cyanosis. Peripheral pulses intact. No lower extremity edema ASSESSMENT: Acute heart failure with preserved EF Severe pulmonary hypertension Paroxysmal atrial fibrillation currently in sinus rhythm Hypertension Hyperlipidemia Sjogren's disease Rheumatoid arthritis RV enlargement secondary to untreated sleep apnea Recent left hip arthroplasty and open reduction of dislocated left hip in April PLAN: Discontinue IV Lasix. Begin oral Lasix 40 mg twice a day Continue metoprolol tartrate 100 mg twice a day Continue losartanhydrochlorothiazide and amiodarone 200 mg daily Hold Eliquis this evening and tomorrow morning N.p.o. at midnight Patient to undergo right heart cath tomorrow with Dr. Stallings Further recommendations pending patient course Nurse practitioner note has been reviewed by physician. Signing provider agrees with the documented findings, assessment, and plan of care documented by [employer] as a scribe. Objective - Vital Signs Vital signs: Vital Signs Temp 98.0 F 06/07/24 22:15 Pulse 60 06/09/24 10:04 Resp 15 06/09/24 10:04 BP 138/58 06/09/24 10:04 Pulse Ox 97 06/09/24 10:04 FiO2 - Labs CBC & Chem 7: 06/09/24 06:42 06/09/24 06:42 Labs: Abnormal Lab Results - Last 24 Hours (Table) 06/08/24 06/08/24 06/08/24 Range/Units 08:26 11:32 11:39 WBC (3.8-10.6) k/uL RBC (3.80-5.40) m/uL Hgb (11.4-16.0) gm/dL MCV (80.0-100.0) fL MCHC (31.0-37.0) g/dL RDW (11.5-15.5) % Lymphocytes # (1.0-4.8) k/uL D-Dimer 2.76 H (<0.60) mg/L FEU Sodium (137-145) mmol/L Chloride (98-107) mmol/L Carbon Dioxide (22-30) mmol/L POC Glucose (mg/dL) 117 H (70-110) mg/dL GGT 48 H (0-38) U/L HDL Cholesterol 93.30 H (40.00-60.00) mg/dL 06/08/24 06/08/24 06/09/24 Range/Units 18:07 21:40 06:42 WBC 3.0 L (3.8-10.6) k/uL RBC 3.60 L (3.80-5.40) m/uL Hgb 10.9 L (11.4-16.0) gm/dL MCV 102.6 H (80.0-100.0) fL MCHC 29.6 L (31.0-37.0) g/dL RDW 17.5 H (11.5-15.5) % Lymphocytes # 0.6 L (1.0-4.8) k/uL D-Dimer (<0.60) mg/L FEU Sodium (137-145) mmol/L Chloride (98-107) mmol/L Carbon Dioxide (22-30) mmol/L POC Glucose (mg/dL) 156 H 116 H (70-110) mg/dL GGT (0-38) U/L HDL Cholesterol (40.00-60.00) mg/dL 06/09/24 Range/Units 06:42 WBC (3.8-10.6) k/uL RBC (3.80-5.40) m/uL Hgb (11.4-16.0) gm/dL MCV (80.0-100.0) fL MCHC (31.0-37.0) g/dL RDW (11.5-15.5) % Lymphocytes # (1.0-4.8) k/uL D-Dimer (<0.60) mg/L FEU Sodium 135 L (137-145) mmol/L Chloride 94 L (98-107) mmol/L Carbon Dioxide 39 H (22-30) mmol/L POC Glucose (mg/dL) (70-110) mg/dL GGT (0-38) U/L HDL Cholesterol (40.00-60.00) mg/dL
[2024-06-09 11:49] LABS: Glucose,Whole Blood 89 mg/dL (70-110)
--- NOTE | 2024-06-09 16:02 | P.PN ---
Subjective Progress Note Date: 06/09/24 Hospital Course: Patient is a 79-year-old female with a history of A-fib on Eliquis, hypertension, breast cancer status post lumpectomy, Sjogren's disease and recent left total hip arthroplasty on 05/07/[address] Melendez presented to ER on 06/07/2024 for progressively worsening dyspnea since 1 week. Patient reports exertional dyspnea since 1 week associated with bilateral leg swelling, orthopnea and PND. Patient had recent follow-up with orthopedic Dr. Melendez and cardiology Dr. Stallings. Patient denies chest pain, abdominal pain, nausea, vomiting, diarrhea or constipation, fever, chills, numbness/weakness/tingling in upper or lower extremities. Patient denies any recent travel or upper respirat ory tract infection. Initial evaluation in the ER shows WBC 4.4, hemoglobin 10.4, MCV 103.5, sodium 135, potassium 4.1, chloride 101, bicarb 26, BUN 17, creatinine 0.72, glucose 114, ALP 208, AST 33, ALT 16, NT proBNP 8130. D-dimer 2.76 mg/L Chest x-ray done in the ER shows moderate bilateral pleural effusions with diffuse airspace opacities. EKG done in the ER shows sinus rhythm with occasional supraventricular premature complexes with heart rate of 65 bpm, IN interval 144 ms, QRS duration 78 ms, QTc duration 420 ms. Normal R wave progression. No ST to T wave changes noted. Vital signs on arrival shows 98.0 F, pulse rate 61, respiratory 18, blood pressure 172/74, oxygen saturation 93% on room air. Subsequent vital signs show pulse rate 66, respiratory rate 18, blood pressure 1 5462, oxygen saturation 97% on 2 L via nasal cannula. Subjective: Patient seen and examined at the bedside. No acute events overnight. Patient to undergo right heart catheterization tomorrow a.m. Patient denies shortness of breath and chest pain. All Systems reviewed and pertinent positives and negatives noted in HPI, all other symptoms are negative Objective: Vital signs reviewed General: non toxic, no distress, appears at stated age, normal weight Derm: no unusual rashes/lesions, warm Head: atraumatic, normocephalic, symmetric Eyes: EOMI, no lid lag, anicteric sclera, pupils equal round reactive to light ENT: Nose and ears atraumatic Neck: No cervical lymphadenopathy, trachea midline, supple Mouth: no lip lesion, mucus membranes moist Cardiovascular: S1S2 reg, no murmur, positive dorsalis pedis pulse bilateral, 1+ bilateral lower extremity edema Lungs: Mild crackles on the left lung base, no wheezing, no use of accessory muscles. Abdominal: soft, nontender to palpation, no guarding Ext: muscle strength 5 out of 5 in all 4 extremities grossly, no gross muscle atrophy, no contractures, Neuro: CN II-XI grossly intact, no gross focal neuro deficits Psych: Alert, oriented, appropriate affect Data reviewed today: Pertinent Labs: WBC 3.0, hemoglobin 10.9, MCV 102.6, sodium 135, potassium 4.1, chloride 94, bicarb 29, BUN 13, creatinine 1.02 Images: No new imaging Assessment and Plan: #Acute diastolic congestive heart failure #Severe pulmonary hypertension Oxygen therapy as needed IV Lasix have been discontinued Start Lasix 40 mg p.o. twice daily Echo done on 05/12/2024 shows LVEF 60 to 65%. Moderate mitral stenosis with severe pulmonary hypertension. Limited echo done on 06/08/2024 shows LVEF 55 to 60%. Moderate to severe TR with moderate to severe pulmonary hypertension Cardiology on board Initiate GDMT: Metoprolol increased to 100 mg p.o. twice daily, Hyzaar 50-12.5 mg p.o. daily consider adding SGLT2i, and MRA Continue with amiodarone 200 mg p.o. daily I's and O's and daily weights Fluid restriction to 1500 mL/day Lipid panel: LDL 63.9, HDL 93.3, triglyceride 94.10, cholesterol 176 TSH 0.615 on 05/12/2024 Right heart catheterization tomorrow a.m. Consult pulmonology #Elevated D-dimer, PE ruled out CT chest angio done on 06/08/2024 negative for pulm embolism Continue with Eliquis 5 mg p.o. twice daily #Elevated alkaline phosphatase GGT 48 Consider right upper quadrant ultrasound if GGT is increased #Hyperglycemia Accu-Cheks and sliding scale insulin HbA1c Monitor for hypoglycemia #Macrocytic anemia Vitamin B12 579 and folate 40 on 04/28/2024 Continue monitor Chronic conditions: Hypertension: Resume Norvasc 5 mg p.o. at bedtime Atrial fibrillation: Resume Eliquis 5 mg twice daily and metoprolol Order CBC and BMP tomorrow a.m. DVT prophylaxis: Eliquis 5 mg p.o. twice daily GI prophylaxis: None F: None E: Replete as needed N: Heart healthy diet A: Ambulatory at baseline The patient is admitted with an anticipated less than than 2 midnight stay for evaluation of CHF CODE STATUS: Full code Discussed with: Patient Anticipated discharge place: Pending clinical course Dictation was produced using [employer] dictation software. Please excuse any grammatical, word or spelling errors. Attestation I have seen and examined this patient with my resident , discussed the same with the resident/YESSY, and agree with the dictator's assessment and plan as written GENERAL: The patient is alert and oriented x3, not in any acute distress. Well developed, well nourished. HEENT: Pupils are round and equally reacting to light. EOMI. No scleral icterus. No conjunctival pallor. Normocephalic, atraumatic. No pharyngeal erythema. No thyromegaly. CARDIOVASCULAR: S1 and S2 present. No murmurs, rubs, or gallops. PULMONARY: Chest is clear to auscultation, no wheezing or crackles. ABDOMEN: Soft, nontender, nondistended, normoactive bowel sounds. No palpable organomegaly. MUSCULOSKELETAL: No joint swelling or deformity. EXTREMITIES: No cyanosis, clubbing, or pedal edema. NEUROLOGICAL: Gross neurological examination did not reveal any focal deficits. SKIN: No rashes. Dr. Dale awad Objective - Vital Signs Vital signs: Vital Signs Temp 98.0 F 06/07/24 22:15 Pulse 75 06/09/24 15:51 Resp 20 06/09/24 15:51 BP 135/60 06/09/24 15:51 Pulse Ox 96 06/09/24 15:51 FiO2 - Labs CBC & Chem 7: 06/10/24 06:24 06/10/24 06:24 Labs: Abnormal Lab Results - Last 24 Hours (Table) 06/08/24 06/08/24 06/09/24 Range/Units 18:07 21:40 06:42 WBC 3.0 L (3.8-10.6) k/uL RBC 3.60 L (3.80-5.40) m/uL Hgb 10.9 L (11.4-16.0) gm/dL MCV 102.6 H (80.0-100.0) fL MCHC 29.6 L (31.0-37.0) g/dL RDW 17.5 H (11.5-15.5) % Lymphocytes # 0.6 L (1.0-4.8) k/uL Sodium (137-145) mmol/L Chloride (98-107) mmol/L Carbon Dioxide (22-30) mmol/L POC Glucose (mg/dL) 156 H 116 H (70-110) mg/dL 06/09/24 Range/Units 06:42 WBC (3.8-10.6) k/uL RBC (3.80-5.40) m/uL Hgb (11.4-16.0) gm/dL MCV (80.0-100.0) fL MCHC (31.0-37.0) g/dL RDW (11.5-15.5) % Lymphocytes # (1.0-4.8) k/uL Sodium 135 L (137-145) mmol/L Chloride 94 L (98-107) mmol/L Carbon Dioxide 39 H (22-30) mmol/L POC Glucose (mg/dL) (70-110) mg/dL
[2024-06-09 16:59] LABS: Glucose,Whole Blood 134 mg/dL (70-110)
[2024-06-09 20:00] LABS: Glucose,Whole Blood 138 mg/dL (70-110)
--- NOTE | 2024-06-10 01:55 | P.CNPUL ---
History of Present Illness Consult date: 06/10/24 Requesting physician: Anthony Rasheed Reason for consult: pulmonary hypertension Chief complaint: Difficulty in breathing History of present illness: Patient is an 79-year-old female with past medical history significant for Sjogren's disease, breast cancer with previous lumpectomy, hypertension, atrial fibrillation, and left hip total arthroplasty. Of note, patient had a fall in April, resulting in dislocation of left hip total arthroplasty. Following this, had open reduction of the left total hip arthroplasty. During that hospitalization, found to be in new onset atrial fibrillation with RVR. She is anticoagulated on Eliquis. Also, takes amiodarone 200 mg p.o. daily and metoprolol 100 mg p.o. twice daily. Echocardiogram done April, showing preserved left ventricular ejection fraction, moderate mitral stenosis, and severe pulmonary hypertension. Return to the emergency department back on 06/07/2024 with chief complaint of several days of worsening dyspnea. Associated bilateral lower extremity swelling. Denies chest pain. States she has been compliant with her Eliquis. Denied infectious symptoms. Workup in the emergency department including cardiomegaly, pulmonary vascular congestion, and small to moderate-sized bilateral pleural effusions. CBC: WBC count 3, hemoglobin 10.9, hematocrit 36.9, platelets 337. CMP: Sodium 135, potassium 4.1, chloride 94, serum bicarb 39, BUN 13, creatinine 1.02, glucose 138. NT proBNP elevated at 8130. Troponin 0.024. EKG sinus mechanism on arrival, rate 65 bpm, frequent PACs, no obvious acute ischemic changes. Elevated D-dimer in setting CT angio protocol did which did not show any filling defects consistent with pulmonary embolism. There is cardiomegaly with moderate right and small left pleural effusion with pulmonary vascular congestion suggestive of congestive heart failure/volume overload. Moderate to severe coronary artery atherosclerosis. Follow-up echocardiogram this admission again estimating a preserved left ventricular ejection fraction, dilated right ventricle with moderate to severe tricuspid regurgitation and moderate-severe pulmonary hypertension. Patient reportedly scheduled for heart catheterization tomorrow. Patient currently being evaluated in the cardiac stepdown unit. She is resting comfortably on 2 L/min nasal cannula. No respiratory distress. Currently, receiving p.o. Lasix 40 mg twice daily. She states she is voiding often. She has lower extremity swelling. Lower extremity venous Doppler negative for DVTs bilaterally. Endorses orthopnea. Denies any chest pain, heart palpitations, lightheadedness or syncopal events since April. Denies infectious-like symptoms. Current vital signs: Temperature 98 F, heart rate 60 bpm, blood pressure 134/72 mmHg, nontachypneic, SpO2 was recorded at 95% on 2 L/min nasal cannula. Review of Systems Constitutional: Reports fatigue, Denies chills, Denies fever, Denies poor appetite, Denies weight gain, Denies weight loss Ears, nose, mouth and throat: Denies headache, Denies nasal congestion, Denies nasal discharge, Denies post-nasal drip, Denies sinus pain, Denies sinus pressure, Denies sore throat Cardiovascular: Reports dyspnea on exertion, Reports leg edema, Reports orthopnea, Denies chest pain, Denies lightheadedness, Denies palpitations, Denies paroxysmal nocturnal dyspnea, Denies syncope Respiratory: Denies congestion, Denies cough, Denies cough with sputum, Denies hemoptysis, Denies home oxygen Gastrointestinal: Denies abdominal pain, Denies change in bowel habits, Denies diarrhea, Denies hematemesis, Denies hematochezia, Denies melena, Denies nausea, Denies vomiting Genitourinary: Denies dysuria Musculoskeletal: Denies limitation of motion Integumentary: Denies rash, Denies unusual bruising Neurological: Denies seizures, Denies syncope Psychiatric: Denies anxiety, Denies depression Past Medical History Past Medical History: Atrial Fibrillation, Cancer, Hypertension Additional Past Medical History / Comment(s): Shogren's disease, breast cancer History of Any Multi-Drug Resistant Organisms: None Reported Past Surgical History: Joint Replacement Additional Past Surgical History / Comment(s): L hip replacement 2024, hip dislocation repair. lumpectomy Past Anesthesia/Blood Transfusion Reactions: No Reported Reaction Past Psychological History: No Psychological Hx Reported Smoking Status: Former smoker Past Alcohol Use History: Occasional Past Drug Use History: None Reported Medications and Allergies Home Medications Medication Instructions Recorded Confirmed Type cycloSPORINE 0.05% OPHTH SOLN 1 drop BOTH EYES BID 05/11/24 06/08/24 History [Restasis] Apixaban [Eliquis] 5 mg PO BID 30 Days #60 tab 05/16/24 06/08/24 Rx Metoprolol Tartrate [Lopressor] 100 mg PO BID 30 Days #120 tab 05/16/24 06/08/24 Rx Acetaminophen/Diphenhydramine 2 tab PO HS 06/08/24 06/08/24 History [Tylenol PM 500-25mg] Amiodarone [Cordarone] 200 mg PO DAILY 06/08/24 06/08/24 History amLODIPine [Norvasc] 5 mg PO HS 06/08/24 06/08/24 History Allergies Allergy/AdvReac Type Severity Reaction Status Date / Time No Known Allergies Allergy Verified 06/08/24 06:44 Physical Exam Vitals: Vital Signs Temp Pulse Pulse Resp BP BP Pulse Ox 06/09/24 23:25 98.0 F 60 134/72 95 06/09/24 19:59 98.3 F 80 18 138/61 95 06/09/24 18:24 20 06/09/24 15:51 75 20 135/60 96 06/09/24 12:07 63 16 142/58 93 L 06/09/24 10:04 60 15 138/58 97 06/09/24 07:31 71 17 140/64 06/09/24 06:00 61 16 140/64 95 06/09/24 04:00 61 18 147/74 93 L Intake and Output 06/09/24 06/09/24 06/10/24 14:59 22:59 06:59 Intake Total 190 Output Total 1850 Balance -1660 Intake: IV 10 Invasive Line 1 10 Oral 180 Output: Urine 1850 Other: Voiding Method External Catheter Weight 61.235 kg GENERAL EXAM: Alert, 79-year-old white female, comfortable in no apparent distress. HEAD: Normocephalic and atraumatic EYES: Normal reaction of pupils, equal size. NOSE: Clear with pink turbinates. THROAT: No erythema or exudates. NECK: No masses, no JVD. CHEST: No chest wall deformity. LUNGS: Equal air entry wit diminished bibasilar lung sounds. On 2 L/min nasal cannula. No conversational dyspnea or accessory muscle use.. CVS: S1 and S2 normal with no audible murmur, regular rhythm. No extra heart sounds ABDOMEN: No hepatosplenomegaly, active bowel sounds, no guarding or rigidity. SPINE: No scoliosis or deformity SKIN: No rashes CENTRAL NERVOUS SYSTEM: No focal deficits, tone is normal in all 4 extremities. EXTREMITIES: There is 2+ bilateral lower extremity edema. No clubbing, or cyanosis. Peripheral pulses are intact. Results - Laboratory Findings CBC and BMP: 06/09/24 06:42 06/09/24 06:42 PT/INR, D-dimer PT 11.7 sec (10.0-12.5) 06/07/24 22:36 INR 1.1 (<1.2) 06/07/24 22:36 D-Dimer 2.76 mg/L FEU (<0.60) H 06/08/24 11:32 Abnormal lab findings: Abnormal Labs 06/07/24 06/07/24 06/08/24 22:36 22:36 08:26 WBC RBC 3.44 L Hgb 10.4 L MCV 103.5 H MCHC 29.2 L RDW 17.6 H Lymphocytes # Lymphocytes # (Manual) 0.62 L Metamyelocytes # (Man) 0.04 H Nucleated RBCs 1 H D-Dimer Sodium 135 L Chloride Carbon Dioxide Glucose 114 H POC Glucose (mg/dL) GGT 48 H Alkaline Phosphatase 208 H HDL Cholesterol 93.30 H 06/08/24 06/08/24 06/08/24 11:32 11:39 18:07 WBC RBC Hgb MCV MCHC RDW Lymphocytes # Lymphocytes # (Manual) Metamyelocytes # (Man) Nucleated RBCs D-Dimer 2.76 H Sodium Chloride Carbon Dioxide Glucose POC Glucose (mg/dL) 117 H 156 H GGT Alkaline Phosphatase HDL Cholesterol 06/08/24 06/09/24 06/09/24 21:40 06:42 06:42 WBC 3.0 L RBC 3.60 L Hgb 10.9 L MCV 102.6 H MCHC 29.6 L RDW 17.5 H Lymphocytes # 0.6 L Lymphocytes # (Manual) Metamyelocytes # (Man) Nucleated RBCs D-Dimer Sodium 135 L Chloride 94 L Carbon Dioxide 39 H Glucose POC Glucose (mg/dL) 116 H GGT Alkaline Phosphatase HDL Cholesterol 06/09/24 06/09/24 16:58 19:52 WBC RBC Hgb MCV MCHC RDW Lymphocytes # Lymphocytes # (Manual) Metamyelocytes # (Man) Nucleated RBCs D-Dimer Sodium Chloride Carbon Dioxide Glucose POC Glucose (mg/dL) 134 H 138 H GGT Alkaline Phosphatase HDL Cholesterol - Diagnostic Findings Chest x-ray: image reviewed CT scan - chest: image reviewed Assessment and Plan Assessment: Acute exacerbation of diastolic congestive heart failure, chest CT angio protocol did which did not show any filling defects consistent with pulmonary embolism. There is cardiomegaly with moderate right and small left pleural effusion with pulmonary vascular congestion suggestive of congestive heart failure/volume overload. Moderate to severe coronary artery atherosclerosis. NT-proBNP significantly elevated. Acute hypoxemic respiratory failure, currently on 2 L/min nasal cannula, secondary to above History of heart failure with preserved ejection fraction, echocardiogram done April, showing preserved left ventricular ejection fraction, moderate mitral stenosis, and severe pulmonary hypertension. RVSP 78 mmHg Paroxysmal atrial fibrillation, currently sinus mechanism, anticoagulated on Eliquis, also receiving metoprolol 100 mg twice daily and amiodarone 200 mg daily Hypertension History of left total hip arthroplasty History of fall resulting in dislocation of left hip total arthroplasty. Following this, had open reduction of the left total hip arthroplasty. Elevated D-dimer, chest CT angio did not show any obvious filling defects consistent with pulmonary embolism. Venous Doppler bilateral lower extremities negative for DVTs Anemia, without any obvious acute blood loss History of Sjogren's disease History of breast cancer with previous lumpectomy Plan: Patient reportedly scheduled for heart catheterization tomorrow Continue supplemental oxygen to maintain oxygen saturation 92% or greater Continue p.o. Lasix 40 mg twice daily 1500 mL fluid restriction Case will be discussed with Dr. Rome Further recommendations to follow I have personally seen and examined the patient, performed the documentation and the assessment and plan as written. Number of minutes spent on the visit:20 Time with Patient: Greater than 30
[2024-06-10 06:05] LABS: Glucose,Whole Blood 102 mg/dL (70-110)
[2024-06-10 07:08] LABS: African American GFR (CKD) 68 (>60 ml/min/1.73 sqM); Anion Gap 4 mmol/L; Blood Urea Nitrogen 15 mg/dL (7-17); Calcium 8.8 mg/dL (8.4-10.2); Carbon Dioxide 39 mmol/L (22-30); Chloride 90 mmol/L (98-107); Glucose 84 mg/dL (74-99); Non-African American GFR(CKD) 59 (>60 ml/min/1.73 sqM); Potassium 3.3 mmol/L (3.5-5.1); Sodium 133 mmol/L (137-145)
[2024-06-10 08:08] LABS: Anisocytosis Slight; Basophils % (A) 0 %; Eosinophils # (A) 0.1 k/uL (0-0.7); Eosinophils % (A) 1 %; HGB 10.9 gm/dL (11.4-16.0); Hypochromasia Marked; Lymphocytes # (A) 0.7 k/uL (1.0-4.8); Lymphocytes % (A) 13 %; MCH 30.7 pg (25.0-35.0); MCHC 31.2 g/dL (31.0-37.0); MCV 98.3 fL (80.0-100.0); Macrocytosis Slight; Mean Platelet Volume 6.9; Monocytes # (A) 0.5 k/uL (0-1.0); Monocytes % (A) 9 %; Neutrophils # (A) 3.9 k/uL (1.3-7.7); Neutrophils % (A) 73 %; Platelet Count 344 k/uL (150-450); RBC 3.56 m/uL (3.80-5.40); WBC 5.4 k/uL (3.8-10.6)
--- NOTE | 2024-06-10 09:03 | US ---
EXAMINATION TYPE: US chest DATE OF EXAM: 06/10/2024 COMPARISON: CT CHEST(06/08/2024) CLINICAL INDICATION: Female, 79 years old with history of right pleural effusion; w markings TECHNIQUE: Grayscale imaging of the chest. Targeted ultrasound of the posterior lower right hemithor ax FINDINGS: EXAM MEASUREMENTS: Right Pleural Effusion pocket size: 9.8 cm Right skin surface to fluid distance: 2.8 cm Skin to lung tissue: 3.8cm Right side marked for possible thoracentesis outside the dept. Pulmonologists are able to review the images in the patient?s EMR. IMPRESSIONS: As above [facility], , 06/10/2024 9:01 AM
[2024-06-10] MEDS: SODIUM CHLORIDE 0.9% 250 ML IV ONE (10:02)
[2024-06-10] MEDS ORDERED: Potassium Replacement Protocol 1 EACH MISC MISCELLANE PRN (10:03)
--- NOTE | 2024-06-10 10:05 | P.PN ---
Subjective Progress Note Date: 06/10/24 Hospital Course: Patient is a 79-year-old female with a history of A-fib on Eliquis, hypertension, breast cancer status post lumpectomy, Sjogren's disease and recent left total hip arthroplasty on 05/07/[address] Melendez presented to ER on 06/07/2024 for progressively worsening dyspnea since 1 week. Patient reports exertional dyspnea since 1 week associated with bilateral leg swelling, orthopnea and PND. Patient had recent follow-up with orthopedic Dr. Melendez and cardiology Dr. Stallings. Patient denies chest pain, abdominal pain, nausea, vomiting, diarrhea or constipation, fever, chills, numbness/weakness/tingling in upper or lower extremities. Patient denies any recent travel or upper respirat ory tract infection. Initial evaluation in the ER shows WBC 4.4, hemoglobin 10.4, MCV 103.5, sodium 135, potassium 4.1, chloride 101, bicarb 26, BUN 17, creatinine 0.72, glucose 114, ALP 208, AST 33, ALT 16, NT proBNP 8130. D-dimer 2.76 mg/L Chest x-ray done in the ER shows moderate bilateral pleural effusions with diffuse airspace opacities. EKG done in the ER shows sinus rhythm with occasional supraventricular premature complexes with heart rate of 65 bpm, NC interval 144 ms, QRS duration 78 ms, QTc duration 420 ms. Normal R wave progression. No ST to T wave changes noted. Vital signs on arrival shows 98.0 F, pulse rate 61, respiratory 18, blood pressure 172/74, oxygen saturation 93% on room air. Subsequent vital signs show pulse rate 66, respiratory rate 18, blood pressure 1 5462, oxygen saturation 97% on 2 L via nasal cannula. Subjective: Patient seen and examined at the bedside. No acute events overnight. Patient to undergo right heart catheterization today at 10 AM. Patient currently NPO since midnight. Patient denies shortness of breath and chest pain. Patient con tinues to be on 2 L by nasal cannula. All Systems reviewed and pertinent positives and negatives noted in HPI, all other symptoms are negative Objective: Vital signs reviewed General: non toxic, no distress, appears at stated age, normal weight Derm: no unusual rashes/lesions, warm Head: atraumatic, normocephalic, symmetric Eyes: EOMI, no lid lag, anicteric sclera, pupils equal round reactive to light ENT: Nose and ears atraumatic Neck: No cervical lymphadenopathy, trachea midline, supple Mouth: no lip lesion, mucus membranes moist Cardiovascular: S1S2 reg, no murmur, positive dorsalis pedis pulse bilateral, 1+ bilateral lower extremity edema Lungs: Mild crackles on the left lung base, no wheezing, no use of accessory muscles. Abdominal: soft, nontender to palpation, no guarding Ext: muscle strength 5 out of 5 in all 4 extremities grossly, no gross muscle atrophy, no contractures, Neuro: CN II-XI grossly intact, no gross focal neuro deficits Psych: Alert, oriented, appropriate affect Data reviewed today: Pertinent Labs: WBC 5.4, hemoglobin 10.9, sodium 133, potassium 3.3, chloride 90, bicarb 39 Images: No new imaging Assessment and Plan: #Acute diastolic congestive heart failure #Severe pulmonary hypertension Oxygen therapy as needed IV Lasix have been discontinued Start Lasix 40 mg p.o. twice daily Echo done on 05/12/2024 shows LVEF 60 to 65%. Moderate mitral stenosis with severe pulmonary hypertension. Limited echo done on 06/08/2024 shows LVEF 55 to 60%. Moderate to severe TR with moderate to severe pulmonary hypertension Cardiology on board Initiate GDMT: Metoprolol increased to 100 mg p.o. twice daily, Hyzaar 50-12.5 mg p.o. daily consider adding SGLT2i, and MRA Continue with amiodarone 200 mg p.o. daily I's and O's and daily weights Fluid restriction to 1500 mL/day Lipid panel: LDL 63.9, HDL 93.3, triglyceride 94.10, cholesterol 176 TSH 0.615 on 05/12/2024 Right heart catheterization tomorrow a.m. Consult pulmonology #Hyperkalemia Potassium replacement protocol Monitor BMP #Elevated D-dimer, PE ruled out CT chest angio done on 06/08/2024 negative for pulm embolism Continue with Eliquis 5 mg p.o. twice daily #Elevated alkaline phosphatase GGT 48 Consider right upper quadrant ultrasound if GGT is increased #Hyperglycemia Accu-Cheks and sliding scale insulin HbA1c Monitor for hypoglycemia #Macrocytic anemia Vitamin B12 579 and folate 40 on 04/28/2024 Continue monitor Chronic conditions: Hypertension: Resume Norvasc 5 mg p.o. at bedtime Atrial fibrillation: Resume Eliquis 5 mg twice daily and metoprolol Sjogren's disease: Resume Restasis 0.05% ophthalmic eyedrops Order CBC and BMP tomorrow a.m. DVT prophylaxis: Eliquis 5 mg p.o. twice daily GI prophylaxis: None F: None E: Replete as needed N: Heart healthy diet A: Ambulatory at baseline CODE STATUS: Full code Discussed with: Patient Anticipated discharge place: Pending clinical course Dictation was produced using [employer] dictation software. Please excuse any grammatical, word or spelling errors. Attestation I have seen and examined this patient with my resident , discussed the same with the resident/YESSY, and agree with the dictator's assessment and plan as written GENERAL: The patient is alert and oriented x3, not in any acute distress. Well developed, well nourished. HEENT: Pupils are round and equally reacting to light. EOMI. No scleral icterus. No conjunctival pallor. Normocephalic, atraumatic. No pharyngeal erythema. No thyromegaly. CARDIOVASCULAR: S1 and S2 present. No murmurs, rubs, or gallops. PULMONARY: Chest is clear to auscultation, no wheezing or crackles. ABDOMEN: Soft, nontender, nondistended, normoactive bowel sounds. No palpable organomegaly. MUSCULOSKELETAL: No joint swelling or deformity. EXTREMITIES: No cyanosis, clubbing, or pedal edema. NEUROLOGICAL: Gross neurological examination did not reveal any focal deficits. SKIN: No rashes. Dr. Dale awad Objective - Vital Signs Vital signs: Vital Signs Temp 98.2 F 06/10/24 04:00 Pulse 60 06/10/24 04:00 Resp 18 06/10/24 04:00 BP 152/65 06/10/24 04:00 Pulse Ox 93 L 06/10/24 04:00 FiO2 Intake & Output 06/09/24 06/10/24 06/10/24 18:59 06:59 18:59 Intake Total 180 10 Output Total 1200 1150 Balance -1020 -1140 Weight 61.235 kg 60.5 kg Intake: IV 10 Invasive Line 1 10 Oral 180 Output: Urine 1200 1150 Other: Voiding Method External Catheter External Catheter # Voids 1 - Labs CBC & Chem 7: 06/11/24 06:08 06/11/24 06:08 Labs: Abnormal Lab Results - Last 24 Hours (Table) 06/09/24 06/09/24 06/10/24 Range/Units 16:58 19:52 06:24 RBC 3.56 L (3.80-5.40) m/uL Hgb 10.9 L (11.4-16.0) gm/dL RDW 17.0 H (11.5-15.5) % Lymphocytes # 0.7 L (1.0-4.8) k/uL Sodium (137-145) mmol/L Potassium (3.5-5.1) mmol/L Chloride (98-107) mmol/L Carbon Dioxide (22-30) mmol/L POC Glucose (mg/dL) 134 H 138 H (70-110) mg/dL 06/10/24 Range/Units 06:24 RBC (3.80-5.40) m/uL Hgb (11.4-16.0) gm/dL RDW (11.5-15.5) % Lymphocytes # (1.0-4.8) k/uL Sodium 133 L (137-145) mmol/L Potassium 3.3 L (3.5-5.1) mmol/L Chloride 90 L (98-107) mmol/L Carbon Dioxide 39 H (22-30) mmol/L POC Glucose (mg/dL) (70-110) mg/dL
[2024-06-10] MEDS: MIDAZOLAM 2 MG/2 ML VIAL IVP ONE (10:10)
[2024-06-10] MEDS: HEPARIN SODIUM,PORCINE (1 ML) 2,500 UNIT in SODIUM CHLORIDE 0.9% 250 ML IRRIGATION ONE (10:13)
[2024-06-10] MEDS: LIDOCAINE 1% INJ 10MG/ML (20 ML MDV) SQ ONE (10:13)
[2024-06-10 10:38] LABS: O2 Sat Blood Gas 60.5 %
[2024-06-10 10:39] LABS: O2 Sat Blood Gas 64.1 %
[2024-06-10 10:41] LABS: O2 Sat Blood Gas 67.1 %
[2024-06-10] MEDS ORDERED: MIDAZOLAM 2 MG/2 ML VIAL IV PRN (11:10)
[2024-06-10] MEDS ORDERED: fentaNYL (PF) 50 MCG/ML 5 ML AMP IVP PRN (11:10)
[2024-06-10] MEDS ORDERED: NITROGLYCERIN SL TABS 0.4 MG TAB SUBLINGUAL PRN (11:12)
[2024-06-10] MEDS ORDERED: ALPRAZolam 0.5 MG TAB PO PRN (11:12)
[2024-06-10] MEDS ORDERED: ALPRAZolam 0.25 MG TAB PO PRN (11:12)
[2024-06-10 11:44] LABS: Glucose,Whole Blood 97 mg/dL (70-110)
--- NOTE | 2024-06-10 11:53 | CC ---
CARDIAC CATHETERIZATION REPORT PROCEDURE PERFORMED: Right heart catheterization. INDICATION: Pulmonary hypertension with tricuspid regurgitation and persistent hypoxemia. PROCEDURE NOTE: An intravenous ultrasound-guided access was obtained into the right brachial vein. Using the same brachial cannula, I advanced a small micropuncture wire under fluoroscopic guidance and exchanged the cannula for a 6-Afghan introducer. Using a 6- Afghan balloon tipped catheter, I performed a right heart catheterization. I checked all the pressures in all chambers and pulmonary artery and I also did saturation check in the right atrium, right ventricle, and pulmonary artery. I performed a thermodilution cardiac output study. Then, we calculated the Figueroa cardiac output using an assumed femoral arterial saturation of 95%. The patient tolerated the procedure well. Catheter was taken out. Manual compression was achieved. Hemostasis was secured. The patient tolerated the procedure well. CARDIAC CATHETERIZATION FINDINGS: The right atrial pressure was 4 mmHg, right ventricular pressure was 56/4. Pulmonary arterial pressure was 56/15 with a mean of 27. Wedge pressure was 18 mmHg. V-wave was not prominent. Thermodilution cardiac output was 4.0 L. Femoral arterial saturation was presumed to be 95%. Pulmonary arterial saturation was 67%. The right atrial saturation was 64%. Right ventricular saturation was 60%. There was no oxygen step- up. The Figueroa cardiac output was 4.9 L and thermodilution cardiac output was 4.0 L. The data suggests that pulmonary hypertension is probably related to severe tricuspid regurgitation and also may have a component of diastolic dysfunction. The patient will have a transesophageal echo tomorrow and coronary angiogram on Saturday. Details of the procedure, results, findings and thoughts were discussed with the patient as well as her Joseluis Merritt. The moderate conscious sedation time was 27 minutes. The patient was administered Versed. Oxygen saturation, hemodynamics, and EKG were monitored closely. MMODL / IJN: [id number] /
[2024-06-10] MEDS: ASPIRIN 325 MG TAB PO STA (12:49)
[2024-06-10] MEDS: ATORVASTATIN 80 MG TAB PO STA (12:50)
--- NOTE | 2024-06-10 13:35 | P.PN ---
Subjective HISTORY OF PRESENT ILLNESS: This is an 79-year-old female patient of Dr. MAAME Stallings with past medical history of hypertension, hyperlipidemia, Sjogren's disease, rheumatoid arthritis, RV enlargement secondary untreated sleep apnea. Patient had a recent syncopal episode when she was on the toilet landing on her left hip and required surgical intervention performed on 05/07/2024 followed by open reduction of dislocation of the same hip. During that hospitalization, patient was found to be in A-fib with RVR. She now presents to the hospital with difficulty breathing that has been going on for about 1 week. Patient had increasing difficulty with breathing as well as lower leg swelling. Patient has been started on IV Lasix. Patient was last seen in the office on 05/2024 at that time amiodarone was decreased to once daily dosing with plan to discontinue on her next visit. Cardizem was discontinued. Patient was scheduled for Lexiscan stress test which patient states is scheduled for this week in the office. -EKG: Sinus rhythm with PACs -Chest x-ray: Asymmetrical edema versus pneumonia, worse on the right. Small to moderate pleural effusions more on the right. -Laboratory studies: WBC 4.4, hemoglobin 10.4. D-dimer 2.76. Sodium 135, potassium 4.1, creatinine 0.72. -Home cardiac medications: Amiodarone 200 mg daily, amlodipine 5 mg at bedtime, Eliquis 5 mg twice daily, Lopressor 100 mg twice daily 06/09/2024 Patient examined this morning in the emergency room. Patient currently denies chest pain or pressure. She denies shortness of breath at the time of examination. Vital signs are stable. She is maintaining sinus mechanism. Echocardiogram completed revealing ejection fraction 55 to 60%, no obvious regional wall motion abnormalities, severe pulmonary hypertension, and moderate TR. Mitral valve leaflets do not show any significant restriction. 06/10/2024 Patient underwent right heart cath today with Dr. Stallings revealing right atrial pressure of 4 mmHg, right ventricular pressure 56/4. Pulmonary arterial pre ssure was 56/15 with mean of 27. Wedge pressure was 18 mmHg. V wave was not prominent. Thermodilution cardiac output was 4.0 L. Femoral arterial saturation was presumed to be 95%. Pulmonary artery saturation was 67%. Right atrial saturation was 64%. Right ventricular saturation was 60%. There was no oxygen step up. The thick cardiac output was 4.9 L and thermodilution cardiac output was 4.0 L. PHYSICAL EXAM: VITAL SIGNS: Reviewed. GENERAL: Well-developed in no acute distress. NECK: Supple. No JVD or thyromegaly LUNGS: Respirations even and unlabored. Lungs essentially clear to auscultation bilaterally. HEART: Regular rate and rhythm. S1 and S2 heard. EXTREMITIES: Normal range of motion. No clubbing or cyanosis. Peripheral pulses intact. No lower extremity edema ASSESSMENT: Acute heart failure with preserved EF Severe pulmonary hypertension Moderate tricuspid regurgitation Paroxysmal atrial fibrillation currently in sinus rhythm Hypertension Hyperlipidemia Sjogren's disease Rheumatoid arthritis Recent left hip arthroplasty and open reduction of dislocated left hip in April PLAN: Continue current cardiac medications including amiodarone, Eliquis, Lasix, metoprolol, and losartanhydrochlorothiazide Patient to undergo RAFAT tomorrow, 06/11/2024, with Dr. Odom. N.p.o. at midnight Patient will also undergo left heart cath with Dr. Stallings on 06/12/2024 Further recommendations pending patient course Nurse practitioner note has been reviewed by physician. Signing provider agrees with the documented findings, assessment, and plan of care documented by C[employer]TING [employer]ORCH OPERATOR as a scribe. Objective - Vital Signs Vital signs: Vital Signs Temp 98.1 F 06/10/24 12:00 Pulse 62 06/10/24 12:00 Resp 18 06/10/24 12:00 BP 120/52 06/10/24 12:00 Pulse Ox 100 06/10/24 12:00 FiO2 Intake & Output 06/09/24 06/10/24 06/10/24 18:59 06:59 18:59 Intake Total 180 10 Output Total 1200 1150 Balance -1020 -1140 Weight 61.235 kg 60.5 kg Intake: IV 10 Invasive Line 1 10 Oral 180 Output: Urine 1200 1150 Other: Voiding Method External Catheter External Catheter # Voids 1 - Labs CBC & Chem 7: 06/10/24 06:24 06/10/24 06:24 Labs: Abnormal Lab Results - Last 24 Hours (Table) 06/09/24 06/09/24 06/10/24 Range/Units 16:58 19:52 06:24 RBC 3.56 L (3.80-5.40) m/uL Hgb 10.9 L (11.4-16.0) gm/dL RDW 17.0 H (11.5-15.5) % Lymphocytes # 0.7 L (1.0-4.8) k/uL Sodium (137-145) mmol/L Potassium (3.5-5.1) mmol/L Chloride (98-107) mmol/L Carbon Dioxide (22-30) mmol/L POC Glucose (mg/dL) 134 H 138 H (70-110) mg/dL 06/10/24 Range/Units 06:24 RBC (3.80-5.40) m/uL Hgb (11.4-16.0) gm/dL RDW (11.5-15.5) % Lymphocytes # (1.0-4.8) k/uL Sodium 133 L (137-145) mmol/L Potassium 3.3 L (3.5-5.1) mmol/L Chloride 90 L (98-107) mmol/L Carbon Dioxide 39 H (22-30) mmol/L POC Glucose (mg/dL) (70-110) mg/dL
[2024-06-10] MEDS: BENZOCAINE SPRAY 1 EACH MM SCH (17:00)
[2024-06-10] MEDS: POTASSIUM CHLORIDE ER 20 MEQ TAB.ER PO SCH (17:00)
[2024-06-10] MEDS: POTASSIUM BICARBONATE/CIT AC 20 MEQ TABLET.EFF PO STA (17:24)
[2024-06-10] MEDS: APIXABAN 5 MG TAB PO SCH (20:18)
[2024-06-11 07:00] LABS: Anisocytosis Slight; Basophils % (A) 0 %; Eosinophils % (A) 1 %; HCT 35.8 % (34.0-46.0); HGB 10.7 gm/dL (11.4-16.0); Hypochromasia Marked; Lymphocytes # (A) 0.6 k/uL (1.0-4.8); Lymphocytes % (A) 13 %; MCH 30.2 pg (25.0-35.0); MCHC 29.8 g/dL (31.0-37.0); MCV 101.3 fL (80.0-100.0); Macrocytosis Moderate; Mean Platelet Volume 7.3; Monocytes # (A) 0.5 k/uL (0-1.0); Monocytes % (A) 11 %; Neutrophils # (A) 3.3 k/uL (1.3-7.7); Neutrophils % (A) 71 %; Platelet Count 312 k/uL (150-450); RBC 3.53 m/uL (3.80-5.40); RDW 17.1 % (11.5-15.5); WBC 4.6 k/uL (3.8-10.6)
[2024-06-11] MEDS ORDERED: HEPARIN SODIUM,PORCINE 10,000 UNIT in SODIUM CHLORIDE 0.9% 1,000 ML IRRIGATION PRN (07:00)
[2024-06-11] MEDS ORDERED: HEPARIN SODIUM,PORCINE (1 ML) 2,500 UNIT in SODIUM CHLORIDE 0.9% 250 ML IRRIGATION PRN (07:00)
[2024-06-11 07:14] LABS: African American GFR (CKD) 58 (>60 ml/min/1.73 sqM); Anion Gap 3 mmol/L; Blood Urea Nitrogen 17 mg/dL (7-17); Calcium 8.5 mg/dL (8.4-10.2); Carbon Dioxide 37 mmol/L (22-30); Chloride 91 mmol/L (98-107); Glucose 92 mg/dL (74-99); Non-African American GFR(CKD) 50 (>60 ml/min/1.73 sqM); Potassium 4.2 mmol/L (3.5-5.1); Sodium 131 mmol/L (137-145)
--- NOTE | 2024-06-11 10:40 | P.PN ---
Subjective Progress Note Date: 06/11/24 Hospital Course: Patient is a 79-year-old female with a history of A-fib on Eliquis, hypertension, breast cancer status post lumpectomy, Sjogren's disease and recent left total hip arthroplasty on 05/07/[address] Melendez presented to ER on 06/07/2024 for progressively worsening dyspnea since 1 week. Patient reports exertional dyspnea since 1 week associated with bilateral leg swelling, orthopnea and PND. Patient had recent follow-up with orthopedic Dr. Melendez and cardiology Dr. Stallings. Patient denies chest pain, abdominal pain, nausea, vomiting, diarrhea or constipation, fever, chills, numbness/weakness/tingling in upper or lower extremities. Patient denies any recent travel or upper respirat ory tract infection. Initial evaluation in the ER shows WBC 4.4, hemoglobin 10.4, MCV 103.5, sodium 135, potassium 4.1, chloride 101, bicarb 26, BUN 17, creatinine 0.72, glucose 114, ALP 208, AST 33, ALT 16, NT proBNP 8130. D-dimer 2.76 mg/L Chest x-ray done in the ER shows moderate bilateral pleural effusions with diffuse airspace opacities. EKG done in the ER shows sinus rhythm with occasional supraventricular premature complexes with heart rate of 65 bpm, MT interval 144 ms, QRS duration 78 ms, QTc duration 420 ms. Normal R wave progression. No ST to T wave changes noted. Vital signs on arrival shows 98.0 F, pulse rate 61, respiratory 18, blood pressure 172/74, oxygen saturation 93% on room air. Subsequent vital signs show pulse rate 66, respiratory rate 18, blood pressure 1 5462, oxygen saturation 97% on 2 L via nasal cannula. Subjective: Patient seen and examined at the bedside. No acute events overnight. Patient to undergo RAFAT today. Patient currently NPO since midnight. Patient denies shortness of breath and chest pain. Patient is currently saturating well on room air. All Systems reviewed and pertinent positives and negatives noted in HPI, all other symptoms are negative Objective: Vital signs reviewed General: non toxic, no distress, appears at stated age, normal weight Derm: no unusual rashes/lesions, warm Head: atraumatic, normocephalic, symmetric Eyes: EOMI, no lid lag, anicteric sclera, pupils equal round reactive to light ENT: Nose and ears atraumatic Neck: No cervical lymphadenopathy, trachea midline, supple Mouth: no lip lesion, mucus membranes moist Cardiovascular: S1S2 reg, no murmur, positive dorsalis pedis pulse bilateral, 1+ bilateral lower extremity edema Lungs: Mild crackles on the left lung base, no wheezing, no use of accessory muscles. Abdominal: soft, nontender to palpation, no guarding Ext: muscle strength 5 out of 5 in all 4 extremities grossly, no gross muscle atrophy, no contractures, Neuro: CN II-XI grossly intact, no gross focal neuro deficits Psych: Alert, oriented, appropriate affect Data reviewed today: Pertinent Labs: WBC 4.6, hemoglobin 10.7, sodium 131, potassium 4.2, chloride 91, bicarb 37, BUN 17, creatinine 1.05 Images: No new imaging Assessment and Plan: #Acute diastolic congestive heart failure #Severe pulmonary hypertension Oxygen therapy as needed Continue Lasix 40 mg p.o. twice daily Echo done on 05/12/2024 shows LVEF 60 to 65%. Moderate mitral stenosis with se kermit pulmonary hypertension. Limited echo done on 06/08/2024 shows LVEF 55 to 60%. Moderate to severe TR with moderate to severe pulmonary hypertension Right heart cath on 06/10/2024 shows mean pulmonary arterial pressure of 27. Cardiology on board, appreciate recs GDMT: Metoprolol increased to 100 mg p.o. twice daily, Hyzaar 50-12.5 mg p.o. daily consider adding SGLT2i, and MRA Continue with amiodarone 200 mg p.o. daily I's and O's and daily weights Fluid restriction to 1500 mL/day Lipid panel: LDL 63.9, HDL 93.3, triglyceride 94.10, cholesterol 176 TSH 0.615 on 05/12/2024 RAFAT today Pulmonary on board, appreciate recs #Hyperkalemia Potassium replacement protocol Monitor BMP #Elevated D-dimer, PE ruled out CT chest angio done on 06/08/2024 negative for pulm embolism Continue with Eliquis 5 mg p.o. twice daily #Elevated alkaline phosphatase GGT 48 Consider right upper quadrant ultrasound if GGT is increased #Hyperglycemia Accu-Cheks and sliding scale insulin HbA1c Monitor for hypoglycemia #Macrocytic anemia Vitamin B12 579 and folate 40 on 04/28/2024 Continue monitor Chronic conditions: Hypertension: Resume Norvasc 5 mg p.o. at bedtime Atrial fibrillation: Resume Eliquis 5 mg twice daily and metoprolol Sjogren's disease: Resume Restasis 0.05% ophthalmic eyedrops Order CBC and BMP tomorrow a.m. DVT prophylaxis: Eliquis 5 mg p.o. twice daily GI prophylaxis: None F: None E: Replete as needed N: Heart healthy diet A: Ambulatory at baseline CODE STATUS: Full code Discussed with: Patient Anticipated discharge place: Pending clinical course Dictation was produced using [employer] dictation software. Please excuse any grammatical, word or spelling errors. Attestation I have seen and examined this patient with my resident , discussed the same with the resident/YESSY, and agree with the dictator's assessment and plan as written GENERAL: The patient is alert and oriented x3, not in any acute distress. Well developed, well nourished. HEENT: Pupils are round and equally reacting to light. EOMI. No scleral icterus. No conjunctival pallor. Normocephalic, atraumatic. No pharyngeal erythema. No thyromegaly. CARDIOVASCULAR: S1 and S2 present. No murmurs, rubs, or gallops. PULMONARY: Coarse breath sounds bilaterally, no wheezing or crackles. ABDOMEN: Soft, nontender, nondistended, normoactive bowel sounds. No palpable organomegaly. MUSCULOSKELETAL: No joint swelling or deformity. EXTREMITIES: No cyanosis, clubbing, or pedal edema. NEUROLOGICAL: Gross neurological examination did not reveal any focal deficits. SKIN: No rashes. Dr. Dale awad Objective - Vital Signs Vital signs: Vital Signs Temp 97.9 F 06/11/24 03:14 Pulse 71 06/11/24 03:14 Resp 18 06/11/24 03:14 BP 136/67 06/11/24 03:14 Pulse Ox 95 06/11/24 03:14 FiO2 Intake & Output 06/10/24 06/11/24 06/11/24 18:59 06:59 18:59 Intake Total 10 Balance 10 Weight 56.2 kg Intake: IV 10 Invasive Line 2 10 Other: Voiding Method Toilet # Voids 2 1 1 # Bowel Movements 1 - Labs CBC & Chem 7: 06/12/24 06:36 06/12/24 07:54 Labs: Abnormal Lab Results - Last 24 Hours (Table) 06/11/24 06/11/24 Range/Units 06:08 06:08 RBC 3.53 L (3.80-5.40) m/uL Hgb 10.7 L (11.4-16.0) gm/dL MCV 101.3 H (80.0-100.0) fL MCHC 29.8 L (31.0-37.0) g/dL RDW 17.1 H (11.5-15.5) % Lymphocytes # 0.6 L (1.0-4.8) k/uL Sodium 131 L (137-145) mmol/L Chloride 91 L (98-107) mmol/L Carbon Dioxide 37 H (22-30) mmol/L Creatinine 1.05 H (0.52-1.04) mg/dL
--- NOTE | 2024-06-11 12:10 | P.PN ---
Subjective HISTORY OF PRESENT ILLNESS: This is an 79-year-old female patient of Dr. MAAME Stallings with past medical history of hypertension, hyperlipidemia, Sjogren's disease, rheumatoid arthritis, RV enlargement secondary untreated sleep apnea. Patient had a recent syncopal episode when she was on the toilet landing on her left hip and required surgical intervention performed on 05/07/2024 followed by open reduction of dislocation of the same hip. During that hospitalization, patient was found to be in A-fib with RVR. She now presents to the hospital with difficulty breathing that has been going on for about 1 week. Patient had increasing difficulty with breathing as well as lower leg swelling. Patient has been started on IV Lasix. Patient was last seen in the office on 05/2024 at that time amiodarone was decreased to once daily dosing with plan to discontinue on her next visit. Cardizem was discontinued. Patient was scheduled for Lexiscan stress test which patient states is scheduled for this week in the office. -EKG: Sinus rhythm with PACs -Chest x-ray: Asymmetrical edema versus pneumonia, worse on the right. Small to moderate pleural effusions more on the right. -Laboratory studies: WBC 4.4, hemoglobin 10.4. D-dimer 2.76. Sodium 135, potassium 4.1, creatinine 0.72. -Home cardiac medications: Amiodarone 200 mg daily, amlodipine 5 mg at bedtime, Eliquis 5 mg twice daily, Lopressor 100 mg twice daily 06/09/2024 Patient examined this morning in the emergency room. Patient currently denies chest pain or pressure. She denies shortness of breath at the time of examination. Vital signs are stable. She is maintaining sinus mechanism. Echocardiogram completed revealing ejection fraction 55 to 60%, no obvious regional wall motion abnormalities, severe pulmonary hypertension, and moderate TR. Mitral valve leaflets do not show any significant restriction. 06/10/2024 Patient underwent right heart cath today with Dr. Stallings revealing right atrial pressure of 4 mmHg, right ventricular pressure 56/4. Pulmonary arterial pre ssure was 56/15 with mean of 27. Wedge pressure was 18 mmHg. V wave was not prominent. Thermodilution cardiac output was 4.0 L. Femoral arterial saturation was presumed to be 95%. Pulmonary artery saturation was 67%. Right atrial saturation was 64%. Right ventricular saturation was 60%. There was no oxygen step up. The thick cardiac output was 4.9 L and thermodilution cardiac output was 4.0 L. 06/11/2024 Patient examined this morning the bedside. Patient currently denies chest pain or pressure. She denies shortness of breath. Vital signs are stable. Patient is maintaining sinus mechanism. PHYSICAL EXAM: VITAL SIGNS: Reviewed. GENERAL: Well-developed in no acute distress. NECK: Supple. No JVD or thyromegaly LUNGS: Respirations even and unlabored. Lungs essentially clear to auscultation bilaterally. HEART: Regular rate and rhythm. S1 and S2 heard. EXTREMITIES: Normal range of motion. No clubbing or cyanosis. Peripheral pulses intact. No lower extremity edema ASSESSMENT: Acute heart failure with preserved EF Severe pulmonary hypertension Moderate tricuspid regurgitation Paroxysmal atrial fibrillation currently in sinus rhythm Hypertension Hyperlipidemia Sjogren's disease Rheumatoid arthritis Recent left hip arthroplasty and open reduction of dislocated left hip in April PLAN: Continue current cardiac medications including amiodarone, Eliquis, Lasix, meto prolol, and losartanhydrochlorothiazide Patient to undergo RAFAT tomorrow today with Dr. Odom. N.p.o. at midnight Hold Eliquis tonight and tomorrow morning Patient will also undergo left heart cath with Dr. Stallings on 06/12/2024 Further recommendations pending patient course Nurse practitioner note has been reviewed by physician. Signing provider agrees with the documented findings, assessment, and plan of care documented by [employer] MANAGER as a scribe. Objective - Vital Signs Vital signs: Vital Signs Temp 99.5 F 06/11/24 08:15 Pulse 74 06/11/24 08:15 Resp 18 06/11/24 08:15 BP 114/56 06/11/24 08:15 Pulse Ox 99 06/11/24 08:15 FiO2 Intake & Output 06/10/24 06/11/24 06/11/24 18:59 06:59 18:59 Intake Total 10 Balance 10 Weight 56.2 kg Intake: IV 10 Invasive Line 2 10 Other: Voiding Method Toilet Toilet # Voids 2 1 1 # Bowel Movements 1 1 - Labs CBC & Chem 7: 06/11/24 06:08 06/11/24 06:08 Labs: Abnormal Lab Results - Last 24 Hours (Table) 03/20/25 03/20/25 Range/Units 06:08 06:08 RBC 3.53 L (3.80-5.40) m/uL Hgb 10.7 L (11.4-16.0) gm/dL MCV 101.3 H (80.0-100.0) fL MCHC 29.8 L (31.0-37.0) g/dL RDW 17.1 H (11.5-15.5) % Lymphocytes # 0.6 L (1.0-4.8) k/uL Sodium 131 L (137-145) mmol/L Chloride 91 L (98-107) mmol/L Carbon Dioxide 37 H (22-30) mmol/L Creatinine 1.05 H (0.52-1.04) mg/dL
[2024-06-11] MEDS: BENZOCAINE SPRAY 1 EACH MUCOUS MEM ONE (13:19)
[2024-06-11] MEDS: fentaNYL (PF) 50 MCG/1 ML VIAL IVP ONE (13:20)
[2024-06-11] MEDS: MIDAZOLAM 2 MG/2 ML VIAL IVP ONE (13:20)
[2024-06-11] MEDS: SODIUM CHLORIDE 0.9% 250 ML IV ONE (13:24)
--- NOTE | 2024-06-11 15:01 | P.PN ---
Subjective Progress Note Date: 06/11/24 Patient is an 79-year-old female with past medical history significant for Sjogren's disease, breast cancer with previous lumpectomy, hypertension, atrial fibrillation, and left hip total arthroplasty. Of note, patient had a fall in April, resulting in dislocation of left hip total arthroplasty. Following this, had open reduction of the left total hip arthroplasty. During that hospitalization, found to be in new onset atrial fibrillation with RVR. She is anticoagulated on Eliquis. Also, takes amiodarone 200 mg p.o. daily and metoprolol 100 mg p.o. twice daily. Echocardiogram done April, showing preserved left ventricular ejection fraction, moderate mitral stenosis, and severe pulmonary hypertension. Return to the emergency department back on 06/07/2024 with chief complaint of several days of worsening dyspnea. Associated bilateral lower extremity swelling. Denies chest pain. States she has been compliant with her Eliquis. Denied infectious symptoms. Workup in the emergency department including cardiomegaly, pulmonary vascular congestion, and small to moderate-sized bilateral pleural effusions. CBC: WBC count 3, hemoglobin 10.9, hematocrit 36.9, platelets 337. CMP: Sodium 135, potassium 4.1, chloride 94, serum bicarb 39, BUN 13, creatinine 1.02, glucose 138. NT proBNP elevated at 8130. Troponin 0.024. EKG sinus mechanism on arrival, rate 65 bpm, frequent PACs, no obvious acute ischemic changes. Elevated D-dimer in setting CT angio protocol did which did not show any filling defects consistent with pulmonary embolism. There is cardiomegaly with moderate right and small left pleural effusion with pulmonary vascular congestion suggestive of congesti ve heart failure/volume overload. Moderate to severe coronary artery atherosclerosis. Follow-up echocardiogram this admission again estimating a preserved left ventricular ejection fraction, dilated right ventricle with moderate to severe tricuspid regurgitation and moderate-severe pulmonary hyper tension. Patient reportedly scheduled for heart catheterization tomorrow. Patient currently being evaluated in the cardiac stepdown unit. She is resting comfortably on 2 L/min nasal cannula. No respiratory distress. Currently, receiving p.o. Lasix 40 mg twice daily. She states she is voiding often. She has lower extremity swelling. Lower extremity venous Doppler negative for DVTs bilaterally. Endorses orthopnea. Denies any chest pain, heart palpitations, lightheadedness or syncopal events since April. Denies infectious-like symptoms. Current vital signs: Temperature 98 F, heart rate 60 bpm, blood pressure 134/72 mmHg, nontachypneic, SpO2 was recorded at 95% on 2 L/min nasal c annula. The patient is seen today June 11, 2024 in follow-up on the selective care unit. She is currently up ambulating with her walker and assistance in her room. Awake and alert in no acute distress. Denies any worsening shortness of breath, cough or congestion. No chest pain or palpitations. She is maintaining O2 saturations in the high 90s on 2 L/min per nasal cannula. She has been afe brile. Hemodynamically stable. She did undergo a right heart catheterization 06/10/2024 and was found to have severe pulmonary hypertension and moderate tricuspid regurgitation. Plan is for transesophageal echocardiogram today and left heart catheterization tomorrow. Her Eliquis is currently on hold. White count 4.6. Hemoglobin 10.7. Platelets 312. Sodium 131. Potassium 4.2. Bicarb 37. BUN 17. Creatinine 1.05. Remains on Lasix 40 mg twice daily. Continued on amiodarone and Lopressor. Objective - Vital Signs Vital signs: Vital Signs Temp 99.3 F 06/11/24 11:40 Pulse 78 06/11/24 13:33 Resp 18 06/11/24 13:33 BP 146/65 06/11/24 13:33 Pulse Ox 99 06/11/24 13:33 FiO2 Intake & Output 06/10/24 06/11/24 06/11/24 18:59 06:59 18:59 Intake Total 10 100 Balance 10 100 Weight 56.2 kg Intake: IV 10 100 Invasive Line 2 10 Other: Voiding Method Toilet Toilet # Voids 2 1 1 # Bowel Movements 1 1 - Exam GENERAL EXAM: Alert, very pleasant 79-year-old female, on 2 L nasal cannula, fairly comfortable in no apparent distress. HEAD: Normocephalic. EYES: Normal reaction of pupils, equal size. NOSE: Clear with pink turbinates. THROAT: No erythema or exudates. NECK: No masses, no JVD. CHEST: No chest wall deformity. LUNGS: Equal air entry with crackles in the bilateral bases right greater than left. CVS: S1 and S2 normal with no audible murmur, regular rhythm. ABDOMEN: No hepatosplenomegaly, normal bowel sounds, no guarding or rigidity. SPINE: No scoliosis or deformity SKIN: No rashes CENTRAL NERVOUS SYSTEM: No focal deficits, tone is normal in all 4 extremities. EXTREMITIES: There is no peripheral edema. No clubbing, no cyanosis. Peripheral pulses are intact. - Labs CBC & Chem 7: 06/11/24 06:08 06/11/24 06:08 Labs: Abnormal Lab Results - Last 24 Hours (Table) 06/11/24 06/11/24 Range/Units 06:08 06:08 RBC 3.53 L (3.80-5.40) m/uL Hgb 10.7 L (11.4-16.0) gm/dL MCV 101.3 H (80.0-100.0) fL MCHC 29.8 L (31.0-37.0) g/dL RDW 17.1 H (11.5-15.5) % Lymphocytes # 0.6 L (1.0-4.8) k/uL Sodium 131 L (137-145) mmol/L Chloride 91 L (98-107) mmol/L Carbon Dioxide 37 H (22-30) mmol/L Creatinine 1.05 H (0.52-1.04) mg/dL Assessment and Plan Assessment: Acute exacerbation of diastolic congestive heart failure, chest CT angio protocol did which did not show any filling defects consistent with pulmonary embolism. There is cardiomegaly with moderate right and small left pleural effusion with pulmonary vascular congestion suggestive of congestive heart failure/volume overload. Moderate to severe coronary artery atherosclerosis. NT-proBNP significantly elevated. Acute hypoxemic respiratory failure, currently on 2 L/min nasal cannula, secondary to above History of heart failure with preserved ejection fraction, echocardiogram done April, showing preserved left ventricular ejection fraction, moderate mitral stenosis, and severe pulmonary hypertension. RVSP 78 mmHg Paroxysmal atrial fibrillation, currently sinus mechanism, anticoagulated on Eliquis, also receiving metoprolol 100 mg twice daily and amiodarone 200 mg daily Hypertension History of left total hip arthroplasty History of fall resulting in dislocation of left hip total arthroplasty. Following this, had open reduction of the left total hip arthroplasty. Elevated D-dimer, chest CT angio did not show any obvious filling defects consi stent with pulmonary embolism. Venous Doppler bilateral lower extremities negative for DVTs Anemia, without any obvious acute blood loss History of Sjogren's disease History of breast cancer with previous lumpectomy Plan: The patient was seen and evaluated Labs and medications reviewed Stable and on 2 L nasal cannula Eliquis currently on hold Plan is for RAFAT today Plan is for left heart catheterization tomorrow Repeat chest x-ray in a.m. Continue Lasix twice daily May or may not proceed with thoracentesis Up with a walker and assistance Will continue to follow I have personally seen and examined the patient, performed the documentation and the assessment and plan as written. Number of minutes spent on the visit: 10 Dictation was produced using iov[employer] dictation software. Please excuse any grammatical, word or spelling errors.
[2024-06-11] MEDS: BENZOCAINE SPRAY 1 EACH MM ONE (15:41)
--- NOTE | 2024-06-11 15:50 | P.TEE ---
Date of Procedure: 06/11/24 Description of Procedure(s): Procedure performed: 1. Transesophageal Echocardiogram with color flow doppler, pulsed wave doppler and continuous wave doppler, (CPT 94711, +[id number], [id number]) 2. Moderate conscious sedation. Sedation time 15 mins. (CPT 44890) Indications: Moderate tricuspid regurgitation, severe pulmonary hypertension Consent: I have discussed the risks, benefits and alternative therapies for the above-mentioned procedure. The patient has indicated understanding and acceptance of the risks of the procedure. Signed consent was obtained and was placed in the paper chart. Procedural Steps: Timeout was performed in usual fashion. Patient's heart rate, blood pressure, oxygen saturation and ECG were monitored. Benzocaine was sprayed liberally in the back of the throat. Bite block was placed between the jaw. 2 mg of Versed and 50 mcg of Fentanyl were administered intravenously. After ac hieving appropriate moderate conscious sedation, RAFAT probe was advanced without difficulty and without any immediate complications to the esophagus. RAFAT study was performed with color flow doppler, pulsed wave doppler and continuous wave doppler. The probe was then removed. Patient tolerated the procedure well. Patient was transferred to the post procedure area in stable and satisfactory condition. Throughout the procedure patient's heart rate, blood pressure, oxygen saturation and ECG were monitored. Total sedation time 15 mins. Complications: none FINDINGS Left Atrium: Mild left atrial dilatation. No evidence of mass or thrombus seen. Normal S/D ratio in pulmonic vein. Left Atrial Appendage: No evidence of thrombus or mass seen in BRIDGETT Inter atrial septum: Intact inter-atrial septum with no evidence of atrial septal defect or patent foramen ovale. Left Ventricle: Normal global LV size and systolic function Right Atrium: Moderate to severe left atrial dilatation. Right Ventricle: Moderate RV dilatation with normal systolic function. Aortic Valve: Trileaflet aortic valve with mild calcification. Lahms excrescence noticed on aortic valve. Mild aortic stenosis and mild aortic regurgitation. Mitral Valve: Mild mitral regurgitation. Pulmonic Valve: Mild pulmonic regurgitation Tricuspid Valve: Moderate tricuspid regurgitation. RVSP estimated at more than 60 mmHg. Ascending aorta, Aortic root and Aortic arch: Normal size aortic root and ascending aorta. Mild intimal thickening. Descending aorta: Mild intimal thickening. No evidence of large atheroma or bulky calcification No pericardial effusion CONCLUSION: Severe pulmonary hypertension with RVSP estimated at more than 60 mmHg Moderate tricuspid regurgitation Signs of RA and RV volume overload with severe RA dilatation and moderate RV dilatation Mild aortic regurgitation and mild aortic stenosis Mild mitral regurgitation Israel Odom MD, RPVI, FACC Thank you for allowing [facility] to participate in this patient's care. Feel free to reach out in case of any followup questions.
[2024-06-12 07:21] LABS: Anisocytosis Slight; HCT 35.6 % (34.0-46.0); HGB 10.9 gm/dL (11.4-16.0); Hypochromasia Moderate; MCH 30.7 pg (25.0-35.0); MCHC 30.8 g/dL (31.0-37.0); MCV 99.7 fL (80.0-100.0); Macrocytosis Slight; Platelet Count 282 k/uL (150-450); RBC 3.57 m/uL (3.80-5.40); RDW 16.7 % (11.5-15.5); WBC 6.7 k/uL (3.8-10.6)
--- NOTE | 2024-06-12 07:56 | XR ---
EXAM: XR Chest, 1 View CLINICAL HISTORY: ITS.REASON XR Reason: CHF TECHNIQUE: Frontal view of the chest. COMPARISON: X-ray dated 06/07/2024. FINDINGS: Lungs: Persistent right lower lobe airspace opacification. The left lung is clear. Pleural space: Improved right-sided pleural effusion. No pneumothorax. Heart: Unremarkable. No cardiomegaly. Mediastinum: Unremarkable. Normal mediastinal contour. Bones/joints: Degenerative changes are seen in the spine and shoulders. No acute fracture. Vasculature: Calcifications overlie the aorta. IMPRESSION: Improving right-sided pleural effusion with adjacent atelectasis and/or pneumonia not excluded.
[2024-06-12 08:02] LABS: Monocytes # (M) 0.47 k/uL (0-1.0); Neutrophils # (M) 5.43 k/uL (1.3-7.7); Neutrophils % (M) 81 %; Nucleated Red Blood Cells 0 /100 WBC (0-0); Total Cells Counted 100
[2024-06-12 08:28] LABS: African American GFR (CKD) 57 (>60 ml/min/1.73 sqM); Anion Gap 5 mmol/L; Blood Urea Nitrogen 21 mg/dL (7-17); Calcium 8.4 mg/dL (8.4-10.2); Carbon Dioxide 36 mmol/L (22-30); Chloride 86 mmol/L (98-107); Glucose 100 mg/dL (74-99); Non-African American GFR(CKD) 50 (>60 ml/min/1.73 sqM); Potassium 3.2 mmol/L (3.5-5.1); Sodium 127 mmol/L (137-145)
[2024-06-12] MEDS: ATORVASTATIN 80 MG TAB PO STA ×2 (08:34→16:34)
[2024-06-12] MEDS: ASPIRIN 325 MG TAB PO STA ×2 (08:34→16:34)
[2024-06-12] MEDS: HEPARIN SODIUM,PORCINE (1 ML) 2,500 UNIT in SODIUM CHLORIDE 0.9% 250 ML IRRIGATION ONE (08:55)
[2024-06-12] MEDS: SODIUM CHLORIDE 0.9% 500 ML 500 ML IV ONE (08:55)
[2024-06-12] MEDS: HEPARIN SODIUM,PORCINE 10,000 UNIT in SODIUM CHLORIDE 0.9% 1,000 ML IRRIGATION ONE (08:56)
[2024-06-12] MEDS: MIDAZOLAM 2 MG/2 ML VIAL IVP ONE (09:26)
[2024-06-12] MEDS: LIDOCAINE 1% INJ 10MG/ML (20 ML MDV) SQ ONE (09:31)
[2024-06-12] MEDS: VERAPAMIL SYRINGE (5 MG/10 ML) INTRAARTER ONE (09:33)
[2024-06-12] MEDS: NITROGLYCERIN 1000MCG/10ML SYRINGE INTRACORON ONE (09:58)
[2024-06-12] MEDS: IOPAMIDOL-370 100ML BTL INJ ONE (10:01)
[2024-06-12] MEDS: FUROSEMIDE 40 MG TAB PO SCH (10:40)
[2024-06-12] MEDS: SODIUM CHLORIDE 0.9% 1,000 ML IV SCH (10:41)
[2024-06-12] MEDS: HEPARIN SODIUM 1,000 UN/ML (10ML VL) IV ONE (10:49)
--- NOTE | 2024-06-12 11:31 | CC ---
CARDIAC CATHETERIZATION REPORT PROCEDURES PERFORMED: 1. Left heart catheterization and coronary angiography. 2. Instantaneous wave-free ratio assessment of proximal left anterior descending lesion. PERFORMED BY: Dr. Dione Stallings. ANESTHESIA: Moderate conscious sedation time was 30 minutes. The patient was administered Versed. Oxygen saturation, hemodynamics, and EKG were monitored closely. CLINICAL INFORMATION: Ms. Marta Merritt is an 79-year-old lady with a history of paroxysmal atrial fibrillation, tricuspid regurgitation, and recent hip surgery. She had a previous stress test that was unremarkable. In view of her recurrent hospitalization with heart failure, workup included a transesophageal echo and right heart catheterization and these studies suggested moderate to severe pulmonary hypertension with moderate tricuspid regurgitation. The wedge pressure was high, but the PA pressures were also high at 55 to 60 systolic. However, in view of her continued symptomatology of shortness of breath, I recommended coronary angiography to rule out obstructive CAD. Risks, benefits, options, rationale were explained. PROCEDURE NOTE: Under local anesthesia and strict aseptic precautions with the help of ultrasound guidance, access was obtained into the right radial artery. Using a JL3.5 and JR4 catheters, I performed coronary angiography and the same right catheter was used to check LV pressure, but LV-gram was not performed. Following the diagnostic catheterization because of a moderate lesion involving the proximal LAD with calcification, I recommended IFR and I performed it in the same setting. I used a JL3.5 guide catheter and the IFR wire. After appropriate calibration of the wire before advancing it into the LAD and taking all due precautions and calibration, IFR assessment was performed of the proximal LAD lesion and came out to be 0.74 quite significant for ischemia. The sheath was then taken out and TR band applied as per protocol with saturation of the fingers of the right hand of more than 92%. The patient tolerated the procedure well without complications. Findings were reviewed with the patient and her . I am recommending aortocoronary bypass surgery with graft to the LAD, first obtuse marginal as well as PLV branch of circumflex. Right is nondominant. CARDIAC CATHETERIZATION FINDINGS: The left ventricular end-diastolic pressure was 6 mmHg. No gradient across the aortic valve. CORONARY ANGIOGRAPHY FINDINGS: The right coronary artery: Nondominant vessel has mild to moderate diffuse disease throughout. In the midportion, there is a 50% lesion, but this is a nondominant vessel, supplies a probably limited amount of myocardium, mild diffuse disease, 50% mid lesion. Left main coronary artery: Short patent disease-free vessel that bifurcates into LAD and circumflex. Left anterior descending coronary artery: This vessel has a very proximal eccentric calcified 70% or 80% lesion and the rest of the LAD is free of significant disease other than minor irregularities. Left posterior circumflex coronary artery: Dominant vessel, gives off a first obtuse marginal that has a 95% lesion and after that, there is a 90% lesion in the circumflex and another 80% lesion distally before it bifurcated to the distal branches. The circumflex is dominant, supplies a sizable amount of myocardium and has significant lesions involving the OM and independent lesion and also mid circumflex. IFR assessment of LAD was performed and IFR came to be 0.74 significant for ischemia in the LAD and territory. RECOMMENDATIONS: I am recommending aortocoronary bypass surgery with a HAM to LAD and vein graft to the obtuse marginal and PLV branch of circumflex. If for some reason, surgery is thought to be high risk because the patient is frail, weighs 55 kg, staged PCI can be performed of the LAD and circumflex systems. I discussed my thoughts in detail with the patient and her . She will be seen by Dr. Barros today. MMODL / IJN: [id number] /
[2024-06-12] MEDS: HEPARIN SOD,PORK IN 0.45% NACL 25,000 UNIT in 0.45% NACL 1 250ML.BAG IV SCH (12:21)
[2024-06-12 12:52] LABS: INR 1.2 (<1.2); Partial Thromboplastin Time 84.9 sec (22.0-30.0); Prothrombin Time 12.7 sec (10.0-12.5)
[2024-06-12 12:59] LABS: ALT 10 U/L (4-34); AST 18 U/L (14-36); African American GFR (CKD) 84 (>60 ml/min/1.73 sqM); Albumin 2.7 g/dL (3.5-5.0); Alkaline Phosphatase 109 U/L (38-126); Anion Gap 3 mmol/L; Blood Urea Nitrogen 17 mg/dL (7-17); Calcium 6.9 mg/dL (8.4-10.2); Carbon Dioxide 29 mmol/L (22-30); Chloride 98 mmol/L (98-107); Glucose 78 mg/dL (74-99); Magnesium 1.7 mg/dL (1.6-2.3); Non-African American GFR(CKD) 73 (>60 ml/min/1.73 sqM); Potassium 2.8 mmol/L (3.5-5.1); Sodium 130 mmol/L (137-145); Total Bilirubin 0.6 mg/dL (0.2-1.3); Total Protein 5.7 g/dL (6.3-8.2)
--- NOTE | 2024-06-12 13:08 | XR ---
EXAMINATION TYPE: XR chest 1V portable DATE OF EXAM: 06/12/2024 1:04 PM COMPARISON: 06/07/2024 CLINICAL INDICATION: Female, 79 years old with history of Pleural effusion, TECHNIQUE: XR chest 1V portable views of the chest are obtained. FINDINGS: Demonstrated are scattered senescent parenchymal change. Much improved features of congestive failure with mild residual pulmonary venous congestion and right basilar effusion with probable underlying atelectasis. Hilar and mediastinal structures are within n ormal limits. Degenerative changes are seen of the dorsal spine. IMPRESSION: 1. Much improved features of congestive failure with mild residual pulmonary venous congestion and r ight basilar effusion with probable underlying atelectasis. [facility], , 06/12/2024 1:05 PM
--- NOTE | 2024-06-12 14:05 | P.GSCN ---
History of Present Illness Consult date: 06/12/24 Reason for Consult: Multivessel coronary artery disease Requesting physician: Macey Stallings History of present illness: This is an 79-year-old female patient who follows with Dr. MAAME Stallings in the office for her cardiology care. She has a past medical history significant for hypertension, recent syncopal event in April 2024, new onset atrial fibrillation on Eliquis for anticoagulation, rheumatoid arthritis, status post left hip replacement, and recent fall from standing post left hip replacement with left hip dislocation status post open reduction left total hip arthroplasty with revision to dual mobility liner, moderate pulmonary hypertension, history of breast cancer, status post right lumpectomy in 2011, Sjogren's disease and is a lifetime non-smoker. On June 07, 2024 the patient presented to the emergency department here at [facility] via EMS due to complaints of shortness of breath which was present for 2 days and progressively got worse, and edema to her bilateral lower extremities. She denies any recent fever, chills, nausea, vomiting, chest pain/pressure, diarrhea, constipation, headache, visual disturbances, hemoptysis, hematemesis or lightheadedness. Initial labora tory results showed a WBC count of 4.4, hemoglobin 10.4, hematocrit 35.6, platelets 361, PT 11.7, INR 1.1, PTT 23.0, D-dimer 2.76, sodium 135, potassium 4.1, chloride 101, CO2 26, BUN 17, creatinine 0.72, glucose 114, proBNP 8130, and troponin 0.024. A twelve-lead EKG was completed in the emergency department which showed normal sinus rhythm with occasional supraventricular premature complexes with a heart rate of 65 bpm. A chest x-ray was completed which showed small to moderate pleural effusions more on the right and asymmetrical edema versus pneumonia worse on the right. Due to the patient's elevated D-dimer a chest CTA was completed which revealed no evidence for pulmonary embolus, ca rdiomegaly with moderate right and small left pleural effusions with pulmonary vasculature congestion, and moderate to severe coronary artery atherosclerosis. Due to her bilateral lower extremity edema and ultrasound venous Doppler was completed which showed no ultrasound evidence for deep vein thrombosis. For further evaluation a transthoracic 2D echocardiogram was completed on June 08, 2024 which demonstrated a left ventricular ejection fraction estimated at 55 to 60%, moderate tricuspid valve regurgitation, and no pericardial effusion. Due to the patient's finding of right pleural effusion and ultrasound of the chest with markings was completed on June 10, 2024 which demonstrated a 9.8 cm right pleural effusion pocket. Cardiology was consulted and the patient was recommended to undergo a cardiac catheterization which was completed today. The cardiac catheterization results demonstrated triple-vessel coronary artery disease, and subsequently due to these findings a consult was placed to Dr. Buster Barros from cardiothoracic surgery for further evaluation and treatment recommendations. Review of Systems A review of systems was completed and was negative except as mentioned in the HPI. Past Medical History Past Medical History: Atrial Fibrillation, Cancer, Hypertension, Rheumatoid Arthritis (RA), Syncope Additional Past Medical History / Comment(s): Shogren's disease, breast cancer History of Any Multi-Drug Resistant Organisms: None Reported Past Surgical History: Joint Replacement Additional Past Surgical History / Comment(s): L hip replacement April 2024, hip dislocation repair. Right breast lumpectomy, 2011. Bilateral eye cataract surgery Past Anesthesia/Blood Transfusion Reactions: No Reported Reaction Past Psychological History: No Psychological Hx Reported Smoking Status: Former smoker Past Alcohol Use History: Occasional Past Drug Use History: None Reported - Past Family History Mother Family Medical History: Cancer (Breast cancer) Father Additional Family Medical History / Comment(s): from a blood clot at age 58 Medications and Allergies Home Medications Medication Instructions Recorded Confirmed Type cycloSPORINE 0.05% OPHTH SOLN 1 drop BOTH EYES BID 05/11/24 06/08/24 History [Restasis] Apixaban [Eliquis] 5 mg PO BID 30 Days #60 tab 05/16/24 06/08/24 Rx Metoprolol Tartrate [Lopressor] 100 mg PO BID 30 Days #120 tab 05/16/24 06/08/24 Rx Acetaminophen/Diphenhydramine 2 tab PO HS 06/08/24 06/08/24 History [Tylenol PM 500-25mg] Amiodarone [Cordarone] 200 mg PO DAILY 06/08/24 06/08/24 History amLODIPine [Norvasc] 5 mg PO HS 06/08/24 06/08/24 History Allergies Allergy/AdvReac Type Severity Reaction Status Date / Time No Known Allergies Allergy Verified 06/08/24 06:44 Surgical - Exam Vital Signs Temp Resp BP Pulse Ox 98.0 F 18 172/74 93 L 06/07/24 22:15 06/07/24 22:15 06/07/24 22:15 06/07/24 22:15 - General well developed, well nourished, no distress, no pain, chronically ill - Eyes PERRL, normal ocular movement, no pale, no icteric - ENT normal pinna, normal nares, normal mucosa, no hearing loss, no congestion, dentures (Lower plate only) - Neck Neck is supple, no lymphadenopathy. no masses, no bruits, trachea midline, no venous distension - Respiratory Lung sounds essentially clear throughout with few scattered crackles, diminished to her bilateral bases right greater than left. No wheezes or rhonchi. Respirations are symmetrical and nonlabored - Cardiovascular Regular rhythm and rate. S1 and S2 present, negative for S3 or gallop. Positive systolic murmur heard best to her right sternal border. - Abdomen Abdomen is soft, nontender and nondistended. Active bowel sounds present all 4 abdominal quadrants. No guarding or rigidity. No organomegaly appreciated. - Genitourinary Deferred - Rectum Deferred - Integumentary Skin is warm and dry. No clubbing or cyanosis is present. Left hip incision is clean, dry and approximated. No drainage or redness is present. no rash, no growths, no abnormal pigmentation - Neurologic No focal deficits. - Musculoskeletal Moves all 4 extremities with equal strength bilateral, generalized weakness to her left lower extremity due to recent hip surgery - Psychiatric oriented to time, oriented to person, oriented to place, speech is normal, memory intact Results - Labs 06/12/24 06:36 06/12/24 12:23 Abnormal Lab Results - Last 24 Hours (Table) 06/12/24 06/12/24 06/12/24 Range/Units 06:36 07:54 12:23 RBC 3.57 L (3.80-5.40) m/uL Hgb 10.9 L (11.4-16.0) gm/dL MCHC 30.8 L (31.0-37.0) g/dL RDW 16.7 H (11.5-15.5) % Lymphocytes # (Manual) 0.80 L (1.0-4.8) k/uL PT 12.7 H (10.0-12.5) sec INR 1.2 H (<1.2) APTT 84.9 H (22.0-30.0) sec Sodium 127 L (137-145) mmol/L Potassium 3.2 L (3.5-5.1) mmol/L Chloride 86 L (98-107) mmol/L Carbon Dioxide 36 H (22-30) mmol/L BUN 21 H (7-17) mg/dL Creatinine 1.06 H (0.52-1.04) mg/dL Glucose 100 H (74-99) mg/dL Calcium (8.4-10.2) mg/dL Total Protein (6.3-8.2) g/dL Albumin (3.5-5.0) g/dL 06/12/24 Range/Units 12:23 RBC (3.80-5.40) m/uL Hgb (11.4-16.0) gm/dL MCHC (31.0-37.0) g/dL RDW (11.5-15.5) % Lymphocytes # (Manual) (1.0-4.8) k/uL PT (10.0-12.5) sec INR (<1.2) APTT (22.0-30.0) sec Sodium 130 L (137-145) mmol/L Potassium 2.8 L (3.5-5.1) mmol/L Chloride (98-107) mmol/L Carbon Dioxide (22-30) mmol/L BUN (7-17) mg/dL Creatinine (0.52-1.04) mg/dL Glucose (74-99) mg/dL Calcium 6.9 L (8.4-10.2) mg/dL Total Protein 5.7 L (6.3-8.2) g/dL Albumin 2.7 L (3.5-5.0) g/dL Diabetes panel 06/12/24 06/12/24 Range/Units 07:54 12:23 Sodium 127 L 130 L (137-145) mmol/L Potassium 3.2 L 2.8 L (3.5-5.1) mmol/L Chloride 86 L 98 (98-107) mmol/L Carbon Dioxide 36 H 29 (22-30) mmol/L BUN 21 H 17 (7-17) mg/dL Creatinine 1.06 H 0.77 (0.52-1.04) mg/dL Glucose 100 H 78 (74-99) mg/dL Calcium 8.4 6.9 L (8.4-10.2) mg/dL AST 18 (14-36) U/L ALT 10 (4-34) U/L Alkaline Phosphatase 109 (38-126) U/L Total Protein 5.7 L (6.3-8.2) g/dL Albumin 2.7 L (3.5-5.0) g/dL Calcium panel 06/12/24 06/12/24 Range/Units 07:54 12:23 Calcium 8.4 6.9 L (8.4-10.2) mg/dL Albumin 2.7 L (3.5-5.0) g/dL Pituitary panel 06/12/24 06/12/24 Range/Units 07:54 12:23 Sodium 127 L 130 L (137-145) mmol/L Potassium 3.2 L 2.8 L (3.5-5.1) mmol/L Chloride 86 L 98 (98-107) mmol/L Carbon Dioxide 36 H 29 (22-30) mmol/L BUN 21 H 17 (7-17) mg/dL Creatinine 1.06 H 0.77 (0.52-1.04) mg/dL Glucose 100 H 78 (74-99) mg/dL Calcium 8.4 6.9 L (8.4-10.2) mg/dL Adrenal panel 06/12/24 06/12/24 Range/Units 07:54 12:23 Sodium 127 L 130 L (137-145) mmol/L Potassium 3.2 L 2.8 L (3.5-5.1) mmol/L Chloride 86 L 98 (98-107) mmol/L Carbon Dioxide 36 H 29 (22-30) mmol/L BUN 21 H 17 (7-17) mg/dL Creatinine 1.06 H 0.77 (0.52-1.04) mg/dL Glucose 100 H 78 (74-99) mg/dL Calcium 8.4 6.9 L (8.4-10.2) mg/dL Total Bilirubin 0.6 (0.2-1.3) mg/dL AST 18 (14-36) U/L ALT 10 (4-34) U/L Alkaline Phosphatase 109 (38-126) U/L Total Protein 5.7 L (6.3-8.2) g/dL Albumin 2.7 L (3.5-5.0) g/dL - Imaging Chest x-ray: report reviewed, image reviewed CT scan - chest: report reviewed Additional studies: Cardiac catheterization films were reviewed by Dr. Buster Barros. Results of transthoracic and transesophageal echocardiogram were reviewed. Assessment and Plan Assessment: Multivessel coronary artery disease Acute diastolic heart failure Paroxysmal atrial fibrillation, currently in normal sinus rhythm, on Eliquis for anticoagulation Hypertension Sjogren's disease Rheumatoid arthritis, recent left hip arthroplasty and open reduction of dislocated left hip in April 2024 Remote history of smoking History of breast cancer, status post right lumpectomy in 2024, status post radiation treatments Macrocytic anemia Plan: The patient was seen and examined at her bedside on the third floor cardiac stepdown unit. Her chart and diagnostics reviewed. Her case was discussed in detail with Dr. Buster Barros from cardiothoracic surgery. Dr. Barros reviewed the cardiac catheterization films. Discussed the findings on the films with the patient and her present at her bedside and also discussed the findings with the patient's son. The usual course of myocardial vascularization surgery was discussed with the patient and her family members present at her bedside. At this time the patient is felt to be a high risk surgical candidate due to her recent hip surgery and other comorbidities. Dr. Barros discussed this with the patient and her family members present. Dr. Barros also discussed treatment options with Dr. MAAME Stallings and shared decision making was discussed and Dr. Stallings will proceed with PCI treatment. The patient and her family members also agree with the treatment plan. Continue to maximize medical management with aspirin, statin and beta-lauren. Heparin drip management per cardiology recommendations. We will continue to follow the patient on an as-needed basis please feel free to reconsult. Medical management of other comorbidities per primary care service. Thank you Dr. Stallings for this consult. I have personally seen and examined the patient, performed the documentation and the assessment and plan as written. Number of minutes spent on the visit: 30. AIDAN Fulton
--- NOTE | 2024-06-12 15:40 | P.PN ---
Subjective Progress Note Date: 06/12/24 Hospital Course: Patient is a 79-year-old female with a history of A-fib on Eliquis, hypertension, breast cancer status post lumpectomy, Sjogren's disease and recent left total hip arthroplasty on 05/07/[address] Melendez presented to ER on 06/07/2024 for progressively worsening dyspnea since 1 week. Patient reports exertional dyspnea since 1 week associated with bilateral leg swelling, orthopnea and PND. Patient had recent follow-up with orthopedic Dr. Melendez and cardiology Dr. Stallings. Patient denies chest pain, abdominal pain, nausea, vomiting, diarrhea or constipation, fever, chills, numbness/weakness/tingling in upper or lower extremities. Patient denies any recent travel or upper respirat ory tract infection. Initial evaluation in the ER shows WBC 4.4, hemoglobin 10.4, MCV 103.5, sodium 135, potassium 4.1, chloride 101, bicarb 26, BUN 17, creatinine 0.72, glucose 114, ALP 208, AST 33, ALT 16, NT proBNP 8130. D-dimer 2.76 mg/L Chest x-ray done in the ER shows moderate bilateral pleural effusions with diffuse airspace opacities. EKG done in the ER shows sinus rhythm with occasional supraventricular premature complexes with heart rate of 65 bpm, WV interval 144 ms, QRS duration 78 ms, QTc duration 420 ms. Normal R wave progression. No ST to T wave changes noted. Vital signs on arrival shows 98.0 F, pulse rate 61, respiratory 18, blood pressure 172/74, oxygen saturation 93% on room air. Subsequent vital signs show pulse rate 66, respiratory rate 18, blood pressure 1 5462, oxygen saturation 97% on 2 L via nasal cannula. Subjective: Patient seen and examined at the bedside. No acute events overnight. Patient underwent RAFAT yesterday which shows severe pulmonary hypertension with RVSP estimated more than 60 mmHg, severe RA dilatation and moderate RV dilatation and moderate TR. Patient underwent patient left heart catheterization and coronary angiography which showed multivessel CAD. Patient is a high risk surgical candidate for CABG. Patient to undergo PCI tomorrow. Patient denies shortness of breath and chest pain. Patient is currently saturating well on room air. All Systems reviewed and pertinent positives and negatives noted in HPI, all other symptoms are negative Objective: Vital signs reviewed General: non toxic, no distress, appears at stated age, normal weight Derm: no unusual rashes/lesions, warm Head: atraumatic, normocephalic, symmetric Eyes: EOMI, no lid lag, anicteric sclera, pupils equal round reactive to light ENT: Nose and ears atraumatic Neck: No cervical lymphadenopathy, trachea midline, supple Mouth: no lip lesion, mucus membranes moist Cardiovascular: S1S2 reg, no murmur, positive dorsalis pedis pulse bilateral, 1+ bilateral lower extremity edema Lungs: Mild crackles on the left lung base, no wheezing, no use of accessory muscles. Abdominal: soft, nontender to palpation, no guarding Ext: muscle strength 5 out of 5 in all 4 extremities grossly, no gross muscle atrophy, no contractures, Neuro: CN II-XI grossly intact, no gross focal neuro deficits Psych: Alert, oriented, appropriate affect Data reviewed today: Pertinent Labs: WBC 6.7, hemoglobin 10.9, platelet count 282, PT 12.7, INR 1.2, MCV 84.9, sodium 130, potassium 2.8, Images: Chest x-ray shows improved vascular congestion with mild right basilar e ffusion. Assessment and Plan: #Multivessel CAD #Acute diastolic congestive heart failure #Severe pulmonary hypertension Oxygen therapy as needed Continue Lasix 40 mg p.o. twice daily Echo done on 05/12/2024 shows LVEF 60 to 65%. Moderate mitral stenosis with severe pulmonary hypertension. Limited echo done on 06/08/2024 shows LVEF 55 to 60%. Moderate to severe TR with moderate to severe pulmonary hypertension Right heart cath on 06/10/2024 shows mean pulmonary arterial pressure of 27. Cardiology on board, appreciate recs GDMT: Metoprolol increased to 100 mg p.o. twice daily, Hyzaar 50-12.5 mg p.o. daily consider adding SGLT2i, and MRA Continue with amiodarone 200 mg p.o. daily I's and O's and daily weights Fluid restriction to 1500 mL/day Lipid panel: LDL 63.9, HDL 93.3, triglyceride 94.10, cholesterol 176 TSH 0.615 on 05/12/2024 PCI planned for tomorrow Pulmonary on board, appreciate recs #Hyperkalemia Potassium replacement protocol Patient given KCl 20 mg every 3 hours Monitor BMP in the evening #Elevated D-dimer, PE ruled out CT chest angio done on 06/08/2024 negative for pulm embolism Continue with Eliquis 5 mg p.o. twice daily #Elevated alkaline phosphatase, resolved GGT 48 #Hyperglycemia, resolved #Macrocytic anemia Vitamin B12 579 and folate 40 on 04/28/2024 Continue monitor Chronic conditions: Hypertension: Resume Norvasc 5 mg p.o. at bedtime Atrial fibrillation: Resume Eliquis 5 mg twice daily and metoprolol Sjogren's disease: Resume Restasis 0.05% ophthalmic eyedrops Order CBC and BMP tomorrow a.m. DVT prophylaxis: Heparin drip GI prophylaxis: None F: None E: Replete as needed N: Heart healthy diet A: Ambulatory at baseline CODE STATUS: Full code Discussed with: Patient Anticipated discharge place: Pending clinical course Dictation was produced using [employer] dictation software. Please excuse any g rammatical, word or spelling errors. Attestation I have seen and examined this patient with my resident , discussed the same with the resident/YESSY, and agree with the dictator's assessment and plan as written Dr. Dale awad Objective - Vital Signs Vital signs: Vital Signs Temp 98.2 F 06/12/24 07:50 Pulse 58 L 06/12/24 15:07 Resp 14 06/12/24 15:07 BP 106/58 06/12/24 15:07 Pulse Ox 94 L 06/12/24 15:07 FiO2 Intake & Output 06/11/24 06/12/24 06/12/24 18:59 06:59 18:59 Intake Total 280 102 Balance 280 102 Weight 54.1 kg Intake: IV 100 102 Oral 180 Other: Voiding Method Toilet Toilet Toilet # Voids 1 2 3 # Bowel Movements 1 - Labs CBC & Chem 7: 06/16/24 07:22 06/16/24 07:22 Labs: Abnormal Lab Results - Last 24 Hours (Table) 06/12/24 06/12/24 06/12/24 Range/Units 06:36 07:54 12:23 RBC 3.57 L (3.80-5.40) m/uL Hgb 10.9 L (11.4-16.0) gm/dL MCHC 30.8 L (31.0-37.0) g/dL RDW 16.7 H (11.5-15.5) % Lymphocytes # (Manual) 0.80 L (1.0-4.8) k/uL PT 12.7 H (10.0-12.5) sec INR 1.2 H (<1.2) APTT 84.9 H (22.0-30.0) sec Sodium 127 L (137-145) mmol/L Potassium 3.2 L (3.5-5.1) mmol/L Chloride 86 L (98-107) mmol/L Carbon Dioxide 36 H (22-30) mmol/L BUN 21 H (7-17) mg/dL Creatinine 1.06 H (0.52-1.04) mg/dL Glucose 100 H (74-99) mg/dL Calcium (8.4-10.2) mg/dL Total Protein (6.3-8.2) g/dL Albumin (3.5-5.0) g/dL 06/12/24 Range/Units 12:23 RBC (3.80-5.40) m/uL Hgb (11.4-16.0) gm/dL MCHC (31.0-37.0) g/dL RDW (11.5-15.5) % Lymphocytes # (Manual) (1.0-4.8) k/uL PT (10.0-12.5) sec INR (<1.2) APTT (22.0-30.0) sec Sodium 130 L (137-145) mmol/L Potassium 2.8 L (3.5-5.1) mmol/L Chloride (98-107) mmol/L Carbon Dioxide (22-30) mmol/L BUN (7-17) mg/dL Creatinine (0.52-1.04) mg/dL Glucose (74-99) mg/dL Calcium 6.9 L (8.4-10.2) mg/dL Total Protein 5.7 L (6.3-8.2) g/dL Albumin 2.7 L (3.5-5.0) g/dL
--- NOTE | 2024-06-12 15:42 | P.PN ---
Subjective Progress Note Date: 06/12/24 Principal diagnosis: Acute hypoxic respiratory failure secondary to acute exacerbation of diastolic congestive heart failure and right-sided pleural effusion Patient is an 79-year-old female with past medical history significant for Sjogren's disease, breast cancer with previous lumpectomy, hypertension, atrial fibrillation, and left hip total arthroplasty. Of note, patient had a fall in April, resulting in dislocation of left hip total arthroplasty. Following this, had open reduction of the left total hip arthroplasty. During that hospitalization, found to be in new onset atrial fibrillation with RVR. She is anticoagulated on Eliquis. Also, takes amiodarone 200 mg p.o. daily and metoprolol 100 mg p.o. twice daily. Echocardiogram done April, showing preserved left ventricular ejection fraction, moderate mitral stenosis, and severe pulmonary hypertension. Return to the emergency department back on 06/07/2024 with chief complaint of several days of worsening dyspnea. Associated bilateral lower extremity swelling. Denies chest pain. States she has been compliant with her Eliquis. Denied infectious symptoms. Workup in the emergency department including cardiomegaly, pulmonary vascular congestion, and small to moderate-sized bilateral pleural effusions. CBC: WBC count 3, hemoglobin 10.9, hematocrit 36.9, platelets 337. CMP: Sodium 135, potassium 4.1, chloride 94, serum bicarb 39, BUN 13, creatinine 1.02, glucose 138. NT proBNP elevated at 8130. Troponin 0.024. EKG sinus mechanism on arrival, rate 65 bpm, frequent PACs, no obvious acute ischemic changes. Elevated D-dimer in setting CT angio protocol did which did not show any filling defects consistent with pulmonary embolism. There is cardiomegaly with moderate right and small left pleural effusion with pulmonary vascular congestion suggestive of congestive heart failure/volume overload. Moderate to severe coronary artery atherosclerosis. Follow-up echocardiogram this admission again estimating a preserved left ventricular ejection fraction, dilated right ventricle with moderate to severe tricuspid regurgitation and moderate-severe pulmonary hypertension. Patient reportedly scheduled for heart catheterization tomorrow. Patient currently being evaluated in the cardiac stepdown unit. She is resting comfortably on 2 L/min nasal cannula. No respiratory distress. Currently, receiving p.o. Lasix 40 mg twice daily. She states she is voiding often. She has lower extremity swelling. Lower extremity venous Doppler negative for DVTs bilaterally. Endorses orthopnea. Denies any chest pain, heart palpitations, lightheadedness or syncopal events since April. Denies infectious-like symptoms. Current vital signs: Temperature 98 F, heart rate 60 bpm, blood pressure 134/72 mmHg, nontachypneic, SpO2 was recorded at 95% on 2 L/min nasal cannula. The patient is seen today June 11, 2024 in follow-up on the selective care unit. She is currently up ambulating with her walker and assistance in her room. Awake and alert in no acute distress. Denies any worsening shortness of breath, cough or congestion. No chest pain or palpitations. She is maintaining O2 saturations in the high 90s on 2 L/min per nasal cannula. She has been afebrile. Hemodynamically stable. She did undergo a right heart catheterization 06/10/2024 and was found to have severe pulmonary hypertension and moderate tricuspid regurgitation. Plan is for transesophageal echoca rdiogram today and left heart catheterization tomorrow. Her Eliquis is currently on hold. White count 4.6. Hemoglobin 10.7. Platelets 312. Sodium 131. Potassium 4.2. Bicarb 37. BUN 17. Creatinine 1.05. Remains on Lasix 40 mg twice daily. Continued on amiodarone and Lopressor. Patient was seen today on 06/12/2024, patient underwent cardiac catheterization,, cardiology is recommending bypass surgery with HAM to LAD and vein graft to the obtuse marginal and PLV branch of circumflex. Has cardiothoracic surgery was consulted, and Dr. Barros felt that the patient is not the most ideal candidate for myocardial revascularization, hence patient may have to be considered for stenting of the LAD and circumflex systems. Cardiology may have to address that issue after the recommendation from thoracic surgery. Pulmonary veloz patient is doing well, does not seem to be in any distress. On room air, O2 sats is 94%, she does have a small right pleural effusion, felt to be cardiac effusion unless proven otherwise, she did improve with diuretics, no immediate plans for thoracentesis, considering the patient is not symptomatic and she is on room air. Labs today were reviewed, she does have a PTT of 84.9, patient is on heparin. Objective - Vital Signs Vital signs: Vital Signs Temp 98.2 F 06/12/24 07:50 Pulse 58 L 06/12/24 15:07 Resp 14 06/12/24 15:07 BP 106/58 06/12/24 15:07 Pulse Ox 94 L 06/12/24 15:07 FiO2 Intake & Output 06/11/24 06/12/24 06/12/24 18:59 06:59 18:59 Intake Total 280 102 Balance 280 102 Weight 54.1 kg Intake: IV 100 102 Oral 180 Other: Voiding Method Toilet Toilet Toilet # Voids 1 2 3 # Bowel Movements 1 - Exam GENERAL EXAM: Revealed 79-year-old female in no distress, on room air HEAD: Normocephalic. EYES: Normal reaction of pupils, equal size. NOSE: Clear with pink turbinates. THROAT: No erythema or exudates. NECK: No masses, no JVD. CHEST: No chest wall deformity. LUNGS: Diminished breath sounds at the right base. CVS: S1 and S2 normal with no audible murmur, regular rhythm. ABDOMEN: No hepatosplenomegaly, normal bowel sounds, no guarding or rigidity. SKIN: No rashes CENTRAL NERVOUS SYSTEM: Alert oriented x 3 no focal deficit EXTREMITIES: No clubbing edema or cyanosis - Labs CBC & Chem 7: 06/12/24 06:36 06/12/24 12:23 Labs: Abnormal Lab Results - Last 24 Hours (Table) 06/12/24 06/12/24 06/12/24 Range/Units 06:36 07:54 12:23 RBC 3.57 L (3.80-5.40) m/uL Hgb 10.9 L (11.4-16.0) gm/dL MCHC 30.8 L (31.0-37.0) g/dL RDW 16.7 H (11.5-15.5) % Lymphocytes # (Manual) 0.80 L (1.0-4.8) k/uL PT 12.7 H (10.0-12.5) sec INR 1.2 H (<1.2) APTT 84.9 H (22.0-30.0) sec Sodium 127 L (137-145) mmol/L Potassium 3.2 L (3.5-5.1) mmol/L Chloride 86 L (98-107) mmol/L Carbon Dioxide 36 H (22-30) mmol/L BUN 21 H (7-17) mg/dL Creatinine 1.06 H (0.52-1.04) mg/dL Glucose 100 H (74-99) mg/dL Calcium (8.4-10.2) mg/dL Total Protein (6.3-8.2) g/dL Albumin (3.5-5.0) g/dL 06/12/24 Range/Units 12:23 RBC (3.80-5.40) m/uL Hgb (11.4-16.0) gm/dL MCHC (31.0-37.0) g/dL RDW (11.5-15.5) % Lymphocytes # (Manual) (1.0-4.8) k/uL PT (10.0-12.5) sec INR (<1.2) APTT (22.0-30.0) sec Sodium 130 L (137-145) mmol/L Potassium 2.8 L (3.5-5.1) mmol/L Chloride (98-107) mmol/L Carbon Dioxide (22-30) mmol/L BUN (7-17) mg/dL Creatinine (0.52-1.04) mg/dL Glucose (74-99) mg/dL Calcium 6.9 L (8.4-10.2) mg/dL Total Protein 5.7 L (6.3-8.2) g/dL Albumin 2.7 L (3.5-5.0) g/dL Assessment and Plan Assessment: Impression: Acute hypoxic respiratory failure secondary to acute exacerbation of diastolic congestive heart failure and right-sided pleural effusion Coronary artery disease, patient is now being considered for stent placement, patient was seen by cardiothoracic surgery did not feel the patient is an ideal surgical candidate. History of heart failure with preserved ejection fraction, echocardiogram done April, showing preserved left ventricular ejection fraction, moderate mitral stenosis, and severe pulmonary hypertension. RVSP 78 mmHg Paroxysmal atrial fibrillation, currently sinus mechanism, anticoagulated on Eliquis, also receiving metoprolol 100 mg twice daily and amiodarone 200 mg dailyHypertension History of left total hip arthroplasty History of fall resulting in dislocation of left hip total arthroplasty. Following this, had open reduction of the left total hip arthroplasty. Elevated D-dimer, chest CT angio did not show any obvious filling defects consistent with pulmonary embolism. Venous Doppler bilateral lower extremities negative for DVTs Anemia, without any obvious acute blood loss History of Sjogren's disease History of breast cancer with previous lumpectomy Recommendation: Reviewed the results of the cardiac catheterization Reviewed different notes from different consultants including cardiology and RAFAT findings. Reviewed the notes from cardiothoracic surgery Patient may have to be considered for stent placement at this point, and that will be addressed by cardiology In the meantime we will continue to hold on thoracentesis, continue anticoagulation therapy, Gentle diuresis Will continue to follow. Time with Patient: Less than 30
[2024-06-12] MEDS ORDERED: ALPRAZolam 0.25 MG TAB PO PRN (15:43)
[2024-06-12] MEDS ORDERED: NITROGLYCERIN SL TABS 0.4 MG TAB SUBLINGUAL PRN (15:43)
[2024-06-12] MEDS ORDERED: ALPRAZolam 0.5 MG TAB PO PRN (15:43)
[2024-06-12] MEDS: POTASSIUM CHLORIDE ER 20 MEQ TAB.ER PO SCH (15:53)
[2024-06-12 16:56] LABS: Hepatitis A Antibody IgM Nonreactive (Nonreactive); Hepatitis B Core IgM Nonreactive (Nonreactive); Hepatitis B Surface Antigen Nonreactive (Nonreactive); Hepatitis C IgG Antibody Nonreactive (Nonreactive)
[2024-06-12] MEDS: HEPARIN SODIUM 1,000 UN/ML (10ML VL) IV PRN (20:57)
[2024-06-12 20:59] LABS: African American GFR (CKD) 66 (>60 ml/min/1.73 sqM); Anion Gap 7 mmol/L; Blood Urea Nitrogen 25 mg/dL (7-17); Calcium 8.2 mg/dL (8.4-10.2); Carbon Dioxide 33 mmol/L (22-30); Chloride 87 mmol/L (98-107); Glucose 109 mg/dL (74-99); Non-African American GFR(CKD) 57 (>60 ml/min/1.73 sqM); Potassium 3.7 mmol/L (3.5-5.1); Sodium 127 mmol/L (137-145)
[2024-06-12] MEDS ORDERED: APIXABAN 5 MG TAB PO SCH (21:00)
[2024-06-13 02:49] LABS: Anisocytosis Slight; Basophils % (A) 0 %; Eosinophils # (A) 0.1 k/uL (0-0.7); Eosinophils % (A) 1 %; HCT 32.1 % (34.0-46.0); HGB 10.1 gm/dL (11.4-16.0); Hypochromasia Marked; Lymphocytes % (A) 16 %; MCH 30.7 pg (25.0-35.0); MCHC 31.5 g/dL (31.0-37.0); MCV 97.6 fL (80.0-100.0); Macrocytosis Slight; Mean Platelet Volume 7.1; Monocytes # (A) 0.5 k/uL (0-1.0); Monocytes % (A) 8 %; Neutrophils # (A) 4.2 k/uL (1.3-7.7); Neutrophils % (A) 70 %; Platelet Count 278 k/uL (150-450); RBC 3.28 m/uL (3.80-5.40); RDW 16.2 % (11.5-15.5)
[2024-06-13 03:15] LABS: INR 1.1 (<1.2); Prothrombin Time 11.7 sec (10.0-12.5)
[2024-06-13 04:27] LABS: African American GFR (CKD) 68 (>60 ml/min/1.73 sqM); Anion Gap 2 mmol/L; Blood Urea Nitrogen 24 mg/dL (7-17); Calcium 8.5 mg/dL (8.4-10.2); Carbon Dioxide 32 mmol/L (22-30); Chloride 93 mmol/L (98-107); Glucose 90 mg/dL (74-99); Non-African American GFR(CKD) 59 (>60 ml/min/1.73 sqM); Sodium 127 mmol/L (137-145)
[2024-06-13] MEDS ORDERED: ASPIRIN 325 MG TAB PO ONE (06:00)
[2024-06-13] MEDS ORDERED: HEPARIN SODIUM,PORCINE (1 ML) 2,500 UNIT in SODIUM CHLORIDE 0.9% 250 ML IRRIGATION PRN (07:00)
[2024-06-13] MEDS ORDERED: HEPARIN SODIUM,PORCINE 10,000 UNIT in SODIUM CHLORIDE 0.9% 1,000 ML IRRIGATION PRN (07:00)
[2024-06-13] MEDS: LOSARTAN 50 MG TAB PO SCH (09:40)
[2024-06-13] MEDS: ATORVASTATIN 80 MG TAB PO SCH (09:40)
[2024-06-13] MEDS: ASPIRIN 81 MG PO SCH (11:52)
--- NOTE | 2024-06-13 13:33 | P.PN ---
Subjective Progress Note Date: 06/13/24 Hospital Course: Patient is a 79-year-old female with a history of A-fib on Eliquis, hypertension, breast cancer status post lumpectomy, Sjogren's disease and recent left total hip arthroplasty on 05/07/[address] Melendez presented to ER on 06/07/2024 for progressively worsening dyspnea since 1 week. Patient reports exertional dyspnea since 1 week associated with bilateral leg swelling, orthopnea and PND. Patient had recent follow-up with orthopedic Dr. Melendez and cardiology Dr. Stallings. Patient denies chest pain, abdominal pain, nausea, vomiting, diarrhea or constipation, fever, chills, numbness/weakness/tingling in upper or lower extremities. Patient denies any recent travel or upper respirat ory tract infection. Initial evaluation in the ER shows WBC 4.4, hemoglobin 10.4, MCV 103.5, sodium 135, potassium 4.1, chloride 101, bicarb 26, BUN 17, creatinine 0.72, glucose 114, ALP 208, AST 33, ALT 16, NT proBNP 8130. D-dimer 2.76 mg/L Chest x-ray done in the ER shows moderate bilateral pleural effusions with diffuse airspace opacities. EKG done in the ER shows sinus rhythm with occasional supraventricular premature complexes with heart rate of 65 bpm, [place] interval 144 ms, QRS duration 78 ms, QTc duration 420 ms. Normal R wave progression. No ST to T wave changes noted. Vital signs on arrival shows 98.0 F, pulse rate 61, respiratory 18, blood pressure 172/74, oxygen saturation 93% on room air. Subsequent vital signs show pulse rate 66, respiratory rate 18, blood pressure 1 5462, oxygen saturation 97% on 2 L via nasal cannula. Patient underwent RAFAT on 06/11/2024 which shows severe pulmonary hypertension with RVSP estimated more than 60 mmHg, severe RA dilatation and moderate RV dilatation and moderate TR. Patient underwent patient left heart catheterization and coronary angiography on 06/12/2024 which showed multivessel CAD. Patient is a high risk surgical candidate for CABG. Patient to undergo PCI on 06/15/2024. Subjective: Patient seen and examined at the bedside. No acute events overnight. Patient underwent RAFAT on 06/11/2024 which shows severe pulmonary hypertension with RVSP estimated more than 60 mmHg, severe RA dilatation and moderate RV dilatation and moderate TR. Patient underwent patient left heart catheterization and coronary angiography yesterday which showed multivessel CAD. Patient is a high risk surgical candidate for CABG. Patient to undergo PCI on Saturday. Patient denies shortness of breath and chest pain. Patient is currently saturating well on room air. All Systems reviewed and pertinent positives and negatives noted in HPI, all other symptoms are negative Objective: Vital signs reviewed General: non toxic, no distress, appears at stated age, normal weight Derm: no unusual rashes/lesions, warm Head: atraumatic, normocephalic, symmetric Eyes: EOMI, no lid lag, anicteric sclera, pupils equal round reactive to light ENT: Nose and ears atraumatic Neck: No cervical lymphadenopathy, trachea midline, supple Mouth: no lip lesion, mucus membranes moist Cardiovascular: S1S2 reg, no murmur, positive dorsalis pedis pulse bilateral, 1+ bilateral lower extremity edema Lungs: Mild crackles on the left lung base, no wheezing, no use of accessory muscles. Abdominal: soft, nontender to palpation, no guarding Ext: muscle strength 5 out of 5 in all 4 extremities grossly, no gross muscle atrophy, no contractures, Neuro: CN II-XI grossly intact, no gross focal neuro deficits Psych: Alert, oriented, appropriate affect Data reviewed today: Pertinent Labs: WBC 6.0, hemoglobin 10.1, sodium 127, potassium 4.0, chloride 93 , bicarb 32, BUN 24, creatinine 0.92 Images: No new imaging Assessment and Plan: #Multivessel CAD #Acute diastolic congestive heart failure #Severe pulmonary hypertension #Right-sided pleural effusion Oxygen therapy as needed Continue Lasix 40 mg p.o. once daily Echo done on 05/12/2024 shows LVEF 60 to 65%. Moderate mitral stenosis with severe pulmonary hypertension. Limited echo done on 06/08/2024 shows LVEF 55 to 60%. Moderate to severe TR with moderate to severe pulmonary hypertension Right heart cath on 06/10/2024 shows mean pulmonary arterial pressure of 27. Cardiology on board, appreciate recs, PCI planned for 06/15/2024 GDMT: Metoprolol 100 mg p.o. twice daily, Cozaar 50 mg p.o. daily, consider adding SGLT2i, and MRA Continue with amiodarone 200 mg p.o. daily I's and O's and daily weights Fluid restriction to 1500 mL/day Lipid panel: LDL 63.9, HDL 93.3, triglyceride 94.10, cholesterol 176 TSH 0.615 on 05/12/2024 Pulmonary on board, appreciate recs, no plans for intervention as of now #Hyperkalemia, resolved #Hypervolemic hyponatremia Potassium replacement protocol Fluid restrictions as above Continue monitor BMP #Elevated D-dimer, PE ruled out CT chest angio done on 06/08/2024 negative for pulm embolism Continue with Eliquis 5 mg p.o. twice daily #Elevated alkaline phosphatase, resolved GGT 48 #Hyperglycemia, resolved #Macrocytic anemia Vitamin B12 579 and folate 40 on 04/28/2024 Continue monitor Chronic conditions: Hypertension: Cozaar 50 mg p.o. daily Atrial fibrillation: Heparin drip and Lopressor milligram p.o. twice daily Sjogren's disease: Restasis 0.05% ophthalmic eyedrops Order CBC and BMP tomorrow a.m. DVT prophylaxis: Heparin drip GI prophylaxis: None F: None E: Replete as needed N: Heart healthy diet with fluid restriction A: Ambulatory at baseline CODE STATUS: Full code Discussed with: Patient Anticipated discharge place: Pending clinical course Dictation was produced using [employer] dictation software. Please excuse any grammatical, word or spelling errors. Objective - Vital Signs Vital signs: Vital Signs Temp 97.7 F 06/13/24 04:25 Pulse 65 06/13/24 04:25 Resp 16 06/13/24 04:25 BP 135/63 06/13/24 04:25 Pulse Ox 91 L 06/13/24 04:25 FiO2 Intake & Output 06/12/24 06/13/24 06/13/24 18:59 06:59 18:59 Intake Total 102 296.048 Balance 102 296.048 Weight 55.2 kg Intake: IV 102 Intake, IV Titration 56.048 Amount Heparin Sod,Pork in 0.45% 56.048 NaCl 25,000 unit In 0.45 % NaCl 1 250ml.bag @ 12 UNITS/KG/HR 6.492 mls/hr IV .Q24H MAGDY Rx#: [id number] Oral 240 Other: Voiding Method Toilet Toilet # Voids 3 1 - Labs CBC & Chem 7: 06/13/24 02:32 06/13/24 02:32 Labs: Abnormal Lab Results - Last 24 Hours (Table) 06/12/24 06/12/24 06/12/24 Range/Units 12:23 12:23 19:47 RBC (3.80-5.40) m/uL Hgb (11.4-16.0) gm/dL Hct (34.0-46.0) % RDW (11.5-15.5) % PT 12.7 H (10.0-12.5) sec INR 1.2 H (<1.2) APTT 84.9 H 36.8 H (22.0-30.0) sec Sodium 130 L (137-145) mmol/L Potassium 2.8 L (3.5-5.1) mmol/L Chloride (98-107) mmol/L Carbon Dioxide (22-30) mmol/L BUN (7-17) mg/dL Glucose (74-99) mg/dL Calcium 6.9 L (8.4-10.2) mg/dL Total Protein 5.7 L (6.3-8.2) g/dL Albumin 2.7 L (3.5-5.0) g/dL 06/12/24 06/13/24 06/13/24 Range/Units 19:47 02:32 02:32 RBC 3.28 L (3.80-5.40) m/uL Hgb 10.1 L (11.4-16.0) gm/dL Hct 32.1 L (34.0-46.0) % RDW 16.2 H (11.5-15.5) % PT (10.0-12.5) sec INR (<1.2) APTT (22.0-30.0) sec Sodium 127 L 127 L (137-145) mmol/L Potassium (3.5-5.1) mmol/L Chloride 87 L 93 L (98-107) mmol/L Carbon Dioxide 33 H 32 H (22-30) mmol/L BUN 25 H 24 H (7-17) mg/dL Glucose 109 H (74-99) mg/dL Calcium 8.2 L (8.4-10.2) mg/dL Total Protein (6.3-8.2) g/dL Albumin (3.5-5.0) g/dL 06/13/24 Range/Units 02:32 RBC (3.80-5.40) m/uL Hgb (11.4-16.0) gm/dL Hct (34.0-46.0) % RDW (11.5-15.5) % PT (10.0-12.5) sec INR (<1.2) APTT 68.3 H (22.0-30.0) sec Sodium (137-145) mmol/L Potassium (3.5-5.1) mmol/L Chloride (98-107) mmol/L Carbon Dioxide (22-30) mmol/L BUN (7-17) mg/dL Glucose (74-99) mg/dL Calcium (8.4-10.2) mg/dL Total Protein (6.3-8.2) g/dL Albumin (3.5-5.0) g/dL
--- NOTE | 2024-06-13 13:39 | P.PN ---
Subjective Progress Note Date: 06/13/24 Patient is an 79-year-old female with past medical history significant for Sjogren's disease, breast cancer with previous lumpectomy, hypertension, atrial fibrillation, and left hip total arthroplasty. Of note, patient had a fall in April, resulting in dislocation of left hip total arthroplasty. Following this, had open reduction of the left total hip arthroplasty. During that hospitalization, found to be in new onset atrial fibrillation with RVR. She is anticoagulated on Eliquis. Also, takes amiodarone 200 mg p.o. daily and metoprolol 100 mg p.o. twice daily. Echocardiogram done April, showing preserved left ventricular ejection fraction, moderate mitral stenosis, and severe pulmonary hypertension. Return to the emergency department back on 06/07/2024 with chief complaint of several days of worsening dyspnea. Associated bilateral lower extremity swelling. Denies chest pain. States she has been compliant with her Eliquis. Denied infectious symptoms. Workup in the emergency department including cardiomegaly, pulmonary vascular congestion, and small to moderate-sized bilateral pleural effusions. CBC: WBC count 3, hemoglobin 10.9, hematocrit 36.9, platelets 337. CMP: Sodium 135, potassium 4.1, chloride 94, serum bicarb 39, BUN 13, creatinine 1.02, glucose 138. NT proBNP elevated at 8130. Troponin 0.024. EKG sinus mechanism on arrival, rate 65 bpm, frequent PACs, no obvious acute ischemic changes. Elevated D-dimer in setting CT angio protocol did which did not show any filling defects consistent with pulmonary embolism. There is cardiomegaly with moderate right and small left pleural effusion with pulmonary vascular congestion suggestive of congesti ve heart failure/volume overload. Moderate to severe coronary artery atherosclerosis. Follow-up echocardiogram this admission again estimating a preserved left ventricular ejection fraction, dilated right ventricle with moderate to severe tricuspid regurgitation and moderate-severe pulmonary hyper tension. Patient reportedly scheduled for heart catheterization tomorrow. Patient currently being evaluated in the cardiac stepdown unit. She is resting comfortably on 2 L/min nasal cannula. No respiratory distress. Currently, receiving p.o. Lasix 40 mg twice daily. She states she is voiding often. She has lower extremity swelling. Lower extremity venous Doppler negative for DVTs bilaterally. Endorses orthopnea. Denies any chest pain, heart palpitations, lightheadedness or syncopal events since April. Denies infectious-like symptoms. Current vital signs: Temperature 98 F, heart rate 60 bpm, blood pressure 134/72 mmHg, nontachypneic, SpO2 was recorded at 95% on 2 L/min nasal c annula. The patient is seen today June 11, 2024 in follow-up on the selective care unit. She is currently up ambulating with her walker and assistance in her room. Awake and alert in no acute distress. Denies any worsening shortness of breath, cough or congestion. No chest pain or palpitations. She is maintaining O2 saturations in the high 90s on 2 L/min per nasal cannula. She has been afe brile. Hemodynamically stable. She did undergo a right heart catheterization 06/10/2024 and was found to have severe pulmonary hypertension and moderate tricuspid regurgitation. Plan is for transesophageal echocardiogram today and left heart catheterization tomorrow. Her Eliquis is currently on hold. White count 4.6. Hemoglobin 10.7. Platelets 312. Sodium 131. Potassium 4.2. Bicarb 37. BUN 17. Creatinine 1.05. Remains on Lasix 40 mg twice daily. Continued on amiodarone and Lopressor. Patient was seen today on 06/12/2024, patient underwent cardiac catheterization,, cardiology is recommending bypass surgery with HAM to LAD and vein graft to the obtuse marginal and PLV branch of circumflex. Has cardiothoracic surgery was consulted, and Dr. Barros felt that the patient is not the most ideal candidate for myocardial revascularization, hence patient may have to be considered for stenting of the LAD and circumflex systems. Cardiology may have to address that issue after the recommendation from thoracic surgery. Pulmonary veloz patient is doing well, does not seem to be in any distress. On room air, O2 sats is 94%, she does have a small right pleural effusion, felt to be cardiac effusion unless proven otherwise, she did improve with diuretics, no immediate plans for thor acentesis, considering the patient is not symptomatic and she is on room air. Labs today were reviewed, she does have a PTT of 84.9, patient is on heparin. The patient is seen today June 13, 2024 in follow-up on the selective care unit. She is currently sitting up in bed. Awake and alert in no acute distress. Denies any worsening shortness of breath, cough or congestion. Maintaining good O2 saturations in the 90s on room air. She denies any chest pain or palpitations. She is continued on a heparin drip. Remains on amiodarone. Remains on oral diuretics. White count 6.0. Hemoglobin 10.1. Platelets 278. Sodium 127. Potassium 4.0. Bicarb 32. BUN 24. Creatinine 0.92. Objective - Vital Signs Vital signs: Vital Signs Temp 97.7 F 06/13/24 04:25 Pulse 74 06/13/24 08:00 Resp 16 06/13/24 08:00 BP 117/56 06/13/24 08:00 Pulse Ox 96 06/13/24 08:00 FiO2 Intake & Output 06/12/24 06/13/24 06/13/24 18:59 06:59 18:59 Intake Total 102 296.048 240 Output Total 200 Balance 102 296.048 40 Weight 55.2 kg Intake: IV 102 Intake, IV Titration 56.048 Amount Heparin Sod,Pork in 0.45% 56.048 NaCl 25,000 unit In 0.45 % NaCl 1 250ml.bag @ 12 UNITS/KG/HR 6.492 mls/hr IV .Q24H [facility] Rx#: [id number] Oral 240 240 Output: Urine 200 Other: Voiding Method Toilet Toilet Toilet # Voids 3 1 - Exam GENERAL EXAM: Alert, pleasant 79-year-old female, on room air, fairly comfortable in no apparent distress. HEAD: Normocephalic. EYES: Normal reaction of pupils, equal size. NOSE: Clear with pink turbinates. THROAT: No erythema or exudates. NECK: No masses, no JVD. CHEST: No chest wall deformity. LUNGS: Equal air entry with crackles in the bilateral bases right greater than left. CVS: S1 and S2 normal with no audible murmur, regular rhythm. ABDOMEN: No hepatosplenomegaly, normal bowel sounds, no guarding or rigidity. SPINE: No scoliosis or deformity SKIN: No rashes CENTRAL NERVOUS SYSTEM: No focal deficits, tone is normal in all 4 extremities. EXTREMITIES: There is no peripheral edema. No clubbing, no cyanosis. Peripheral pulses are intact. - Labs CBC & Chem 7: 06/13/24 02:32 06/13/24 02:32 Labs: Abnormal Lab Results - Last 24 Hours (Table) 06/12/24 06/12/2425 Range/Units 19:47 19:47 02:32 RBC 3.28 L (3.80-5.40) m/uL Hgb 10.1 L (11.4-16.0) gm/dL Hct 32.1 L (34.0-46.0) % RDW 16.2 H (11.5-15.5) % APTT 36.8 H (22.0-30.0) sec Sodium 127 L (137-145) mmol/L Chloride 87 L (98-107) mmol/L Carbon Dioxide 33 H (22-30) mmol/L BUN 25 H (7-17) mg/dL Glucose 109 H (74-99) mg/dL Calcium 8.2 L (8.4-10.2) mg/dL 06/13/24 06/13/24 Range/Units 02:32 02:32 RBC (3.80-5.40) m/uL Hgb (11.4-16.0) gm/dL Hct (34.0-46.0) % RDW (11.5-15.5) % APTT 68.3 H (22.0-30.0) sec Sodium 127 L (137-145) mmol/L Chloride 93 L (98-107) mmol/L Carbon Dioxide 32 H (22-30) mmol/L BUN 24 H (7-17) mg/dL Glucose (74-99) mg/dL Calcium (8.4-10.2) mg/dL Assessment and Plan Assessment: Acute exacerbation of diastolic congestive heart failure, chest CT angio protocol did which did not show any filling defects consistent with pulmonary embolism. There is cardiomegaly with moderate right and small left pleural effusion with pulmonary vascular congestion suggestive of congestive heart failure/volume overload. Moderate to severe coronary artery atherosclerosis. NT-proBNP significantly elevated. Acute hypoxemic respiratory failure secondary to above, recovered and on room air Coronary artery disease, plan is for stent placement on June 15, 2024, patient was seen by cardiothoracic surgery who did not feel the patient is an ideal surgical candidate. Remains on a heparin drip History of heart failure with preserved ejection fraction, echocardiogram done April, showing preserved left ventricular ejection fraction, moderate mitral stenosis, and severe pulmonary hypertension. RVSP 78 mmHg Paroxysmal atrial fibrillation, currently sinus mechanism, anticoagulated on Eliquis, also receiving metoprolol 100 mg twice daily and amiodarone 200 mg daily Hypertension History of left total hip arthroplasty History of fall resulting in dislocation of left hip total arthroplasty. Following this, had open reduction of the left total hip arthroplasty. Elevated D-dimer, chest CT angio did not show any obvious filling defects consistent with pulmonary embolism. Venous Doppler bilateral lower extremities negative for DVTs Anemia, without any obvious acute blood loss History of Sjogren's disease History of breast cancer with previous lumpectomy Plan: The patient was seen and evaluated Labs and medications reviewed Remains on a heparin drip Plan is for stent placements June 15, 2024 Remains on aspirin, statins, beta-blockers and ARB Remains on oral diuretics Follow-up chest x-ray 06/15/2024 No plans for thoracentesis at this time The patient remains stable and on room air No pulmonary complaints Will continue to follow I have personally seen and examined the patient, performed the documentation and the assessment and plan as written. Number of minutes spent on the visit: 10 Dictation was produced using [employer] dictation software. Please excuse any gra mmatical, word or spelling errors.
--- NOTE | 2024-06-13 13:50 | P.PN ---
Subjective Progress Note Date: 06/13/24 Patient is an 79-year-old female with multiple comorbid conditions, who presented to the hospital with worsening shortness of breath. Patient underwent right heart cath which revealed moderate to severe pulmonary hypertension. RAFAT revealed severe pulmonary hypertension with moderate tricuspid regurgitation and evidence of right sided heart failure. Coronary angiogram thereafter found multivessel coronary artery disease with ischemia noted in LAD territory. Surgical consult was placed to CV surgery, which she was deemed too high risk of a candidate for coronary bypass. Patient's primary refrigeration service inspector Dr. MAAME Stallings will perform staged stenting of both the LAD and circumflex early next week. Patient interviewed and examined resting comfortably in the recliner chair. Plan was discussed in detail with the patient and her son. No additional questions at this time GENERAL: Well-appearing, well-nourished and in no acute distress. NECK: Supple without JVD or thyromegaly. LUNGS: Breath sounds diminished to auscultation bilaterally. Respiration equal and unlabored. No wheezes, rales or rhonchi. HEART: Regular rate and rhythm. Soft systolic murmur. No rubs or gallops. S1 and S2 heard. EXTREMITIES: Normal range of motion, no edema. No clubbing or cyanosis. Peripheral pulses intact and strong. TELEMETRY: Sinus rhythm overnight LABS: WBC 6.0, hemoglobin 10.1, hematocrit 32.1, platelet 270, sodium 127, potassium 4.0, BUN 24, creatinine 0.92 IMPRESSION: Acute heart failure with preserved EF Multivessel coronary artery disease, ischemia noted in LAD territory Severe pulmonary hypertension Moderate tricuspid regurgitation Paroxysmal atrial fibrillation, currently in sinus rhythm Hypertension Hyperlipidemia PLAN: Continue heparin drip Continue low-dose aspirin N.p.o. after midnight on Saturday for planned PCI of the LAD on Saturday with Dr. MAAME Stallings I am dictating on behalf of Dr Landon Garcia's history/physical and assessment/plan. Objective - Vital Signs Vital signs: Vital Signs Temp 97.7 F 06/13/24 04:25 Pulse 65 06/13/24 04:25 Resp 16 06/13/24 04:25 BP 135/63 06/13/24 04:25 Pulse Ox 91 L 06/13/24 04:25 FiO2 Intake & Output 06/12/24 06/13/24 06/13/24 18:59 06:59 18:59 Intake Total 102 296.048 Balance 102 296.048 Weight 55.2 kg Intake: IV 102 Intake, IV Titration 56.048 Amount Heparin Sod,Pork in 0.45% 56.048 NaCl 25,000 unit In 0.45 % NaCl 1 250ml.bag @ 12 UNITS/KG/HR 6.492 mls/hr IV .Q24H [facility] Rx#: [id number] Oral 240 Other: Voiding Method Toilet Toilet # Voids 3 1 - Labs CBC & Chem 7: 06/13/24 02:32 06/13/24 02:32 Labs: Abnormal Lab Results - Last 24 Hours (Table) 06/12/24 06/12/24 06/12/24 Range/Units 12:23 12:23 19:47 RBC (3.80-5.40) m/uL Hgb (11.4-16.0) gm/dL Hct (34.0-46.0) % RDW (11.5-15.5) % PT 12.7 H (10.0-12.5) sec INR 1.2 H (<1.2) APTT 84.9 H 36.8 H (22.0-30.0) sec Sodium 130 L (137-145) mmol/L Potassium 2.8 L (3.5-5.1) mmol/L Chloride (98-107) mmol/L Carbon Dioxide (22-30) mmol/L BUN (7-17) mg/dL Glucose (74-99) mg/dL Calcium 6.9 L (8.4-10.2) mg/dL Total Protein 5.7 L (6.3-8.2) g/dL Albumin 2.7 L (3.5-5.0) g/dL 06/12/24 06/13/24 06/13/24 Range/Units 19:47 02:32 02:32 RBC 3.28 L (3.80-5.40) m/uL Hgb 10.1 L (11.4-16.0) gm/dL Hct 32.1 L (34.0-46.0) % RDW 16.2 H (11.5-15.5) % PT (10.0-12.5) sec INR (<1.2) APTT (22.0-30.0) sec Sodium 127 L 127 L (137-145) mmol/L Potassium (3.5-5.1) mmol/L Chloride 87 L 93 L (98-107) mmol/L Carbon Dioxide 33 H 32 H (22-30) mmol/L BUN 25 H 24 H (7-17) mg/dL Glucose 109 H (74-99) mg/dL Calcium 8.2 L (8.4-10.2) mg/dL Total Protein (6.3-8.2) g/dL Albumin (3.5-5.0) g/dL 06/13/24 Range/Units 02:32 RBC (3.80-5.40) m/uL Hgb (11.4-16.0) gm/dL Hct (34.0-46.0) % RDW (11.5-15.5) % PT (10.0-12.5) sec INR (<1.2) APTT 68.3 H (22.0-30.0) sec Sodium (137-145) mmol/L Potassium (3.5-5.1) mmol/L Chloride (98-107) mmol/L Carbon Dioxide (22-30) mmol/L BUN (7-17) mg/dL Glucose (74-99) mg/dL Calcium (8.4-10.2) mg/dL Total Protein (6.3-8.2) g/dL Albumin (3.5-5.0) g/dL
[2024-06-14] MEDS ORDERED: HEPARIN SODIUM,PORCINE (1 ML) 2,500 UNIT in SODIUM CHLORIDE 0.9% 250 ML IRRIGATION PRN (07:00)
[2024-06-14] MEDS ORDERED: HEPARIN SODIUM,PORCINE 10,000 UNIT in SODIUM CHLORIDE 0.9% 1,000 ML IRRIGATION PRN (07:00)
[2024-06-14 07:34] LABS: Anisocytosis Slight; Basophils % (A) 0 %; Eosinophils # (A) 0.1 k/uL (0-0.7); Eosinophils % (A) 2 %; HCT 32.9 % (34.0-46.0); HGB 10.4 gm/dL (11.4-16.0); Hypochromasia Marked; Lymphocytes # (A) 0.7 k/uL (1.0-4.8); Lymphocytes % (A) 13 %; MCHC 31.5 g/dL (31.0-37.0); MCV 98.3 fL (80.0-100.0); Macrocytosis Slight; Mean Platelet Volume 7.1; Monocytes # (A) 0.5 k/uL (0-1.0); Monocytes % (A) 9 %; Neutrophils % (A) 74 %; Platelet Count 299 k/uL (150-450); RBC 3.34 m/uL (3.80-5.40); RDW 16.1 % (11.5-15.5); WBC 5.4 k/uL (3.8-10.6)
[2024-06-14 07:49] LABS: African American GFR (CKD) 74 (>60 ml/min/1.73 sqM); Anion Gap 7 mmol/L; Blood Urea Nitrogen 19 mg/dL (7-17); Calcium 8.6 mg/dL (8.4-10.2); Carbon Dioxide 30 mmol/L (22-30); Chloride 95 mmol/L (98-107); Glucose 96 mg/dL (74-99); Magnesium 2.1 mg/dL (1.6-2.3); Non-African American GFR(CKD) 64 (>60 ml/min/1.73 sqM); Potassium 3.9 mmol/L (3.5-5.1); Sodium 132 mmol/L (137-145)
--- NOTE | 2024-06-14 12:31 | P.PN ---
Subjective Progress Note Date: 06/14/24 The patient is an 79-year-old female with multiple comorbid conditions, who presented to the hospital with worsening shortness of breath. Patient underwent right heart cath which revealed moderate to severe pulmonary hypertension. RAFAT revealed severe pulmonary hypertension with moderate tricuspid regurgitation and evidence of right sided heart failure. Coronary angiogram thereafter found multivessel coronary artery disease with ischemia noted in LAD territory. Surgical consult was placed to CV surgery, which she was deemed too high risk of a candidate for coronary bypass. Patient's primary splitter machine Dr. MAAME Stallings will perform staged stenting of both the LAD and circumflex tomorrow. Patient interviewed and examined resting in bed. Patient has no additional questions or concerns in regards to upcoming left heart cath tomorrow with Dr. MAAME Stallings. No chest pain overnight. No difficulty breathing currently GENERAL: Well-appearing, well-nourished and in no acute distress. NECK: Supple without JVD or thyromegaly. LUNGS: Breath sounds diminished to auscultation bilaterally. Respiration equal and unlabored. No wheezes, rales or rhonchi. HEART: Regular rate and rhythm. Soft systolic murmur. No rubs or gallops. S1 and S2 heard. EXTREMITIES: Normal range of motion, no edema. No clubbing or cyanosis. Peripheral pulses intact and strong. TELEMETRY: Sinus rhythm overnight LABS: WBC 5.4, hemoglobin 10.4, hematocrit 32.9, platelet 299, sodium 132, potassium 3.9, BUN 19, creatinine 0.86 IMPRESSION: Acute heart failure with preserved EF Multivessel coronary artery disease, ischemia noted in LAD territory Severe pulmonary hypertension Moderate tricuspid regurgitation Paroxysmal atrial fibrillation, currently in sinus rhythm Hypertension Hyperlipidemia PLAN: Continue heparin drip N.p.o. after midnight on Saturday for planned PCI of the LAD tomorrow with Dr. MAAME Stallings I am dictating on behalf of Dr Landon Garcia's history/physical and assessment/plan. Objective - Vital Signs Vital signs: Vital Signs Temp 97.6 F 06/14/24 04:40 Pulse 60 06/14/24 12:00 Resp 18 06/14/24 12:00 BP 123/66 06/14/24 12:00 Pulse Ox 98 06/14/24 12:00 FiO2 Intake & Output 03/22/25 03/23/25 03/23/25 18:59 06:59 18:59 Intake Total 883.472 240 Output Total 200 Balance 683.472 240 Weight 54.7 kg Intake: Intake, IV Titration 163.472 Amount Heparin Sod,Pork in 0.45% 163.472 NaCl 25,000 unit In 0.45 % NaCl 1 250ml.bag @ 12 UNITS/KG/HR 6.492 mls/hr IV .Q24H [facility] Rx#: [id number] Oral 720 240 Output: Urine 200 Other: Voiding Method Toilet Toilet Toilet # Voids 1 2 - Labs CBC & Chem 7: 06/14/24 06:59 06/14/24 06:59 Labs: Abnormal Lab Results - Last 24 Hours (Table) 06/14/24 06/14/24 06/14/24 Range/Units 06:59 06:59 06:59 RBC 3.34 L (3.80-5.40) m/uL Hgb 10.4 L (11.4-16.0) gm/dL Hct 32.9 L (34.0-46.0) % RDW 16.1 H (11.5-15.5) % Lymphocytes # 0.7 L (1.0-4.8) k/uL APTT 50.6 H (22.0-30.0) sec Sodium 132 L (137-145) mmol/L Chloride 95 L (98-107) mmol/L BUN 19 H (7-17) mg/dL
--- NOTE | 2024-06-14 13:54 | P.PN ---
Subjective Progress Note Date: 06/14/24 Patient is an 79-year-old female with past medical history significant for Sjogren's disease, breast cancer with previous lumpectomy, hypertension, atrial fibrillation, and left hip total arthroplasty. Of note, patient had a fall in April, resulting in dislocation of left hip total arthroplasty. Following this, had open reduction of the left total hip arthroplasty. During that hospitalization, found to be in new onset atrial fibrillation with RVR. She is anticoagulated on Eliquis. Also, takes amiodarone 200 mg p.o. daily and metoprolol 100 mg p.o. twice daily. Echocardiogram done April, showing preserved left ventricular ejection fraction, moderate mitral stenosis, and severe pulmonary hypertension. Return to the emergency department back on 06/07/2024 with chief complaint of several days of worsening dyspnea. Associated bilateral lower extremity swelling. Denies chest pain. States she has been compliant with her Eliquis. Denied infectious symptoms. Workup in the emergency department including cardiomegaly, pulmonary vascular congestion, and small to moderate-sized bilateral pleural effusions. CBC: WBC count 3, hemoglobin 10.9, hematocrit 36.9, platelets 337. CMP: Sodium 135, potassium 4.1, chloride 94, serum bicarb 39, BUN 13, creatinine 1.02, glucose 138. NT proBNP elevated at 8130. Troponin 0.024. EKG sinus mechanism on arrival, rate 65 bpm, frequent PACs, no obvious acute ischemic changes. Elevated D-dimer in setting CT angio protocol did which did not show any filling defects consistent with pulmonary embolism. There is cardiomegaly with moderate right and small left pleural effusion with pulmonary vascular congestion suggestive of congesti ve heart failure/volume overload. Moderate to severe coronary artery atherosclerosis. Follow-up echocardiogram this admission again estimating a preserved left ventricular ejection fraction, dilated right ventricle with moderate to severe tricuspid regurgitation and moderate-severe pulmonary hyper tension. Patient reportedly scheduled for heart catheterization tomorrow. Patient currently being evaluated in the cardiac stepdown unit. She is resting comfortably on 2 L/min nasal cannula. No respiratory distress. Currently, receiving p.o. Lasix 40 mg twice daily. She states she is voiding often. She has lower extremity swelling. Lower extremity venous Doppler negative for DVTs bilaterally. Endorses orthopnea. Denies any chest pain, heart palpitations, lightheadedness or syncopal events since April. Denies infectious-like symptoms. Current vital signs: Temperature 98 F, heart rate 60 bpm, blood pressure 134/72 mmHg, nontachypneic, SpO2 was recorded at 95% on 2 L/min nasal c annula. The patient is seen today June 11, 2024 in follow-up on the selective care unit. She is currently up ambulating with her walker and assistance in her room. Awake and alert in no acute distress. Denies any worsening shortness of breath, cough or congestion. No chest pain or palpitations. She is maintaining O2 saturations in the high 90s on 2 L/min per nasal cannula. She has been afe brile. Hemodynamically stable. She did undergo a right heart catheterization 06/10/2024 and was found to have severe pulmonary hypertension and moderate tricuspid regurgitation. Plan is for transesophageal echocardiogram today and left heart catheterization tomorrow. Her Eliquis is currently on hold. White count 4.6. Hemoglobin 10.7. Platelets 312. Sodium 131. Potassium 4.2. Bicarb 37. BUN 17. Creatinine 1.05. Remains on Lasix 40 mg twice daily. Continued on amiodarone and Lopressor. Patient was seen today on 06/12/2024, patient underwent cardiac catheterization,, cardiology is recommending bypass surgery with HAM to LAD and vein graft to the obtuse marginal and PLV branch of circumflex. Has cardiothoracic surgery was consulted, and Dr. Barros felt that the patient is not the most ideal candidate for myocardial revascularization, hence patient may have to be considered for stenting of the LAD and circumflex systems. Cardiology may have to address that issue after the recommendation from thoracic surgery. Pulmonary veloz patient is doing well, does not seem to be in any distress. On room air, O2 sats is 94%, she does have a small right pleural effusion, felt to be cardiac effusion unless proven otherwise, she did improve with diuretics, no immediate plans for thor acentesis, considering the patient is not symptomatic and she is on room air. Labs today were reviewed, she does have a PTT of 84.9, patient is on heparin. The patient is seen today June 13, 2024 in follow-up on the selective care unit. She is currently sitting up in bed. Awake and alert in no acute distress. Denies any worsening shortness of breath, cough or congestion. Maintaining good O2 saturations in the 90s on room air. She denies any chest pain or palpitations. She is continued on a heparin drip. Remains on amiodarone. Remains on oral diuretics. White count 6.0. Hemoglobin 10.1. Platelets 278. Sodium 127. Potassium 4.0. Bicarb 32. BUN 24. Creatinine 0.92. The patient is seen today June 14, 2024 in follow-up on the selective care unit. She is currently sitting up in a chair at the bedside. Awake and alert in no acute distress. Denies any shortness of breath, cough or congestion. Denies any chest pain or discomfort. She remains on a heparin drip. She is maintaining good O2 saturations in the 90s on room air. She remains on oral diuretics. White count 5.4. Hemoglobin 10.4. Platelets 299. Sodium 132. Potassium 3.9. Bicarb 30. BUN 19. Creatinine 0.86. Glucose 96. Objective - Vital Signs Vital signs: Vital Signs Temp 97.6 F 06/14/24 04:40 Pulse 60 06/14/24 12:00 Resp 18 06/14/24 12:00 BP 123/66 06/14/24 12:00 Pulse Ox 98 06/14/24 12:00 FiO2 Intake & Output 06/13/24 06/14/24 06/14/24 18:59 06:59 18:59 Intake Total 883.472 240 Output Total 200 Balance 683.472 240 Weight 54.7 kg Intake: Intake, IV Titration 163.472 Amount Heparin Sod,Pork in 0.45% 163.472 NaCl 25,000 unit In 0.45 % NaCl 1 250ml.bag @ 12 UNITS/KG/HR 6.492 mls/hr IV .Q24H [facility] Rx#: [id number] Oral 720 240 Output: Urine 200 Other: Voiding Method Toilet Toilet Toilet # Voids 1 2 - Exam GENERAL EXAM: Alert, pleasant 79-year-old female, sitting up in a chair, on room air, comfortable in no apparent distress. HEAD: Normocephalic. EYES: Normal reaction of pupils, equal size. NOSE: Clear with pink turbinates. THROAT: No erythema or exudates. NECK: No masses, no JVD. CHEST: No chest wall deformity. LUNGS: Equal air entry with crackles in the right lung base. CVS: S1 and S2 normal with no audible murmur, regular rhythm. ABDOMEN: No hepatosplenomegaly, normal bowel sounds, no guarding or rigidity. SPINE: No scoliosis or deformity SKIN: No rashes CENTRAL NERVOUS SYSTEM: No focal deficits, tone is normal in all 4 extremities. EXTREMITIES: There is no peripheral edema. No clubbing, no cyanosis. Peripheral pulses are intact. - Labs CBC & Chem 7: 06/14/24 06:59 06/14/24 06:59 Labs: Abnormal Lab Results - Last 24 Hours (Table) 06/14/24 06/14/24 06/14/24 Range/Units 06:59 06:59 06:59 RBC 3.34 L (3.80-5.40) m/uL Hgb 10.4 L (11.4-16.0) gm/dL Hct 32.9 L (34.0-46.0) % RDW 16.1 H (11.5-15.5) % Lymphocytes # 0.7 L (1.0-4.8) k/uL APTT 50.6 H (22.0-30.0) sec Sodium 132 L (137-145) mmol/L Chloride 95 L (98-107) mmol/L BUN 19 H (7-17) mg/dL Assessment and Plan Assessment: Acute exacerbation of diastolic congestive heart failure, chest CT angio protocol did which did not show any filling defects consistent with pulmonary embolism. There is cardiomegaly with moderate right and small left pleural effusion with pulmonary vascular congestion suggestive of congestive heart failure/volume overload. Moderate to severe coronary artery atherosclerosis. NT-proBNP significantly elevated. Acute hypoxemic respiratory failure secondary to above, recovered and on room air Coronary artery disease, plan is for stent placement on June 15, 2024, patient was seen by cardiothoracic surgery who did not feel the patient is an ideal surgical candidate. Remains on a heparin drip History of heart failure with preserved ejection fraction, echocardiogram done April, showing preserved left ventricular ejection fraction, moderate mitral stenosis, and severe pulmonary hypertension. RVSP 78 mmHg Paroxysmal atrial fibrillation, currently sinus mechanism, anticoagulated on Eliquis, also receiving metoprolol 100 mg twice daily and amiodarone 200 mg daily Hypertension History of left total hip arthroplasty History of fall resulting in dislocation of left hip total arthroplasty. Following this, had open reduction of the left total hip arthroplasty. Elevated D-dimer, chest CT angio did not show any obvious filling defects co nsistent with pulmonary embolism. Venous Doppler bilateral lower extremities negative for DVTs Anemia, without any obvious acute blood loss History of Sjogren's disease History of breast cancer with previous lumpectomy Plan: The patient was seen and evaluated Labs and medications reviewed Sitting up in a chair at the bedside Stable and on room air No pulmonary complaints Follow-up chest x-ray in a.m. Remains on a heparin drip Plan is for stent placements tomorrow a.m. Remains on aspirin, statins, beta-blockers and ARB Remains on oral diuretics Will continue to follow I have personally seen and examined the patient, performed the documentation and the assessment and plan as written. Number of minutes spent on the visit: 10 Dictation was produced using [employer] dictation software. Please excuse any grammatical, word or spelling errors.
--- NOTE | 2024-06-14 23:55 | PN ---
PROGRESS NOTE DATE OF SERVICE: 06/14/2024 SUBJECTIVE: This 79-year-old woman who was admitted with multivessel CAD, awaiting [employer] tomorrow. No chest pain. No palpitation. PHYSICAL EXAMINATION: VITAL SIGNS: Pulse is 60, blood pressure 123/63, respirations 18. CHEST: Clear to auscultation. CARDIOVASCULAR: S1, S2. ABDOMEN: Soft. LABORATORY DATA: WBC 10.4, rest of the labs are noted. ASSESSMENT: 1. Multivessel coronary disease for [employer] DIRECTOR. 2. Congestive heart failure. 3. Pulmonary hypertension. 4. Multiple medical issues. RECOMMENDATIONS: Recommend to continue current medications, continue with symptomatic treatment. Repeat labs. Closely follow with Cardiology. Prognosis guarded. Further recommendations to follow. MMODL / IJN: [id number] /
[2024-06-15 05:42] LABS: Anisocytosis Slight; Basophils % (A) 0 %; Eosinophils % (A) 1 %; HCT 31.8 % (34.0-46.0); HGB 9.7 gm/dL (11.4-16.0); Hypochromasia Moderate; Lymphocytes # (A) 0.6 k/uL (1.0-4.8); Lymphocytes % (A) 9 %; MCH 30.2 pg (25.0-35.0); MCHC 30.5 g/dL (31.0-37.0); MCV 98.9 fL (80.0-100.0); Macrocytosis Slight; Mean Platelet Volume 7.5; Monocytes # (A) 0.5 k/uL (0-1.0); Monocytes % (A) 7 %; Neutrophils % (A) 80 %; Platelet Count 302 k/uL (150-450); RBC 3.22 m/uL (3.80-5.40); RDW 16.3 % (11.5-15.5); WBC 6.2 k/uL (3.8-10.6)
[2024-06-15 06:18] LABS: African American GFR (CKD) 75 (>60 ml/min/1.73 sqM); Anion Gap 8 mmol/L; Blood Urea Nitrogen 15 mg/dL (7-17); Calcium 8.5 mg/dL (8.4-10.2); Carbon Dioxide 26 mmol/L (22-30); Chloride 96 mmol/L (98-107); Glucose 104 mg/dL (74-99); Non-African American GFR(CKD) 65 (>60 ml/min/1.73 sqM); Potassium 3.5 mmol/L (3.5-5.1); Sodium 130 mmol/L (137-145)
[2024-06-15] MEDS: ASPIRIN 325 MG TAB PO STA (06:21)
--- NOTE | 2024-06-15 06:54 | XR ---
EXAMINATION TYPE: XR chest 1V portable DATE OF EXAM: 06/15/2024 CLINICAL INDICATION: Female, 79 years old with history of Pleural effusion, progress study. TECHNIQUE: Single AP portable upright view of the chest is obtained. COMPARISON: Chest x-ray from 3 days earlier FINDINGS: Persistent small right pleural effusion. Persistent mild cardiomegaly with mild central va scular congestion. Osseous structures are demineralized. Left lung remains clear. Surgical clips in t he overlying right breast are redemonstrated. IMPRESSION: Correlate for CHF exacerbation/fluid overload state. No significant change from most rece nt x-ray. [facility], , 06/15/2024 6:52 AM
[2024-06-15] MEDS: IV FLUID CONTINUATION 300 ML IV ONE (07:21)
[2024-06-15] MEDS: MIDAZOLAM 2 MG/2 ML VIAL IVP ONE (07:34)
[2024-06-15] MEDS: LIDOCAINE 1% INJ 10MG/ML (20 ML MDV) SQ ONE (07:35)
[2024-06-15] MEDS: VERAPAMIL SYRINGE (5 MG/10 ML) INTRAARTER ONE (07:36)
[2024-06-15] MEDS: HEPARIN SODIUM 1,000 UN/ML (10ML VL) IVP ONE (07:44)
[2024-06-15] MEDS: HEPARIN SODIUM,PORCINE 10,000 UNIT in SODIUM CHLORIDE 0.9% 1,000 ML IRRIGATION ONE (07:44)
[2024-06-15] MEDS: HEPARIN SODIUM,PORCINE (1 ML) 2,500 UNIT in SODIUM CHLORIDE 0.9% 250 ML IRRIGATION ONE (07:45)
[2024-06-15] MEDS: NITROGLYCERIN 1000MCG/10ML SYRINGE INTRACORON ONE (08:02)
[2024-06-15] MEDS: IOPAMIDOL-370 100ML BTL INJ ONE ×3 (08:13→09:29)
[2024-06-15] MEDS: CLOPIDOGREL 75 MG TAB PO ONE (08:57)
[2024-06-15] MEDS: SODIUM CHLORIDE 0.9% 1,000 ML IV SCH (10:04)
[2024-06-15] MEDS: POTASSIUM CHLORIDE ER 20 MEQ TAB.ER PO SCH (10:04)
--- NOTE | 2024-06-15 10:39 | PTCA ---
PERCUTANEOUSTRANS CORORONARY ANGIOGRAPHY PROCEDURES PERFORMED: 1. Intravascular ultrasound of left anterior descending and circumflex adjunctive done before and after percutaneous coronary intervention. 2. Shockwave lithotripsy of proximal left anterior descending. 3. Percutaneous transluminal coronary angioplasty and stenting of proximal left anterior descending with a drug-eluting stent. 4. Percutaneous transluminal coronary angioplasty of circumflex marginal branch with a noncompliant balloon. 5. Percutaneous transluminal coronary angioplasty and stenting of mid circumflex with 2 drug-eluting stents. PERFORMED BY: Dr. Dione Stallings. ANESTHESIA: Moderate conscious sedation time was 119 minutes. CLINICAL INFORMATION: Ms. Marta Merritt is an 79-year-old lady with a history of recurrent hospitalization with shortness of breath, chest pain, paroxysmal atrial fibrillation, who recently underwent left hip arthroplasty. On this hospitalization, she was in congestive heart failure with significant tricuspid regurgitation, but on the transesophageal echo, this was moderate. Subsequent right heart catheterization revealed pulmonary hypertension with right-sided pressures in the range of 55 mmHg. However, coronary angiogram revealed a significant proximal LAD calcified lesion that had an IFR of 0.74. She had 2 lesions in the mid circumflex and also the obtuse marginal had a lesion. RCA was nondominant, moderate 50% to 55% disease. She was advised aortocoronary bypass surgery, was seen by Dr. Buster Barros who felt that she is very frail, had a recent hip surgery and she would benefit from percutaneous intervention as opposed to open- heart surgery. After this discussion, I talked to the patient and family at length and recommended multivessel PCI and brought in for the procedure electively. Patient and family were in full agreement and understood all risks benefits and limited options. PROCEDURE NOTE: Under local anesthesia and strict aseptic precautions with the help of ultrasound, I gained access into the right radial artery. A 6-[place] introducer was placed. I used a CLS 3.5 guide catheter of 6-[place] caliber to cannulate the left coronary artery. I performed intervention of the LAD after an intravascular ultrasound to assess the diameter. I did Shock wave Lithotripsy of Calcified LAD lesion-3 passes. I deployed a 3.5 caliber 15 mm long Xience stent. I then performed intravascular ultrasound, which revealed that the diameter was larger. I therefore went back with a 4.0 [place] Trek balloon and post dilated it and subsequent intravascular ultrasound revealed excellent stent expansion with good apposition. I used a run-through wire and advanced it and kept in the distal circumflex. I had difficulty wiring the OM because of the angulation and significant disease. With a combination of a 45 degree SuperCross and run-through wire with a curve, I was able to gain access. I dilated the 2 lesions in the circumflex and then I lost the wire position of the circumflex marginal. I had to rewire it and it took considerable amount of time. Following this, I dilated the circumflex marginal with a 2.5 caliber [place] Trek balloon with a significant improvement. I then deployed a 3.25 caliber 12 mm Xience stent in the distal portion of the mid circumflex and then proximal to it telescoping into it was a 23 mm long Xience stent that also covered the obtuse marginal branch. Excellent angiographic result was achieved. I performed intravascular ultrasound and noted that the stent was open, but the reference diameter was almost 3.5. I then went back with a 3.5 [place] Trek balloon and dilated the entire area of the circumflex with excellent angiographic result. The intravascular ultrasound of circumflex demonstrated full excellent stent expansion with excellent apposition. The patient received heparin intravenously. ACT was 276, and at the end of the procedure, it was 178. I gave additional 1000 units of heparin. The patient received 600 mg of Plavix. She will be on aspirin and Plavix combination along with Eliquis 2.5 mg b.i.d. for 3 weeks and then I will leave her on Plavix and Eliquis combination because of atrial fibrillation. Excellent angiographic result was achieved. The details were discussed with the patient, her , and [id number]. MMODL / IJN: [id number] / [id number]
--- NOTE | 2024-06-15 11:50 | P.PN ---
Subjective Progress Note Date: 06/15/24 This is an 79-year-old female patient with a CAD status post PCI of the LCx and LAD performed earlier today by Dr. Stallings as well as history of HFpEF and valvular heart disease and pulmonary hypertension and paroxysmal atrial fibrillation June 15, 2024 The patient was seen and evaluated this morning. She is asymptomatic at this point. She is hemodynamically stable. She is on anticoagulation with Eliquis at 2.5 mg p.o. twice daily to be started tomorrow after we have a good hemostasis at the right radial artery and also she is on Plavix. The physical examination is remarkable for regular rhythm with a systolic murmur at the right upper sternal border with breathing sounds bilaterally and no edema was noted in the lower extremities Assessment CAD status post PCI as described above HFpEF Valvular heart disease Pulmonary hypertension Paroxysmal atrial fibrillation Plan Continue the current medical regimen Continue monitor the kidney function and hemoglobin and electrolytes Follow-up with the patient Possible discharge in next 24 to 48 hours Objective - Vital Signs Vital signs: Vital Signs Temp 98.3 F 06/15/24 10:02 Pulse 63 06/15/24 11:14 Resp 17 06/15/24 11:14 BP 112/63 06/15/24 11:14 Pulse Ox 98 06/15/24 11:14 FiO2 Intake & Output 06/14/24 06/15/24 06/15/24 18:59 06:59 18:59 Intake Total 480 950 Output Total 600 400 Balance -120 -400 950 Weight 55 kg Intake: IV 230 Oral 480 720 Output: Urine 600 400 Other: Voiding Method Toilet Toilet External Catheter - Labs CBC & Chem 7: 06/15/24 05:27 06/15/24 05:27 Labs: Abnormal Lab Results - Last 24 Hours (Table) 06/15/24 06/15/24 Range/Units 05:27 05:27 RBC 3.22 L (3.80-5.40) m/uL Hgb 9.7 L (11.4-16.0) gm/dL Hct 31.8 L (34.0-46.0) % MCHC 30.5 L (31.0-37.0) g/dL RDW 16.3 H (11.5-15.5) % Lymphocytes # 0.6 L (1.0-4.8) k/uL Sodium 130 L (137-145) mmol/L Chloride 96 L (98-107) mmol/L Glucose 104 H (74-99) mg/dL
[2024-06-15 13:22] VITALS: BMI 20.8
--- NOTE | 2024-06-15 13:42 | P.PN ---
Subjective Progress Note Date: 06/15/24 Hospital Course: Patient is a 79-year-old female with a history of A-fib on Eliquis, hypertension, breast cancer status post lumpectomy, Sjogren's disease and recent left total hip arthroplasty on 05/07/[address] Melendez presented to ER on 06/07/2024 for progressively worsening dyspnea since 1 week. Patient reports exertional dyspnea since 1 week associated with bilateral leg swelling, orthopnea and PND. Patient had recent follow-up with orthopedic Dr. Melendez and cardiology Dr. Stallings. Patient denies chest pain, abdominal pain, nausea, vomiting, diarrhea or constipation, fever, chills, numbness/weakness/tingling in upper or lower extremities. Patient denies any recent travel or upper respirat ory tract infection. Initial evaluation in the ER shows WBC 4.4, hemoglobin 10.4, MCV 103.5, sodium 135, potassium 4.1, chloride 101, bicarb 26, BUN 17, creatinine 0.72, glucose 114, ALP 208, AST 33, ALT 16, NT proBNP 8130. D-dimer 2.76 mg/L Chest x-ray done in the ER shows moderate bilateral pleural effusions with diffuse airspace opacities. EKG done in the ER shows sinus rhythm with occasional supraventricular premature complexes with heart rate of 65 bpm, AK interval 144 ms, QRS duration 78 ms, QTc duration 420 ms. Normal R wave progression. No ST to T wave changes noted. Vital signs on arrival shows 98.0 F, pulse rate 61, respiratory 18, blood pressure 172/74, oxygen saturation 93% on room air. Subsequent vital signs show pulse rate 66, respiratory rate 18, blood pressure 1 5462, oxygen saturation 97% on 2 L via nasal cannula. Patient underwent RAFAT on 06/11/2024 which shows severe pulmonary hypertension with RVSP estimated more than 60 mmHg, severe RA dilatation and moderate RV dilatation and moderate TR. Patient underwent patient left heart catheterization and coronary angiography on 06/12/2024 which showed multivessel CAD. Patient is a high risk surgical candidate for CABG. Patient underwent angioplasty on 06/15/2024 and PCI of the left circumflex and LAD was performed. Patient started on dual antiplatelet therapy with aspirin and Plavix and anticoagulation with Eliquis. Subjective: Patient seen and examined at the bedside. No acute events overnight. Patient underwent PCI of the left circumflex and LAD today. Patient is hemodynamically stable. Patient denies any shortness of breath, chest pain, nausea or vomiting. All Systems reviewed and pertinent positives and negatives noted in HPI, all other symptoms are negative Objective: Vital signs reviewed General: non toxic, no distress, appears at stated age, normal weight Derm: no unusual rashes/lesions, warm Head: atraumatic, normocephalic, symmetric Eyes: EOMI, no lid lag, anicteric sclera, pupils equal round reactive to light ENT: Nose and ears atraumatic Neck: No cervical lymphadenopathy, trachea midline, supple Mouth: no lip lesion, mucus membranes moist Cardiovascular: S1S2 reg, no murmur, positive dorsalis pedis pulse bilateral, 1+ bilateral lower extremity edema Lungs: Mild crackles on the left lung base, no wheezing, no use of accessory muscles. Abdominal: soft, nontender to palpation, no guarding Ext: muscle strength 5 out of 5 in all 4 extremities grossly, no gross muscle atrophy, no contractures, Neuro: CN II-XI grossly intact, no gross focal neuro deficits Psych: Alert, oriented, appropriate affect Data reviewed today: Pertinent Labs: WBC 6.2, hemoglobin 9.7, platelet count 302, sodium 130, potassium 3.5, BUN 15, creatinine 0.84 Images: Chest x-ray shows persistent small right pleural effusion. Assessment and Plan: #Multivessel CAD status post stenting of the left circumflex and LAD #Acute diastolic congestive heart failure #Severe pulmonary hypertension #Right-sided pleural effusion Oxygen therapy as needed Continue Lasix 40 mg p.o. once daily Echo done on 05/12/2024 shows LVEF 60 to 65%. Moderate mitral stenosis with severe pulmonary hypertension. Limited echo done on 06/08/2024 shows LVEF 55 to 60%. Moderate to severe TR with moderate to severe pulmonary hypertension Right heart cath on 06/10/2024 shows mean pulmonary arterial pressure of 27. Cardiology on board, appreciate recs, patient started on aspirin 81 mg and Plav ix 75 mg GDMT: Metoprolol 100 mg p.o. twice daily, Cozaar 50 mg p.o. daily, consider adding SGLT2i, and MRA Continue with amiodarone 200 mg p.o. daily I's and O's and daily weights Fluid restriction to 1500 mL/day Lipid panel: LDL 63.9, HDL 93.3, triglyceride 94.10, cholesterol 176 TSH 0.615 on 05/12/2024 Pulmonary on board, appreciate recs, no plans for intervention as of now #Hyperkalemia, resolved #Hypervolemic hyponatremia Potassium replacement protocol Fluid restrictions as above Continue monitor BMP #Elevated D-dimer, PE ruled out CT chest angio done on 06/08/2024 negative for pulm embolism Continue with Eliquis 5 mg p.o. twice daily #Elevated alkaline phosphatase, resolved GGT 48 #Hyperglycemia, resolved #Macrocytic anemia Vitamin B12 579 and folate 40 on 04/28/2024 Continue monitor Chronic conditions: Hypertension: Cozaar 50 mg p.o. daily Atrial fibrillation: Heparin drip and Lopressor milligram p.o. twice daily Sjogren's disease: Restasis 0.05% ophthalmic eyedrops Order CBC and BMP tomorrow a.m. DVT prophylaxis: Heparin drip GI prophylaxis: None F: None E: Replete as needed N: Heart healthy diet with fluid restriction A: Ambulatory at baseline CODE STATUS: Full code Discussed with: Patient Anticipated discharge place: Pending clinical course Dictation was produced using [employer] dictation software. Please excuse any grammatical, word or spelling errors. Objective - Vital Signs Vital signs: Vital Signs Temp 98.3 F 06/15/24 10:02 Pulse 63 06/15/24 11:14 Resp 17 06/15/24 11:14 BP 112/63 06/15/24 11:14 Pulse Ox 98 06/15/24 11:14 FiO2 Intake & Output 06/14/24 06/15/24 06/15/24 18:59 06:59 18:59 Intake Total 480 950 Output Total 600 400 Balance -120 -400 950 Weight 55 kg 55 kg Intake: IV 230 Oral 480 720 Output: Urine 600 400 Other: Voiding Method Toilet Toilet External Catheter - Labs CBC & Chem 7: 06/15/24 05:27 06/15/24 05:27 Labs: Abnormal Lab Results - Last 24 Hours (Table) 06/15/24 06/15/24 Range/Units 05:27 05:27 RBC 3.22 L (3.80-5.40) m/uL Hgb 9.7 L (11.4-16.0) gm/dL Hct 31.8 L (34.0-46.0) % MCHC 30.5 L (31.0-37.0) g/dL RDW 16.3 H (11.5-15.5) % Lymphocytes # 0.6 L (1.0-4.8) k/uL Sodium 130 L (137-145) mmol/L Chloride 96 L (98-107) mmol/L Glucose 104 H (74-99) mg/dL Assessment and Plan Assessment: Patient was physically seen and evaluated by me. I agree with the findings and management plan as documented above. Oksana House MD
--- NOTE | 2024-06-15 14:57 | P.PN ---
Subjective Progress Note Date: 06/15/24 Principal diagnosis: Congestive heart failure. Patient is an 79-year-old female with past medical history significant for Sjogren's disease, breast cancer with previous lumpectomy, hypertension, atrial fibrillation, and left hip total arthroplasty. Of note, patient had a fall in April, resulting in dislocation of left hip total arthroplasty. Following this, had open reduction of the left total hip arthroplasty. During that hospitalization, found to be in new onset atrial fibrillation with RVR. She is anticoagulated on Eliquis. Also, takes amiodarone 200 mg p.o. daily and metoprolol 100 mg p.o. twice daily. Echocardiogram done April, showing preserved left ventricular ejection fraction, moderate mitral stenosis, and severe pulmonary hypertension. Return to the emergency department back on 06/07/2024 with chief complaint of several days of worsening dyspnea. Associated bilateral lower extremity swelling. Denies chest pain. States she has been compliant with her Eliquis. Denied infectious symptoms. Workup in the emergency department including cardiomegaly, pulmonary vascular congestion, and small to moderate-sized bilateral pleural effusions. CBC: WBC count 3, hemoglobin 10.9, hematocrit 36.9, platelets 337. CMP: Sodium 135, potassium 4.1, chloride 94, serum bicarb 39, BUN 13, creatinine 1.02, glucose 138. NT proBNP elevated at 8130. Troponin 0.024. EKG sinus mechanism on arrival, rate 65 bpm, frequent PACs, no obvious acute ischemic changes. Elevated D-dimer in setting CT angio protocol did which did not show any filling defects consistent with pulmonary embolism. There is cardiomegaly with moderate right and small left pleural effusion with pulmonary vascular congestion suggestive of congestive heart failure/volume overload. Moderate to severe coronary artery atherosclerosis. Follow-up echocardiogram this admission again estimating a preserved left ventricular ejection fraction, dilated right ventricle with mode rate to severe tricuspid regurgitation and moderate-severe pulmonary hypertension. Patient reportedly scheduled for heart catheterization tomorrow. Patient currently being evaluated in the cardiac stepdown unit. She is resting comfortably on 2 L/min nasal cannula. No respiratory distress. Currently, receiving p.o. Lasix 40 mg twice daily. She states she is voiding often. She has lower extremity swelling. Lower extremity venous Doppler negative for DVTs bilaterally. Endorses orthopnea. Denies any chest pain, heart palpitations, lightheadedness or syncopal events since April. Denies infectious-like symptoms. Current vital signs: Temperature 98 F, heart rate 60 bpm, blood pressure 134/72 mmHg, nontachypneic, SpO2 was recorded at 95% on 2 L/min nasal cannula. The patient is seen today June 11, 2024 in follow-up on the selective care unit. She is currently up ambulating with her walker and assistance in her room. Awake and alert in no acute distress. Denies any worsening shortness of breath, cough or congestion. No chest pain or palpitations. She is maintaining O2 saturations in the high 90s on 2 L/min per nasal cannula. She has been afebrile. Hemodynamically stable. She did undergo a right heart catheterization 06/10/2024 and was found to have severe pulmonary hypertension and moderate tricuspid regurgitation. Plan is for transesophageal echocardiogram today and left heart catheterization tomorrow. Her Eliquis is currently on hold. White count 4.6. Hemoglobin 10.7. Platelets 312. Sodium 131. Potassium 4.2. Bicarb 37. BUN 17. Creatinine 1.05. Remains on Lasix 40 mg twice daily. Continued on amiodarone and Lopressor. Patient was seen today on 06/12/2024, patient underwent cardiac catheterization,, cardiology is recommending bypass surgery with HAM to LAD and vein graft to the obtuse marginal and PLV branch of circumflex. Has cardiothoracic surgery was consulted, and Dr. Barros felt that the patient is not the most ideal candidate for myocardial revascularization, hence patient may have to be considered for stenting of the LAD and circumflex systems. Cardiology may have to address that issue after the recommendation from thoracic surgery. Pulmonary veloz patient is doing well, does not seem to be in any distress. On room air, O2 sats is 94%, she does have a small right pleural effusion, felt to be cardiac effusion unless proven otherwise, she did improve with diuretics, no immediate plans for thoracentesis, considering the patient is not symptomatic and she is on room air. Labs today were reviewed, she does have a PTT of 84.9, patient is on heparin. The patient is seen today June 13, 2024 in follow-up on the selective care unit. She is currently sitting up in bed. Awake and alert in no acute distress. Denies any worsening shortness of breath, cough or congestion. Maintaining good O2 saturations in the 90s on room air. She denies any chest pain or palpitations. She is continued on a heparin drip. Remains on amiodarone. Remains on oral diuretics. White count 6.0. Hemoglobin 10.1. Platelets 278. Sodium 127. Potassium 4.0. Bicarb 32. BUN 24. Creatinine 0.92. The patient is seen today June 14, 2024 in follow-up on the selective care unit. She is currently sitting up in a chair at the bedside. Awake and alert in no acute distress. Denies any shortness of breath, cough or congestion. Den ies any chest pain or discomfort. She remains on a heparin drip. She is maintaining good O2 saturations in the 90s on room air. She remains on oral diuretics. White count 5.4. Hemoglobin 10.4. Platelets 299. Sodium 132. Potassium 3.9. Bicarb 30. BUN 19. Creatinine 0.86. Glucose 96. Progress note dated June 15, 2024. 79-year-old female seen today in room 376. She is currently on room air. She is getting saline at 75 cc an hour. The patient had 3 stents placed today. Chest x-ray appears better. Clinically, she appears stable. Current labs include a white count of 6.2, hemoglobin 9.7, hematocrit 31.8, and a platelet count of 302,000. Sodium 130, potassium 3.5, chlorides 96, CO2 26, anion gap 8, BUN 15, creatinine 0.84. Glucose was 104. Viral screen was negative. Chest x- ray shows changes of CHF. Objective - Vital Signs Vital signs: Vital Signs Temp 98.3 F 06/15/24 10:02 Pulse 63 06/15/24 11:14 Resp 17 06/15/24 11:14 BP 112/63 06/15/24 11:14 Pulse Ox 98 06/15/24 11:14 FiO2 Intake & Output 06/14/24 06/15/24 06/15/24 18:59 06:59 18:59 Intake Total 480 950 Output Total 600 400 Balance -120 -400 950 Weight 55 kg 55 kg Intake: IV 230 Oral 480 720 Output: Urine 600 400 Other: Voiding Method Toilet Toilet External Catheter - Exam No acute distress, oriented 3. The patient is currently on room air. HEENT examination is grossly unremarkable. Mucous membranes are moist. No oral lesions. Neck supple. Full range of motion. No adenopathy thyromegaly or neck vein distention. Cardiovascular examination reveals regular rhythm rate. S1-S2 normal. No S3 or S4. No discernible murmur noted. Lungs reveal clear breath sounds. Breath sounds are equal bilaterally. No adventitious lung sounds including wheezes rhonchi or crackles. Abdomen soft bowel sounds are heard. No masses or tenderness. Extremities are intact. No cyanosis clubbing or edema. Skin is without rash or lesion. Neurologic examination is brief but nonfocal. - Labs CBC & Chem 7: 06/15/24 05:27 06/15/24 05:27 Labs: Abnormal Lab Results - Last 24 Hours (Table) 06/15/24 06/15/24 Range/Units 05: 05:27 RBC 3.22 L (3.80-5.40) m/uL Hgb 9.7 L (11.4-16.0) gm/dL Hct 31.8 L (34.0-46.0) % MCHC 30.5 L (31.0-37.0) g/dL RDW 16.3 H (11.5-15.5) % Lymphocytes # 0.6 L (1.0-4.8) k/uL Sodium 130 L (137-145) mmol/L Chloride 96 L (98-107) mmol/L Glucose 104 H (74-99) mg/dL Assessment and Plan Assessment: Acute exacerbation of diastolic congestive heart failure, chest CT angio protocol did which did not show any filling defects consistent with pulmonary embolism. There is cardiomegaly with moderate right and small left pleural effusion with pulmonary vascular congestion suggestive of congestive heart failure/volume overload. Moderate to severe coronary artery atherosclerosis. NT-proBNP significantly elevated. Acute hypoxemic respiratory failure secondary to above. Coronary artery disease, S/P 3 stents placed on June 15, 2024, patient was seen by cardiothoracic surgery who did not feel the patient is an ideal surgical candidate. History of heart failure with preserved ejection fraction, echocardiogram done April, showing preserved left ventricular ejection fraction, moderate mitral stenosis, and severe pulmonary hypertension. RVSP 78 mmHg. Paroxysmal atrial fibrillation, currently sinus mechanism, anticoagulated on Eliquis, also receiving metoprolol 100 mg twice daily and amiodarone 200 mg daily. Hypertension. History of left total hip arthroplasty. History of fall resulting in dislocation of left hip total arthroplasty. Following this, had open reduction of the left total hip arthroplasty. Elevated D-dimer, chest CT angio did not show any obvious filling defects consistent with pulmonary embolism. Venous Doppler bilateral lower extremities negative for DVTs. Anemia, without any obvious acute blood loss. History of Sjogren's disease. History of breast cancer with previous lumpectomy. Plan: Plan dated June 15, 2024. The patient is seen today in room 376. The patient is currently on room air. She did have 3 stents placed today by cardiology. She is getting saline at 75 cc an hour. Chest x-ray shows some mild fluid overload. Clinically, she appears relatively stable. Labs, x-rays, and all medications are reviewed. We will continue to follow, make recommendations along the way. Prognosis is thought to be generally good. The patient remains a full code patient. Time with Patient: Less than 30
[2024-06-15 15:17] VITALS: RESP 16
[2024-06-15] MEDS: METOPROLOL TARTRATE 25 MG TAB PO SCH (21:28)
--- NOTE | 2024-06-16 07:52 | P.PN ---
Subjective Progress Note Date: 06/16/24 This is an 79-year-old female patient with a CAD status post PCI of the LCx and LAD performed earlier today by Dr. Stallings as well as history of HFpEF and valvular heart disease and pulmonary hypertension and paroxysmal atrial fibrillation June 15, 2024 The patient was seen and evaluated this morning. She is asymptomatic at this point. She is hemodynamically stable. She is on anticoagulation with Eliquis at 2.5 mg p.o. twice daily to be started tomorrow after we have a good hemostasis at the right radial artery and also she is on Plavix. The physical examination is remarkable for regular rhythm with a systolic murmur at the right upper sternal border with breathing sounds bilaterally and no edema was noted in the lower extremities June 16, 2024 The patient was seen and evaluated this morning. She is asymptomatic. The pressure is low. I am going to decrease the dose of losartan. From a cardiovascular standpoint of view, the patient can be discharged home and follow-up with Dr. Stallings as an outpatient. The physical examination is remarkable for regular rhythm with a systolic murmur at the right upper sternal border and left upper sternal border with a clear breathing sounds bilaterally and no edema was noted Assessment CAD status post PCI as described above HFpEF Valvular heart disease Pulmonary hypertension Paroxysmal atrial fibrillation Plan Continue the current medical regimen Decrease the dose of losartan The patient can be discharged home Objective - Vital Signs Vital signs: Vital Signs Temp 97.6 F 06/16/24 04:00 Pulse 63 06/16/24 04:00 Resp 16 06/16/24 04:00 BP 98/57 06/16/24 04:00 Pulse Ox 96 06/16/24 04:00 FiO2 Intake & Output 06/15/24 06/16/24 06/16/24 18:59 06:59 18:59 Intake Total 1700 Balance 1700 Weight 55 kg 54.7 kg Intake: IV 230 Oral 1470 Other: Voiding Method External Catheter Toilet # Voids 1 2 # Bowel Movements 1 - Labs CBC & Chem 7: 06/15/24 05:27 06/15/24 05:27
[2024-06-16 08:15] LABS: HCT 29.3 % (34.0-46.0); Hypochromasia Marked; MCH 30.5 pg (25.0-35.0); MCHC 30.8 g/dL (31.0-37.0); Macrocytosis Slight; Mean Platelet Volume 7.2; Platelet Count 322 k/uL (150-450); RBC 2.96 m/uL (3.80-5.40); WBC 7.9 k/uL (3.8-10.6)
[2024-06-16 08:35] LABS: African American GFR (CKD) 68 (>60 ml/min/1.73 sqM); Anion Gap 9 mmol/L; Blood Urea Nitrogen 13 mg/dL (7-17); Calcium 8.8 mg/dL (8.4-10.2); Carbon Dioxide 24 mmol/L (22-30); Chloride 99 mmol/L (98-107); Glucose 91 mg/dL (74-99); Non-African American GFR(CKD) 59 (>60 ml/min/1.73 sqM); Potassium 4.1 mmol/L (3.5-5.1); Sodium 132 mmol/L (137-145)
[2024-06-16] MEDS: APIXABAN 2.5 MG TABLET PO SCH (08:35)
[2024-06-16] MEDS: CLOPIDOGREL 75 MG TAB PO SCH (08:36)
[2024-06-16] MEDS: LOSARTAN 25 MG TAB PO SCH (08:37)
--- NOTE | 2024-06-16 12:04 | P.PN ---
Subjective Progress Note Date: 06/16/24 Principal diagnosis: Congestive heart failure. Patient is an 79-year-old female with past medical history significant for Sjogren's disease, breast cancer with previous lumpectomy, hypertension, atrial fibrillation, and left hip total arthroplasty. Of note, patient had a fall in April, resulting in dislocation of left hip total arthroplasty. Following this, had open reduction of the left total hip arthroplasty. During that hospitalization, found to be in new onset atrial fibrillation with RVR. She is anticoagulated on Eliquis. Also, takes amiodarone 200 mg p.o. daily and metoprolol 100 mg p.o. twice daily. Echocardiogram done April, showing preserved left ventricular ejection fraction, moderate mitral stenosis, and severe pulmonary hypertension. Return to the emergency department back on 06/07/2024 with chief complaint of several days of worsening dyspnea. Associated bilateral lower extremity swelling. Denies chest pain. States she has been compliant with her Eliquis. Denied infectious symptoms. Workup in the emergency department including cardiomegaly, pulmonary vascular congestion, and small to moderate-sized bilateral pleural effusions. CBC: WBC count 3, hemoglobin 10.9, hematocrit 36.9, platelets 337. CMP: Sodium 135, potassium 4.1, chloride 94, serum bicarb 39, BUN 13, creatinine 1.02, glucose 138. NT proBNP elevated at 8130. Troponin 0.024. EKG sinus mechanism on arrival, rate 65 bpm, frequent PACs, no obvious acute ischemic changes. Elevated D-dimer in setting CT angio protocol did which did not show any filling defects consistent with pulmonary embolism. There is cardiomegaly with moderate right and small left pleural effusion with pulmonary vascular congestion suggestive of congestive heart failure/volume overload. Moderate to severe coronary artery atherosclerosis. Follow-up echocardiogram this admission again estimating a preserved left ventricular ejection fraction, dilated right ventricle with mode rate to severe tricuspid regurgitation and moderate-severe pulmonary hypertension. Patient reportedly scheduled for heart catheterization tomorrow. Patient currently being evaluated in the cardiac stepdown unit. She is resting comfortably on 2 L/min nasal cannula. No respiratory distress. Currently, receiving p.o. Lasix 40 mg twice daily. She states she is voiding often. She has lower extremity swelling. Lower extremity venous Doppler negative for DVTs bilaterally. Endorses orthopnea. Denies any chest pain, heart palpitations, lightheadedness or syncopal events since April. Denies infectious-like symptoms. Current vital signs: Temperature 98 F, heart rate 60 bpm, blood pressure 134/72 mmHg, nontachypneic, SpO2 was recorded at 95% on 2 L/min nasal cannula. The patient is seen today June 11, 2024 in follow-up on the selective care unit. She is currently up ambulating with her walker and assistance in her room. Awake and alert in no acute distress. Denies any worsening shortness of breath, cough or congestion. No chest pain or palpitations. She is maintaining O2 saturations in the high 90s on 2 L/min per nasal cannula. She has been afebrile. Hemodynamically stable. She did undergo a right heart catheterization 06/10/2024 and was found to have severe pulmonary hypertension and moderate tricuspid regurgitation. Plan is for transesophageal echocardiogram today and left heart catheterization tomorrow. Her Eliquis is currently on hold. White count 4.6. Hemoglobin 10.7. Platelets 312. Sodium 131. Potassium 4.2. Bicarb 37. BUN 17. Creatinine 1.05. Remains on Lasix 40 mg twice daily. Continued on amiodarone and Lopressor. Patient was seen today on 06/12/2024, patient underwent cardiac catheterization,, cardiology is recommending bypass surgery with HAM to LAD and vein graft to the obtuse marginal and PLV branch of circumflex. Has cardiothoracic surgery was consulted, and Dr. Barros felt that the patient is not the most ideal candidate for myocardial revascularization, hence patient may have to be considered for stenting of the LAD and circumflex systems. Cardiology may have to address that issue after the recommendation from thoracic surgery. Pulmonary veloz patient is doing well, does not seem to be in any distress. On room air, O2 sats is 94%, she does have a small right pleural effusion, felt to be cardiac effusion unless proven otherwise, she did improve with diuretics, no immediate plans for thoracentesis, considering the patient is not symptomatic and she is on room air. Labs today were reviewed, she does have a PTT of 84.9, patient is on heparin. The patient is seen today June 13, 2024 in follow-up on the selective care unit. She is currently sitting up in bed. Awake and alert in no acute distress. Denies any worsening shortness of breath, cough or congestion. Maintaining good O2 saturations in the 90s on room air. She denies any chest pain or palpitations. She is continued on a heparin drip. Remains on amiodarone. Remains on oral diuretics. White count 6.0. Hemoglobin 10.1. Platelets 278. Sodium 127. Potassium 4.0. Bicarb 32. BUN 24. Creatinine 0.92. The patient is seen today June 14, 2024 in follow-up on the selective care unit. She is currently sitting up in a chair at the bedside. Awake and alert in no acute distress. Denies any shortness of breath, cough or congestion. Den ies any chest pain or discomfort. She remains on a heparin drip. She is maintaining good O2 saturations in the 90s on room air. She remains on oral diuretics. White count 5.4. Hemoglobin 10.4. Platelets 299. Sodium 132. Potassium 3.9. Bicarb 30. BUN 19. Creatinine 0.86. Glucose 96. Progress note dated June 15, 2024. 79-year-old female seen today in room 376. She is currently on room air. She is getting saline at 75 cc an hour. The patient had 3 stents placed today. Chest x-ray appears better. Clinically, she appears stable. Current labs include a white count of 6.2, hemoglobin 9.7, hematocrit 31.8, and a platelet count of 302,000. Sodium 130, potassium 3.5, chlorides 96, CO2 26, anion gap 8, BUN 15, creatinine 0.84. Glucose was 104. Viral screen was negative. Chest x- ray shows changes of CHF. Progress note dated June 16, 2024. 79-year-old female seen today in room 376. She was asked to walk in the estr[place]. She is on room air. No IV fluids. The patient is hoping to be discharged sometime later today. She is feeling well, without any specific complaints in cluding chest pain, chest discomfort, shortness of breath, cough, wheezing, etc. Current laboratory data includes a white count 7.9, hemoglobin 9, hematocrit 29.3, and a platelet count of 322,000. Sodium 132, potassium 4.1, chlorides 99, CO2 24, BUN 13, creatinine 0.91. Glucose is 91. Calcium is 8.8. Objective - Vital Signs Vital signs: Vital Signs Temp 98 F 06/16/24 08:16 Pulse 80 03/25/25 08:16 Resp 16 06/16/24 08:16 BP 116/56 06/16/24 08:16 Pulse Ox 96 06/16/24 04:00 FiO2 Intake & Output 06/15/24 06/16/24 06/16/24 18:59 06:59 18:59 Intake Total 1700 240 Balance 1700 240 Weight 55 kg 54.7 kg Intake: IV 230 Oral 1470 240 Other: Voiding Method External Catheter Toilet Toilet # Voids 1 2 1 # Bowel Movements 1 - Exam No acute distress, oriented 3. The patient is currently on room air. HEENT examination is grossly unremarkable. Mucous membranes are moist. No oral lesions. Neck supple. Full range of motion. No adenopathy thyromegaly or neck vein distention. Cardiovascular examination reveals regular rhythm rate. S1-S2 normal. No S3 or S4. No discernible murmur noted. Lungs reveal clear breath sounds. Breath sounds are equal bilaterally. No adventitious lung sounds including wheezes rhonchi or crackles. Abdomen soft bowel sounds are heard. No masses or tenderness. Extremities are intact. No cyanosis clubbing or edema. Skin is without rash or lesion. Neurologic examination is brief but nonfocal. - Labs CBC & Chem 7: 06/16/24 07:22 06/16/24 07:22 Labs: Abnormal Lab Results - Last 24 Hours (Table) 06/16/24 06/16/24 Range/Units 07:22 07:22 RBC 2.96 L (3.80-5.40) m/uL Hgb 9.0 L (11.4-16.0) gm/dL Hct 29.3 L (34.0-46.0) % MCHC 30.8 L (31.0-37.0) g/dL RDW 16.0 H (11.5-15.5) % Sodium 132 L (137-145) mmol/L Assessment and Plan Assessment: Acute exacerbation of diastolic congestive heart failure, chest CT angio protocol did which did not show any filling defects consistent with pulmonary embolism. There is cardiomegaly with moderate right and small left pleural effusion with pulmonary vascular congestion suggestive of congestive heart failure/volume overload. Moderate to severe coronary artery atherosclerosis. NT-proBNP significantly elevated. Acute hypoxemic respiratory failure secondary to above. Coronary artery disease, S/P 3 stents placed on June 15, 2024, patient was seen by cardiothoracic surgery who did not feel the patient is an ideal surgical candidate. History of heart failure with preserved ejection fraction, echocardiogram done April, showing preserved left ventricular ejection fraction, moderate mitral stenosis, and severe pulmonary hypertension. RVSP 78 mmHg. Paroxysmal atrial fibrillation, currently sinus mechanism, anticoagulated on Eliquis, also receiving metoprolol 100 mg twice daily and amiodarone 200 mg daily. Hypertension. History of left total hip arthroplasty. History of fall resulting in dislocation of left hip total arthroplasty. Following this, had open reduction of the left total hip arthroplasty. Elevated D-dimer, chest CT angio did not show any obvious filling defects consistent with pulmonary embolism. Venous Doppler bilateral lower extremities negative for DVTs. Anemia, without any obvious acute blood loss. History of Sjogren's disease. History of breast cancer with previous lumpectomy. Plan: Plan dated June 15, 2024. The patient is seen today in room 376. The patient is currently on room air. She did have 3 stents placed today by cardiology. She is getting saline at 75 cc an hour. Chest x-ray shows some mild fluid overload. Clinically, she appears relatively stable. Labs, x-rays, and all medications are reviewed. We will continue to follow, make recommendations along the way. Prognosis is thought to be generally good. The patient remains a full code patient. Plan dated June 16, 2024. The patient is seen today in room 376. The patient is on room air. No IV fluids. He had 3 stents placed yesterday. The patient's labs are reviewed. She is not having any symptoms of shortness of breath, difficulty breathing, cough, wheezing, chest tightness, chest pain, palpitations, etc. the patient was walking the estrada without difficulty. She is hoping to be discharged home sometime later today. Additional recommendations and suggestions are forthcoming. Time with Patient: Less than 30
[2024-06-16 12:16] VITALS: BP 106/58; PULSE 85; TEMP 98.1
--- NOTE | 2024-06-16 12:39 | P.DS ---
Providers Date of admission: 06/08/24 00:57 Attending physician: Lali Rosen Consults: 06/08/24 00:57 Consult Physician Routine Consulting Provider: [place] Valdez Consult Reason/Comments: CHF Do you want consulting provider notified?: Yes 06/09/24 15:59 Consult Physician Routine Consulting Provider: Lisa Jimenez Consult Reason/Comments: pulmonary hypertension Do you want consulting provider notified?: Yes 06/12/24 10:08 Consult Physician Routine Consulting Provider: Buster Barros Consult Reason/Comments: CAD, tri regurg Do you want consulting provider notified?: Yes Primary care physician: Physician Nonstaff Hospital Course: Discharge Diagnosis: #Multivessel CAD status post stenting of the left circumflex and LAD #HFpEF #Severe pulmonary hypertension #Mild right sided pleural effusion #Hypokalemia-resolved #Hypervolemic hyponatremia, resolved #Hyperglycemia, resolved #Macrocytic anemia Hospital Course: Patient is a 79-year-old female with a history of A-fib on Eliquis, hyp ertension, breast cancer status post lumpectomy, Sjogren's disease and recent left total hip arthroplasty on 05/07/[address] Melendez presented to ER on 06/07/2024 for progressively worsening dyspnea since 1 week. Patient reports exertional dyspnea since 1 week associated with bilateral leg swelling, orthopnea and PND. Patient had recent follow-up with orthopedic Dr. Melendez and cardiology Dr. Stallings. Patient denies chest pain, abdominal pain, nausea, vomiting, diarrhea or constipation, fever, chills, numbness/weakness/tingling in upper or lower extremities. Patient denies any recent travel or upper respiratory tract infection. Initial evaluation in the ER shows WBC 4.4, hemoglobin 10.4, MCV 103.5, sodium 135, potassium 4.1, chloride 101, bicarb 26, BUN 17, creatinine 0.72, glucose 114, ALP 208, AST 33, ALT 16, NT proBNP 8130. D-dimer 2.76 mg/L Chest x-ray done in the ER shows moderate bilateral pleural effusions with diffuse airspace opacities. EKG done in the ER shows sinus rhythm with occasional supraventricular premature complexes with heart rate of 65 bpm, OK interval 144 ms, QRS duration 78 ms, QTc duration 420 ms. Normal R wave progression. No ST to T wave changes noted. Vital signs on arrival shows 98.0 F, pulse rate 61, respiratory 18, blood pressure 172/74, oxygen saturation 93% on room air. Subsequent vital signs show pulse rate 66, respiratory rate 18, blood pressure 1 5462, oxygen saturation 97% on 2 L via nasal cannula. Cardiology and pulmonology were consulted. Echo done on 05/12/2024 shows LVEF 60 to 65%. Moderate mitral stenosis with severe pulmonary hypertension. Right heart cath on 06/10/2024 shows mean pulmonary arterial pressure of 27. Patient underwent RAFAT on 06/11/2024 which shows severe pulmonary hypertension with RVSP estimated more than 60 mmHg, severe RA dilatation and moderate RV dilatation and moderate TR. Patient underwent patient left heart catheterization and coronary angiography on 06/12/2024 which showed multivessel CAD. Cardiothoracic surgery was consulted and patient was considered high risk surgical candidate for CABG. Patient underwent angioplasty on 06/15/2024 and PCI of the left circumflex and LAD was performed. Patient started on dual antiplatelet therapy with aspirin and Plavix and anticoagulation with Eliquis. Patient continue improving her symptoms. Denies chest pain, shortness of breath, nausea, vomiting, fever. I's and O's are optimized. Patient is hemodynamically stable and medically optimized for discharge. Patient is advised to follow-up with PCP and cardiology. Discharge disposition: Home with self-care Vital signs reviewed. Vital signs reviewed General: non toxic, no distress, appears at stated age, normal weight Derm: no unusual rashes/lesions, warm Head: atraumatic, normocephalic, symmetric Eyes: EOMI, no lid lag, anicteric sclera, pupils equal round reactive to light ENT: Nose and ears atraumatic Neck: No cervical lymphadenopathy, trachea midline, supple Mouth: no lip lesion, mucus membranes moist Cardiovascular: S1S2 reg, no murmur, positive dorsalis pedis pulse bilateral, 1+ bilateral lower extremity edema Lungs: CTAB, no wheezing, no use of accessory muscles. Abdominal: soft, nontender to palpation, no guarding Ext: muscle strength 5 out of 5 in all 4 extremities grossly, no gross muscle atrophy, no contractures, Neuro: CN II-XI grossly intact, no gross focal neuro deficits Psych: Alert, oriented, appropriate affect Dictation was produced using [employer] software. Please excuse any grammatical, word or spelling errors. Patient Condition at Discharge: Stable Plan - Discharge Summary New Discharge Prescriptions: New Aspirin 81 mg PO DAILY #30 tab Apixaban [Eliquis] 2.5 mg PO BID 21 Days tab Furosemide [Lasix] 20 mg PO DAILY #30 tab Clopidogrel [Plavix] 75 mg PO DAILY #30 tab Losartan [Cozaar] 25 mg PO DAILY #30 tab Atorvastatin [Lipitor] 80 mg PO DAILY #30 tab Continue Metoprolol Tartrate [Lopressor] 100 mg PO BID 30 Days #120 tab cycloSPORINE 0.05% OPHTH SOLN [Restasis] 1 drop BOTH EYES BID Acetaminophen/Diphenhydramine [Tylenol PM 500-25mg] 2 tab PO HS amLODIPine [Norvasc] 5 mg PO HS Amiodarone [Cordarone] 200 mg PO DAILY Discontinued Apixaban [Eliquis] 5 mg PO BID 30 Days #60 tab Discharge Medication List cycloSPORINE 0.05% OPHTH SOLN [Restasis] 1 drop BOTH EYES BID 05/11/24 [History] Metoprolol Tartrate [Lopressor] 100 mg PO BID 30 Days #120 tab 05/16/24 [Rx] Acetaminophen/Diphenhydramine [Tylenol PM 500-25mg] 2 tab PO HS 06/08/24 [History] Amiodarone [Cordarone] 200 mg PO DAILY 06/08/24 [History] amLODIPine [Norvasc] 5 mg PO HS 06/08/24 [History] Apixaban [Eliquis] 2.5 mg PO BID 21 Days tab 06/16/24 [Rx] Aspirin 81 mg PO DAILY #30 tab 06/16/24 [Rx] Atorvastatin [Lipitor] 80 mg PO DAILY #30 tab 06/16/24 [Rx] Clopidogrel [Plavix] 75 mg PO DAILY #30 tab 06/16/24 [Rx] Furosemide [Lasix] 20 mg PO DAILY #30 tab 06/16/24 [Rx] Losartan [Cozaar] 25 mg PO DAILY #30 tab 06/16/24 [Rx] Follow up Appointment(s)/Referral(s): Macey Stallings MD [STAFF PHYSICIAN] - 06/24/24 4:00 pm (at [facility] ) Gin Elias MD [STAFF PHYSICIAN] - 1-2 Days Medical Team,The [NON-STAFF] - Patient Instructions/Handouts: Heart Failure (DC), Coronary Angioplasty (DC) Activity/Diet/Wound Care/Special Instructions: Please follow-up with PCP and cardiology within 1 to 2 weeks. Discharge/Stand Alone Forms: Who Do I Call? Discharge Disposition: HOME SELF-CARE
== END 2024-06-16 13:35 | disposition home or self-care (01) | DRG 323 ==
LOC: EC 22:12 → 5NMEDONC 06-08 00:57 → 3SCARD 06-08 14:53
PROVIDERS: ADMIT Hospitalist; ATTEND Hospitalist
PROC: 4A023N6 Measurement of Cardiac Sampling and Pressure, Right Heart, Percutaneous Approach (ICD-10-PCS; 2024-06-10)
PROC: B2101ZZ Fluoroscopy of Single Coronary Artery using Low Osmolar Contrast (ICD-10-PCS; 2024-06-10)
PROC: B31U1ZZ Fluoroscopy of Pulmonary Trunk using Low Osmolar Contrast (ICD-10-PCS; 2024-06-10)
PROC: B2141ZZ Fluoroscopy of Right Heart using Low Osmolar Contrast (ICD-10-PCS; 2024-06-10)
PROC: B24BZZ4 Ultrasonography of Heart with Aorta, Transesophageal (ICD-10-PCS; 2024-06-11)
PROC: 4A023N7 Measurement of Cardiac Sampling and Pressure, Left Heart, Percutaneous Approach (ICD-10-PCS; 2024-06-12)
PROC: B2151ZZ Fluoroscopy of Left Heart using Low Osmolar Contrast (ICD-10-PCS; 2024-06-12)
PROC: B2111ZZ Fluoroscopy of Multiple Coronary Arteries using Low Osmolar Contrast (ICD-10-PCS; 2024-06-12)
PROC: 027137Z Dilation of Coronary Artery, Two Arteries with Four or More Drug-eluting Intraluminal Devices, Percutaneous Approach (ICD-10-PCS; principal; 2024-06-15 07:30)
PROC: 02F03ZZ Fragmentation in Coronary Artery, One Artery, Percutaneous Approach (ICD-10-PCS; 2024-06-15 07:30)
PROC: B240ZZ3 Ultrasonography of Single Coronary Artery, Intravascular (ICD-10-PCS; 2024-06-15 07:30)
DX: I25.10 Atherosclerotic heart disease of native coronary artery without angina pectoris (principal); I50.33 Acute on chronic diastolic (congestive) heart failure; J96.01 Acute respiratory failure with hypoxia; I27.22 Pulmonary hypertension due to left heart disease; J91.8 Pleural effusion in other conditions classified elsewhere; I11.0 Hypertensive heart disease with heart failure; M35.00 Sjogren syndrome, unspecified; D53.9 Nutritional anemia, unspecified; I08.1 Rheumatic disorders of both mitral and tricuspid valves; E87.1 Hypo-osmolality and hyponatremia; I50.82 Biventricular heart failure; M06.9 Rheumatoid arthritis, unspecified; I48.0 Paroxysmal atrial fibrillation; E87.5 Hyperkalemia; E78.5 Hyperlipidemia, unspecified; G47.30 Sleep apnea, unspecified; E87.6 Hypokalemia; R54 Age-related physical debility; R73.9 Hyperglycemia, unspecified; R74.8 Abnormal levels of other serum enzymes; Z96.642 Presence of left artificial hip joint; Z85.3 Personal history of malignant neoplasm of breast; Z91.81 History of falling; Z92.3 Personal history of irradiation; Z87.891 Personal history of nicotine dependence; Z79.899 Other long term (current) drug therapy
CPT/HCPCS: 36415; 71045; 71046; 71275; 76604; 80048; 80053; 80061; 80074; 82810; 82977; 83036; 83735; 83880; 84443; 84484; 85018; 85025; 85027; 85379; 85610; 85730; 92972; 92978; 92979; 93005; 93308; 93312; 93320; 93325; 93451; 93458; 93799; 93970; 94760; 96374; 96375; 96376; 99285